=== PATIENT | female | born 1990 | race Caucasian/White ===

== ENCOUNTER 2025-09-03 19:24 | Inpatient (IN) | payer OTHER, SELFPAY ==
--- OUTSIDE RECORDS SUMMARY | 2025-09-03 19:16 | XMS RPT_ITS | CCD ---
Author Organization [facility] Care Team Providers Care Inspector Wire [employer] Name Role Phone Unavailable Primary Care Provider Unavailabl e Yon Carrero Referring Unavailable Magan, Yon Attending Unavailable Magan, Karvinny Admitting Unavailable Care Physician, No Primary Primary Care Unava ilable PHILLIP SAPPA Attending Unavailable PLOTTS, LALITA Referring Unavailable PLOTTS, LALITA Referring Unavailable CHINO, PINA Referring Unavailable GARCIA, WESTLEY Attending Unavailable GARCIA, WESTLEY Referring Unavailable PLOTTS, LALITA Attending Unavailable PLOTTS, LALITA Referring Unavailable PLOTTS, LALITA Attending Unavailable SELF Referring Unavailable PLOTTS, LALITA Referring Unavailable GARCIA, WESTLEY Referring Unavailable CHINO, PINA Attending Unavailable SELF Referring Unavailable CHINO, PINA Referring Unavailable JINA ESCALERA Attending Unavailable SELF Referring Unavailable GARCIA, WESTLEY Attending Unavailable MAGAN, KARMON Referring Unavailable CHINO, PINA Attending Unavailable MAGAN, KARMON Referring Unavailable SELF Referring Unavailable MAGAN, KARMON Attending Unavailable SELF Referring Unavailable PLOTTS, LALITA Referring Unavailable MAGAN, KARMON Attending Unavailable PLOTTS, LALITA Referring Unavailable MAGAN, KARMON Attending Unavailable SELF Referring Unavailable EDOUARD, VIDA L Attending Unavailable SELF Referring Unavailable EDOUARD VIDA L Attending Unavailable SELF Referring Unavailable CHINO, PINA Referring Unavailable WISWELL, PATSY Attending Unavailable WISWELL, PATSY Referring Unavailable Allergies Allergy Classification Reported Allergen(s) Allergy Type Date of Onset Reaction(s) Facility (12 sources) Tetracycline; Translations: [TETRACYCLINE] Drug Allergy 01-17-2025 GI Upset [facility] Medications Current Medications Medication Drug Class(es) Dates Sig (Normalized) Sig (Original) aspirin 81 mg delayed release oral tablet (11 sources) Platelet Aggregation Inhibitor, Nonsteroidal Anti-inflammatory Drug Start: 01-18-2025 take 1 tablet by mouth once daily aspirin, enteric coated (ECOTRIN LOW STRENGTH) 81 mg EC tablet Indications: with uncertain dates in first trimester (HCC) , care, first in first trimester (HCC) Take 1 tablet by mouth once daily. 90 tablet 3 01/18/2025 Active Breast Pump (1 source) Start: 06-19-2025 End: 06-19-2026 Breast Pump Use as directed 1 each 06/19/2025 06/19/2026 Active Docosahexaenoate (5 sources) docosahexaenoic acid (DHA ORAL) Take by mouth. Active hydrocortisone 10 mg/ml topical cream (1 source) Corticosteroid Start: 02-20-2025 End: 03-06-2025 hydrocortisone 1 % cream Apply to affected area once daily as needed for up to 14 days. 30 g 02/20/2025 03/06/2025 Active Magnesium glycinate (3 sources) MAGNESIUM GLYCIN ATE PO Take by mouth. Active miconazole nitrate 20 mg/ml vaginal cream (2 sources) Azole Antifungal Start: 02-17-2025 End: 02-24-2025 miconazole (MONISTAT 7) 2 % vaginal cream Indications: 12 weeks gestation of (HCC) Use 1 applicator vaginally daily at bedtime for 7 days. 54 g 02/17/2025 02/24/2025 Active NO.032-[id number]-DHA ORAL (11 sources) take 1 tablet by mouth once daily NO.[id number]-D HICKS ORAL Take 1 tablet by mouth once daily. Active Completed/Discontinued Medications Medication Drug Class(es) Dates Sig (Normalized) Sig (Original) calcium/magnesium (CALCIUM AND MAGNESIUM ORAL) (9 sources) End: 05-16-2025 take 1 tablet by mouth once daily calcium/magnesium (CALCIUM AND MAGNESIUM ORAL) Take 1 tablet by mouth once daily. 05/16/2025 Discontinued take 1 tablet by mouth once roldan y calcium/magnesium (CALCIUM AND MAGNESIUM ORAL) Take 1 tablet by mouth once daily. Active Problems Active Problems Problem Classification Problem Date Documented Da te Episodic/Chronic Heart valve disorders (1 source) Rheumatic tricuspid insufficiency; Translations: [Tricuspid valve insufficiency, unspecified etiology] Onset: 07-05-2025 Chronic Immunizations and screening for infectious disease (13 sources) Patient encounter status; Translations: [Encounter for screening for infections with a predominantly sexual mode of transmission] Onset: 01-18-2025 01-18-2025 Episodic Mycoses (1 source) Candidiasis of vagina; Translations: [Vaginal yeast infection] 02-17-2025 Episodic Other complications of (1 source) Uterine size-date discrepancy, third trimester; Translations: [Uterine size-date discrepancy, third trimester (HCC)] Onset: 08-16-2025 Episodic Other gastrointestinal disorders (1 source) Constipation; Translations: [Constipation, unspecified] 04-04-2025 Episodic Other infections; including parasitic (1 source) Personal history of other infectious and parasitic diseases; Translations: [History of cold sores] Onset: 08-03-2025 Episodic Other inflammatory condition of skin (1 source) Other psoriatic arthropathy; 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[facility])] Onset: 08-10-2025 Chronic Other inflammatory condition of skin (1 source) Arthropathic psoriasis, unspecified; Translations: [Psoriatic arthritis ([facility])] Onset: 08-09-2025 Chronic Other inflammatory condition of skin (1 source) Seborrheic dermatitis, unspecified; Translations: [Seborrheic dermatitis] Onset: 07-05-2025 Episodic Other nervous system disorders (1 source) Carpal tunnel syndrome, left upper limb; Translations: [Carpal tunnel syndrome on left] Onset: 07-05-2025 Chronic Other non-traumatic joint disorders (2 sources) Bilateral pain of joint of hands; Translations: [Pain in joints of right hand] 05-16-2025 Episodic Other non-traumatic joint disorders (1 source) Pain in joints of right hand; Translations: [Arthralgia of both hands] Onset: 08-10-2025 Episodic Other non-traumatic joint disorders (1 source) Pain in joints of left hand; Translations: [Arthralgia of both hands] Onset: 08-10-2025 Episodic Other and delivery including normal (20 sources) with uncertain dates; Translations: [First trimester ] Onset: 01-18-2025 01-18-2025 Episodic Other screening for suspected conditions (not mental disorders or infectious disease) (3 sources) Cancer cervix screening status; Translations: [Encounter for screening for malignant neoplasm of cervix] Onset: 01-18-2025 01-18-2025 Episodic Other skin disorders (2 sources) Eruption; Translations: [Rash and other nonspecific skin eruption] 05-16-2025 Episodic Other skin disorders (1 source) Rash and other nonspecific skin eruption; Translations: [Rash] Onset: 07-05-2025 Episodic Other skin disorders (1 source) Other nail disorders; Translations: [Nail pitting] Onset: 07-05-2025 Episodic Jennifer-; endo-; and myocarditis; cardiomyopathy (except that caused by tuberculosis or sexually transmitted disease) (12 sources) Heart valve disorder; Translations: [Endocarditis, valve unspecified] 01-18-2025 Chronic Residual codes; unclassified (2 sources) Gestation period, 12 weeks; Translations: [12 weeks gestation of ] 02-17-2025 Episodic Residual codes; unclassified (1 source) Gestation period, 16 weeks; Translations: [16 weeks gestation of ] 03-17-2025 Episodic Residual codes; unclassified (2 sources) Gestation period, 18 weeks; Translations: [18 weeks gestation of ] 04-04-2025 Episodic Residual codes; unclassified (1 source) Gestation period, 24 weeks; Translations: [24 weeks gestation of ] 05-16-2025 Episodic Residual codes; unclassified (1 source) Gestation period, 26 weeks; Translations: [26 weeks gestation of ] 05-30-2025 Episodic Residual codes; unclassified (1 source) Gestation period, 29 weeks; Translations: [29 weeks gestation of ] 06-19-2025 Episodic Residual codes; unclassified (1 source) 38 weeks gestation of ; Translations: [38 weeks gestation of (HCC)] Onset: 08-16-2025 Episodic Residual codes; unclassified (1 source) Family history of diseases of the skin and subcutaneous tissue; Translations: [Family history of psoriasis] Onset: 08-10-2025 Episodic Residual codes; unclassified (1 source) 37 weeks gestation of ; Translations: [37 weeks gestation of (HCC)] Onset: 08-09-2025 Episodic Residual codes; unclassified (1 source) 36 weeks gestation of ; Translations: [36 weeks gestation of (HCC)] Onset: 08-03-2025 Episodic Residual codes; unclassified (1 source) 34 weeks gestation of ; Translations: [34 weeks gestation of (HCC)] Onset: 07-19-2025 Episodic Residual codes; unclassified (1 source) 32 weeks gestation of ; Translations: [32 weeks gestation of (HCC)] Onset: 07-05-2025 Episodic Residual codes; unclassified (1 source) 29 weeks gestation of ; Translations: [29 weeks gestation of (HCC)] Onset: 06-19-2025 Episodic Residual codes; unclassified (1 source) 26 weeks gestation of ; Translations: [26 weeks gestation of (HCC)] Onset: 05-30-2025 Episodic Residual codes; unclassified (1 source) 24 weeks gestation of ; Translations: [24 weeks gestation of (HCC)] Onset: 05-30-2025 Episodic Unclassified (11 sources) [facility] Education - COMMON Onset: 01-18-2025 01-18-2025 Unclassified (11 sources) Education - [place] Onset: 01-18-2025 01-18-2025 Unclassified (1 source) Vaginal yeast infection; Translations: [Vaginal yeast infection] Onset: 02-17-2025 Past or Other Problems Problem Classification Problem Date Documented Date Episodic/Chronic Nausea and vomiting (13 sources) Nausea; Translations: [Nausea] Onset: 01-18-2025 01-18-2025 Episodic Residual codes; unclassified (1 source) 18 weeks gestation of ; Translations: [18 weeks gestation of ([facility])] Onset: 04-04-2025 Episodic Residual codes; unclassified (1 source) 16 weeks gestation of ; Translations: [16 weeks gestation of ([facility])] Onset: 03-17-2025 Episodic Residual codes; unclassified (1 source) 12 weeks gestation of ; Translations: [12 weeks gestation of ([facility])] Onset: 02-17-2025 Episodic Viral infection (12 sources) Oral herpes simplex infection; Translations: [Herpesviral gingivostomatitis and pharyngotonsillitis] Onset: 02-17-2025 02-17-2025 Episodic Results Test Name Value Interpretation Reference Range Facil ity CBC panel Auto (Bld)on 08-10 Erythrocyte distribution width (RBC) [Ratio] 13.5 % Normal 11.5-15.0 [facility] Comment on above: Order Comment: Speci men Type: BLOOD SPECIMEN Ordering Facility: [facility] Address: [address] [place] [address] Performed By: #### 5 8410-2 #### [id number] [address] [place] [address] [place] Hematocrit (Bld) [Volume fraction] 40.3 % Normal 36.0-46.0 [facility] Comment on above: Order Comment: Speci men Type: BLOOD SPECIMEN Ordering Facility: [facility] Address: [address] [place] [address] Performed By: #### 5 8410-2 #### [facility] [id number] [address] [place] [address] [place] Hemoglobin (Bld) [Mass/Vol] 14.0 g/dL Normal 11.5-15.5 [facility] Comment on above: Order Comment: Speci men Type: BLOOD SPECIMEN Ordering Facility: [facility] Address: [address] [place] [address] Performed By: #### 5 8410-2 #### [facility] [id number] [address] [place] [address] [place] MCH (RBC) [Entitic mass] 30.6 pg Normal 26.0-34.0 [facility] Comment on above: Order Comment: Speci men Type: BLOOD SPECIMEN Ordering Facility: [facility] Address: [address] [place] [address] Performed By: #### 5 8410-2 #### [facility] [id number] [address] [place] [address] [place] MCHC (RBC) [Mass/Vol] 34.7 g/dL Normal 30.5-36.0 [facility] Comment on above: Order Comment: Speci men Type: BLOOD SPECIMEN Ordering Facility: [facility] Address: [address] [place] [address] Performed By: #### 5 8410-2 #### [facility] [id number] [address] [place] [address] [place] MCV (RBC) [Entitic vol] 88.0 fL Normal 80.0-100.0 [facility] Comment on above: Order Comment: Speci men Type: BLOOD SPECIMEN Ordering Facility: [facility] Address: [address] [place] [address] Performed By: #### 5 8410-2 #### [facility] CLIA [id number] [address] [place] [address] [place] Nucleated RBC (Bld) [#/Vol] 10*3/uL Normal <0.01 [facility] Comment on above: Order Comment: Speci men Type: BLOOD SPECIMEN Ordering Facility: [facility] Address: [address] [place] [address] Performed By: #### 5 8410-2 #### [facility] CLIA [id number] [address] [place] [address] [place] Platelet mean volume (Bld) [Entitic vol] 11.3 fL Normal 9.0-12.7 [facility] Comment on above: Order Comment: Speci men Type: BLOOD SPECIMEN Ordering Facility: [facility] Address: [address] [place] [address] Performed By: #### 5 8410-2 #### [facility] CLIA [id number] [address] [place] [address] [place] Platelets (Bld) [#/Vol] 154 10*3/uL Normal 150-400 [facility] Comment on above: Order Comment: Speci men Type: BLOOD SPECIMEN Ordering Facility: [facility] Address: [address] [place] [address] Performed By: #### 5 8410-2 #### [facility] CLIA [id number] [address] [place] [address] [place] RBC (Bld) [#/Vol] 4.58 10*6/uL Normal 3.90-5.20 [facility] Comment on above: Order Comment: Speci men Type: BLOOD SPECIMEN Ordering Facility: [facility] Address: [address] [place] [address] Performed By: #### 5 8410-2 #### [facility] [id number] [address] [place] [address] [place] WBC (Bld) [#/Vol] 7.85 10*3/uL Normal 3.70-11.00 [facility] Comment on above: Order Comment: Speci men Type: BLOOD SPECIMEN Ordering Facility: [facility] Address: [address] [place] [address] Performed By: #### 5 8410-2 #### [facility] [id number] [address] [place] [address] OF [place] CNOVon 08-10-2025 CNOV Office Visit (RHWSTR ) CHEMA BARBOSA ([id number]) 1990 F INT Date Time Provider Department 08/10/25 10:30 AM PINA MAGANA RHWSTR During your visit today, we recorded the following information about you: Pulse Respiration Blood pressure 117/minute 17/minute 131/89 Pina Magana PA-C 08/10/2025 5:14 PM Signed Rheumatology FOLLOW UP VISIT Date of Service: 08/10/2025 Patient: Chema Barbosa Medical Record: [id number] Primary Care Physician: No primary care provider on file. Last Rheumatology visit: 07/05/2025 (with Pina Magana) History of Present Illness Chema Barbosa is a 35-year-old female, , with a history of arthralgias and stiffness, presenting for follow-up. Chema is currently and due in approximately one week. She reports persistent arthralgias and stiffness, primarily in the hands, wrists, and knees. She notes that the pain and stiffness are most pronounced in the morning. She denies significant edema, stating that any swelling is likely due to her current weight gain of approximately 16 kg. She recently completed a 6-day course of methylprednisolone, starting on July 28 and ending on August 03, prescribed by her ENT at [facility]. She reports significant improvement in joint pain and stiffness while on the medication, with pain levels decreasing to 7/10. However, she notes that the pain began to return two days ago and is now back to a 7/10 severity. She expresses reluctance to continue long-term corticosteroid use due to potential risks to both herself and her baby. She is currently taking sulfasalazine, 1 tablet twice daily, but reports no noticeable benefits from the medication. She denies any side effects from sulfasalazine. She also reports worsening ear symptoms today, which she believes may be related to blood pressure fluctuations. Her blood pressure readings have been 120/86 mmHg yesterday and 131/89 mmHg today. She denies significant proteinuria, noting only trace amounts, and is actively managing her diet to reduce edema. This is her first , and she is hoping for a natural delivery without induction. She expresses a preference for her baby to be born after August 27. She is currently seeing her OB weekly and reports that her OB was supportive of her recent methylprednisolone taper. Pain Evaluation 07/05/2025 08/10/2025 Pain Evaluation Pain Score 6 7 Location Hand-Left Location Comment b/l Frequency Continuous Continuous Patient-Entered Data PROMIS Assessments No data to display No data to display No data to display No data to display RAPID 3 Nicole Activities of Daily Living No Data Dress self? - Get in and out of bed? - Walk outdoors? - Wash and dry body? - Get in and out of car? - RAPID 3 Disease Activity Weighed Score Levels: 0 - 1: Near Remission 1.3 - 2.0: Low Severity 2.3 - 4.0: Moderate Severity 4.3 - 10.0: High Severity No data to display Review of Systems ROS RHEUMATOLOGYAll other reviewed and negative other than HPI. Past Medical History PAST MEDICAL HISTORY Diagnosis Date Broken arm right age 13 Heart valve disorder tricuspid valve Past Surgical History History reviewed. No pertinent surgical history. Family History FAMILY HISTORY Problem Relation Age of Onset Hypertension Mother Alcohol abuse Father Social History SOCIAL HISTORY[1] Current Medications Current Outpatient Medications Medication Sig folic acid 1 mg tablet Take 2 tablets by mouth once daily. OTC NUTRITIONAL SUPPLEMENT Take 1 capsule by mouth once daily. CDP cholin MAGNESIUM GLYCINATE PO Take by mouth. aspirin, enteric coated (ECOTRIN LOW STRENGTH) 81 mg EC tablet Take 1 tablet by mouth once daily. NO.579-[id number]-[id number]-DHA ORAL Take 1 tablet by mouth once daily. methylPREDNISolone (MEDROL) 4 mg Take 4 tablets by mouth once daily for 3 days, THEN 3 tablets once daily for 3 days, THEN 2 tablets once daily for 3 days, THEN 1 tablet once daily. sulfaSALAzine (AZULFIDINE) 500 mg tablet Take 1000 mg in the morning and 500 mg in the evening. acyclovir (ZOVIRAX) 400 mg tablet Take 1 tablet by mouth three times a day. docosahexaenoic acid (DHA ORAL) Take by mouth. Labs Latest Ref Rng AND Units 02/17/2025 05/30/2025 07/20/2025 08/10/2025 CBC WBC 3.70 - 11.00 k/uL 6.07 7.53 8.44 7.85 Hemoglobin 11.5 - 15.5 g/dL 13.7 12.6 13.8 14.0 Hematocrit 36.0 - 46.0 % 39.6 37.1 38.6 40.3 Platelet Count 150 - 400 k/uL 196 174 161 154 Abs Neut (ANC) 1.45 - 7.50 k/uL 4.43 5.51 6.73 Abs Lymph 1.00 - 4.00 k/uL 1.17 1.31 0.92 Latest Ref Rng AND Units 07/20/2025 08/10/2025 CMP Sodium 136 - 144 mmol/L 135 135 Potassium 3.7 - 5.1 mmol/L 4.1 4.2 Chloride 98 - 107 mmol/L 105 105 CO2 22 - 30 mmol/L 17 18 Glucose 74 - 99 mg/dL 138 105 BUN 7 - 21 mg/dL 5 9 Creati (more content not included)... Normal [facility] Comprehensive metabolic 2000 panelon 08-10-2025 Albumin [Mass/Vol] 3.7 g/dL Low 3.9-4.9 [facility] Comment on above: Order Comment: Speci men Type: BLOOD SPECIMEN Ordering Facility: [facility] Address: [address] [place] [place] [id number] Performed By: #### 5 8410-2 #### [facility] CL[facility] [id number] [address] [place] [address] [place] ALP [Catalytic activity/Vol] 125 U/L High 34-123 [facility] Comment on above: Order Comment: Speci men Type: BLOOD SPECIMEN Ordering Facility: [facility] Address: [address] [place] [address] Performed By: #### 5 8410-2 #### [facility] CLIA [id number] [address] [place] [address] [place] ALT [Catalytic activity/Vol] 18 U/L Normal 7-38 [facility] Comment on above: Order Comment: Speci men Type: BLOOD SPECIMEN Ordering Facility: [facility] Address: [address] [place] [address] Performed By: #### 5 8410-2 #### [facility] CLIA [id number] [address] [place] [address] [place] Anion gap [Moles/Vol] 12 mmol/L Normal 8-15 [facility] Comment on above: Order Comment: Speci men Type: BLOOD SPECIMEN Ordering Facility: [facility] Address: [address] [place] [address] Performed By: #### 5 8410-2 #### [facility] CLIA [id number] [address] [place] [address] [place] AST [Catalytic activity/Vol] 15 U/L Normal 13-35 [facility] Comment on above: Order Comment: Speci men Type: BLOOD SPECIMEN Ordering Facility: [facility] Address: [facility] [place] [address] Performed By: #### 5 8410-2 #### [facility] CLIA [id number] [address] [place] [address] [place] Bilirubin [Mass/Vol] 0.4 mg/dL Normal 0.2-1.3 [facility] Comment on above: Order Comment: Speci men Type: BLOOD SPECIMEN Ordering Facility: [facility] Address: [address] [place] [address] Performed By: #### 5 8410-2 #### [facility] CLIA [id number] [address] [place] [address] [place] Calcium [Mass/Vol] 9.8 mg/dL Normal 8.5-10.2 [facility] Comment on above: Order Comment: Speci men Type: BLOOD SPECIMEN Ordering Facility: [facility] Address: [address] [place], [place] [id number] Performed By: #### 5 8410-2 #### [facility] CLIA [id number] [address] [place] [address] [place] Chloride [Moles/Vol] 105 mmol/L Normal 98-107 [facility] Comment on above: Order Comment: Speci men Type: BLOOD SPECIMEN Ordering Facility: [facility] Address: [address] [place] [address] Performed By: #### 5 8410-2 #### [facility] CLIA [id number] [address] [place] [address] [place] CO2 [Moles/Vol] 18 mmol/L Low 22-30 [facility] Comment on above: Order Comment: Speci men Type: BLOOD SPECIMEN Ordering Facility: [facility] Address: [address] [place] [address] Performed By: #### 5 8410-2 #### [facility] CLIA [id number] [address] [place] [address] [place] Creatinine [Mass/Vol] 0.65 mg/dL Normal 0.58-0.96 [facility] Comment on above: Order Comment: Speci men Type: BLOOD SPECIMEN Ordering Facility: [facility] Address: [address] [place] [address] Performed By: #### 5 8410-2 #### [facility] [id number] [address] [place] [address] [place] eGFRcr SerPlBld CKD-EPI 2020 119 mL/min/1.73m??? Normal >=60 [facility] Comment on above: Order Comment: Eric fierro Type: BLOOD SPECIMEN Ordering Facility: [facility] Address: [address] [place] [address] Result Comment: Rosa mated Glomerular Filtration Rate (eGFR) is calculated using the 2020 CKD-EPI creatinine equation. This equation utilizes serum creatinine, sex, and age as parameters. The creatinine assay has traceable calibration to isotope dilution-mass spectrometry. Refer to KDIGO guidelines for clinical interpretation. In patients with unstable renal function, e.g. those with acute kidney injury, the eGFR may not accurately reflect actual GFR. Performed By: #### 5 8410-2 #### [facility] CLIA [id number] [address] [place] [address] [place] Glucose [Mass/Vol] 105 mg/dL High 74-99 [facility] Comment on above: Order Comment: Eric fierro Type: BLOOD SPECIMEN Ordering Facility: [facility] Address: [address] [place] [address] Result Comment: The [place] [employer] (ADA) provides guidance for cutoff values for fasting glucose and random glucose. The ADA defines fasting as no caloric intake for at least 8 hours. Fasting plasma glucose results between 100 to 125 mg/dL indicate increased risk for diabetes (prediabetes). Fasting plasma glucose results greater than or equal to 126 mg/dL meet the criteria for diagnosis of diabetes. In the absence of unequivocal hyperglycemia, results should be confirmed by repeat testing. In a patient with classic symptoms of hyperglycemia or hyperglycemic crisis, random plasma glucose results greater than or equal to 200 mg/dL meet the criteria for diagnosis of diabetes. Reference: Standards of Medical Care in Diabetes 2016, [place] [employer]. Diabetes Care. 2016.39(Suppl 1). Performed By: #### 5 8410-2 #### [facility] CLIA [id number] [address] [place] [address] [place] Potassium [Moles/Vol] 4.2 mmol/L Normal 3.7-5.1 [facility] Comment on above: Order Comment: Speci men Type: BLOOD SPECIMEN Ordering Facility: [facility] Address: [address] [place] [address] Performed By: #### 5 8410-2 #### [facility] CLIA [id number] [address] [place] [address] [place] Protein [Mass/Vol] 6.6 g/dL Normal 6.3-8.0 [facility] Comment on above: Order Comment: Speci men Type: BLOOD SPECIMEN Ordering Facility: [facility] Address: [address] [place] [address] Performed By: #### 5 8410-2 #### [facility] [id number] [address] [place] [address] [place] Sodium [Moles/Vol] 135 mmol/L Low 136-144 [facility] Comment on above: Order Comment: Speci men Type: BLOOD SPECIMEN Ordering Facility: [facility] Address: [address] [place] [address] Performed By: #### 5 8410-2 #### [facility] [id number] [address] [place] [address] [place] Urea nitrogen [Mass/Vol] 9 mg/dL Normal 7-21 [facility] Comment on above: Order Comment: Speci men Type: BLOOD SPECIMEN Ordering Facility: [facility] Address: [address] [place] [address] Performed By: #### 5 8410-2 #### [facility] CLIA [id number] [address] [place] [address] [place] ROUTINE, GROUP B ST REPTOCOCCUS BY PCRon 08-03-2025 ROUTINE, GROUP B STREPTOCOCCUS BY PCR Not detected Normal [facility] Comment on above: Performed By: #### G LTGST #### [facility] CLIA [id number] [address] [place] [address] [place] CBC W Auto Differential pane l (Bld)on 07-20-2025 Basophils (Bld) [#/Vol] 10*3/uL Normal <0.11 [facility] Comment on above: Order Comment: Speci men Type: BLOOD SPECIMEN Ordering Facility: [facility] Address: [address] [place] [address] Performed By: #### 5 7021-8 #### [facility] CLIA [id number] [address] [place] [address] [place] Basophils/100 WBC (Bld) 0.2 % Normal [facility] Comment on above: Order Comment: Speci men Type: BLOOD SPECIMEN Ordering Facility: [facility] Address: [address] [place] [address] Performed By: #### 5 7021-8 #### [facility] CLIA [id number] [address] [place] [address] [place] Differential cell count method Nom (Bld) Auto Normal [facility] Comment on above: Order Comment: Speci men Type: BLOOD SPECIMEN Ordering Facility: [facility] Address: [address] [place] [address] Performed By: #### 5 7021-8 #### [facility] CLIA [id number] [address] [place] [address] [place] Eosinophils (Bld) [#/Vol] 0.04 10*3/uL Normal <0.46 [facility] Comment on above: Order Comment: Speci men Type: BLOOD SPECIMEN Ordering Facility: [facility] Address: [address] [place] [address] Performed By: #### 5 7021-8 #### [facility] CLIA [id number] [address] [place] [address] [place] Eosinophils/100 WBC (Bld) 0.5 % Normal [facility] Comment on above: Order Comment: Speci men Type: BLOOD SPECIMEN Ordering Facility: [facility] Address: [address] [place] [address] Performed By: #### 5 7021-8 #### [facility] CLIA [id number] [address] [place] [address] [place] Erythrocyte distribution width (RBC) [Ratio] 13.2 % Normal 11.5-15.0 [facility] Comment on above: Order Comment: Speci men Type: BLOOD SPECIMEN Ordering Facility: [facility] Address: [address] [place] [address] Performed By: #### 5 7021-8 #### [facility] [id number] [address] [place] [address] [place] Hematocrit (Bld) [Volume fraction] 38.6 % Normal 36.0-46.0 [facility] Comment on above: Order Comment: Speci men Type: BLOOD SPECIMEN Ordering Facility: [facility] Address: [address] [place] [address] Performed By: #### 5 7021-8 #### [facility] [id number] [address] [place] [address] [place] Hemoglobin (Bld) [Mass/Vol] 13.8 g/dL Normal 11.5-15.5 [facility] Comment on above: Order Comment: Speci men Type: BLOOD SPECIMEN Ordering Facility: [facility] Address: [address] [place] [address] Performed By: #### 5 7021-8 #### [facility] CLIA [id number] [address] [place] [address] [place] Immature granulocytes (Bld) [#/Vol] 0.11 10*3/uL High <0.10 [facility] Comment on above: Order Comment: Speci men Type: BLOOD SPECIMEN Ordering Facility: [facility] Address: [address] [place] [address] Performed By: #### 5 7021-8 #### [facility] CLIA [id number] [address] [place] [address] [place] Immature granulocytes/100 WBC (Bld) 1.3 % Normal [facility] Comment on above: Order Comment: Speci men Type: BLOOD SPECIMEN Ordering Facility: [facility] Address: [address] [place] [address] Performed By: #### 5 7021-8 #### [facility] [id number] [address] [place] [address] [place] Lymphocytes (Bld) [#/Vol] 0.92 10*3/uL Low 1.00-4.00 [facility] Comment on above: Order Comment: Speci men Type: BLOOD SPECIMEN Ordering Facility: [facility] Address: [address] [place] [address] Performed By: #### 5 7021-8 #### [facility] [id number] [address] [place] [address] [place] Lymphocytes/100 WBC (Bld) 10.9 % Normal [facility] Comment on above: Order Comment: Speci men Type: BLOOD SPECIMEN Ordering Facility: [facility] Address: [address] [place] [address] Performed By: #### 5 7021-8 #### [facility] [id number] [address] [place] [address] [place] MCH (RBC) [Entitic mass] 30.9 pg Normal 26.0-34.0 [facility] Comment on above: Order Comment: Speci men Type: BLOOD SPECIMEN Ordering Facility: [facility] Address: [address] [place] [address] Performed By: #### 5 7021-8 #### [facility] CLIA [id number] [address] [place] [address] [place] MCHC (RBC) [Mass/Vol] 35.8 g/dL Normal 30.5-36.0 [facility] Comment on above: Order Comment: Speci men Type: BLOOD SPECIMEN Ordering Facility: [facility] Address: [address] [place] [address] Performed By: #### 5 7021-8 #### [facility] CLIA [id number] [address] [place] [address] [place] MCV (RBC) [Entitic vol] 86.4 fL Normal 80.0-100.0 [facility] Comment on above: Order Comment: Speci men Type: BLOOD SPECIMEN Ordering Facility: [facility] Address: [address] [place] [address] Performed By: #### 5 7021-8 #### [facility] CLIA [id number] [address] [place] [address] [place] Monocytes (Bld) [#/Vol] 0.62 10*3/uL Normal <0.87 [facility] Comment on above: Order Comment: Speci men Type: BLOOD SPECIMEN Ordering Facility: [facility] Address: [address] [place] [address] Performed By: #### 5 7021-8 #### [facility] CLIA [id number] [address] [place] [address] [place] Monocytes/100 WBC (Bld) 7.3 % Normal [facility] Comment on above: Order Comment: Speci men Type: BLOOD SPECIMEN Ordering Facility: [facility] Address: [address] [place] [address] Performed By: #### 5 7021-8 #### [facility] CLIA [id number] [address] [place] [address] [place] Neutrophils (Bld) [#/Vol] 6.73 10*3/uL Normal 1.45-7.50 [facility] Comment on above: Order Comment: Speci men Type: BLOOD SPECIMEN Ordering Facility: [facility] Address: [address] [place] [address] Performed By: #### 5 7021-8 #### [facility] CLIA [id number] [address] [place] [address] [place] Neutrophils/100 WBC (Bld) 79.8 % Normal [facility] Comment on above: Order Comment: Speci men Type: BLOOD SPECIMEN Ordering Facility: [facility] Address: [address] [place] [address] Performed By: #### 5 7021-8 #### [facility] [id number] [address] [place] [address] [place] Nucleated RBC (Bld) [#/Vol] 10*3/uL Normal <0.01 [facility] Comment on above: Order Comment: Speci men Type: BLOOD SPECIMEN Ordering Facility: [facility] Address: [address] [place] [address] Performed By: #### 5 7021-8 #### [facility] [id number] [address] [place] [address] [place] Nucleated RBC/100 WBC (Bld) [Ratio] 0.0 /100 WBC Normal [facility] Comment on above: Order Comment: Speci men Type: BLOOD SPECIMEN Ordering Facility: [facility] Address: [address] [place] [address] Performed By: #### 5 7021-8 #### [facility] [id number] [address] [place] [address] [place] Platelet mean volume (Bld) [Entitic vol] 11.7 fL Normal 9.0-12.7 [facility] Comment on above: Order Comment: Speci men Type: BLOOD SPECIMEN Ordering Facility: [facility] Address: [address] [place] [address] [place] [address] Performed By: #### 5 7021-8 #### [facility] CLIA [id number] [address] [place] [address] [place] Platelets (Bld) [#/Vol] 161 10*3/uL Normal 150-400 [facility] Comment on above: Order Comment: Speci men Type: BLOOD SPECIMEN Ordering Facility: [facility] Address: [address] [place], [place] [address] Performed By: #### 5 7021-8 #### [facility] CLIA [id number] [address] [place] [address] [place] RBC (Bld) [#/Vol] 4.47 10*6/uL Normal 3.90-5.20 [facility] Comment on above: Order Comment: Speci men Type: BLOOD SPECIMEN Ordering Facility: [facility] Address: [address] [place], [place] [address] Performed By: #### 5 7021-8 #### [facility] CLIA [id number] [address] [place] [address] [place] WBC (Bld) [#/Vol] 8.44 10*3/uL Normal 3.70-11.00 [facility] Comment on above: Order Comment: Speci men Type: BLOOD SPECIMEN Ordering Facility: [facility] Address: [address] [place], [place] [address] Performed By: #### 5 7021-8 #### [facility] CLIA [id number] [address] [place] [address] [place] Comprehensive metabolic 2000 panelon 07-20-2025 Albumin [Mass/Vol] 3.7 g/dL Low 3.9-4.9 [facility] Comment on above: Order Comment: Speci men Type: FLUID SPECIMEN Ordering Facility: [facility] Address: [address] [place], [place] [address] Performed By: #### L [id number] #### [facility] CLIA [id number] [address] [place], [place] [address] [place] ALP [Catalytic activity/Vol] 107 U/L Normal 34-123 [facility] Comment on above: Order Comment: Speci men Type: FLUID SPECIMEN Ordering Facility: [facility] Address: [address] [place] [address] Performed By: #### L [id number] #### [facility] CLIA [id number] [address] [place] [address] [place] ALT [Catalytic activity/Vol] 36 U/L Normal 7-38 [facility] Comment on above: Order Comment: Speci men Type: FLUID SPECIMEN Ordering Facility: [facility] Address: [address] [place] [address] Performed By: #### L [id number] #### [facility] CLIA [id number] [address] [place] [address] [place] Anion gap [Moles/Vol] 13 mmol/L Normal 8-15 [facility] Comment on above: Order Comment: Speci men Type: FLUID SPECIMEN Ordering Facility: [facility] Address: [address] [place] [address] Performed By: #### L [id number] #### [facility] CLIA [id number] [address] [place] [address] [place] AST [Catalytic activity/Vol] 27 U/L Normal 13-35 [facility] Comment on above: Order Comment: Speci men Type: FLUID SPECIMEN Ordering Facility: [facility] Address: [address] [place], [place] [address] Performed By: #### L [id number] #### [facility] CLIA [id number] [address] [place] [address] [place] Bilirubin [Mass/Vol] 0.4 mg/dL Normal 0.2-1.3 [facility] Comment on above: Order Comment: Speci men Type: FLUID SPECIMEN Ordering Facility: [facility] Address: [address] [place] [address] Performed By: #### L [id number] #### [facility] CLIA [id number] [address] [place] [address] [place] Calcium [Mass/Vol] 9.4 mg/dL Normal 8.5-10.2 [facility] Comment on above: Order Comment: Speci men Type: FLUID SPECIMEN Ordering Facility: [facility] Address: [address] [place] [address] Performed By: #### L [id number] #### [facility] CLIA [id number] [address] [place] [address] [place] Chloride [Moles/Vol] 105 mmol/L Normal 98-107 [facility] Comment on above: Order Comment: Speci men Type: FLUID SPECIMEN Ordering Facility: [facility] Address: [address] [place] [address] Performed By: #### L [id number] #### [facility] CLIA [id number] [address] [place] [address] [place] CO2 [Moles/Vol] 17 mmol/L Low 22-30 [facility] Comment on above: Order Comment: Speci men Type: FLUID SPECIMEN Ordering Facility: [facility] Address: [address] [place] [address] Performed By: #### L [id number] #### [facility] CLIA [id number] [address] [place] [address] [place] Creatinine [Mass/Vol] 0.60 mg/dL Normal 0.58-0.96 [facility] Comment on above: Order Comment: Speci men Type: FLUID SPECIMEN Ordering Facility: [facility] Address: [address] [place] [address] Performed By: #### L [id number] #### [facility] CLIA [id number] [address] [place], [place] [address] [place] eGFRcr SerPlBld CKD-EPI 2020 122 mL/min/1.73m??? Normal >=60 [facility] Comment on above: Order Comment: Eric fierro Type: FLUID SPECIMEN Ordering Facility: [facility] Address: [address] [place] [address] Result Comment: Rosa mated Glomerular Filtration Rate (eGFR) is calculated using the 2020 CKD-EPI creatinine equation. This equation utilizes serum creatinine, sex, and age as parameters. The creatinine assay has traceable calibration to isotope dilution-mass spectrometry. Refer to KDIGO guidelines for clinical interpretation. In patients with unstable renal function, e.g. those with acute kidney injury, the eGFR may not accurately reflect actual GFR. Performed By: #### L [id number] #### [facility] CLIA [id number] [address] [place] [address] [place] Glucose [Mass/Vol] 138 mg/dL High 74-99 [facility] Comment on above: Order Comment: Eric fierro Type: FLUID SPECIMEN Ordering Facility: [facility] Address: [address] [place] [address] Result Comment: The [place] Diabetes [employer] (ADA) provides guidance for cutoff values for fasting glucose and random glucose. The ADA defines fasting as no caloric intake for at least 8 hours. Fasting plasma glucose results between 100 to 125 mg/dL indicate increased risk for diabetes (prediabetes). Fasting plasma glucose results greater than or equal to 126 mg/dL meet the criteria for diagnosis of diabetes. In the absence of unequivocal hyperglycemia, results should be confirmed by repeat testing. In a patient with classic symptoms of hyperglycemia or hyperglycemic crisis, random plasma glucose results greater than or equal to 200 mg/dL meet the criteria for diagnosis of diabetes. Reference: Standards of Medical Care in Diabetes 2016, [place] [employer]. Diabetes Care. 2016.39(Suppl 1). Performed By: #### L [id number] #### [facility] CLIA [id number] [address] [place] [address] [place] Potassium [Moles/Vol] 4.1 mmol/L Normal 3.7-5.1 [facility] Comment on above: Order Comment: Speci men Type: FLUID SPECIMEN Ordering Facility: [facility] Address: [address] [place] [address] Performed By: #### L [id number] #### [facility] CLIA [id number] [address] [place] [address] [place] Protein [Mass/Vol] 6.6 g/dL Normal 6.3-8.0 [facility] Comment on above: Order Comment: Speci men Type: FLUID SPECIMEN Ordering Facility: [facility] Address: [address] [place] [address] Performed By: #### L [id number] #### [facility] CLIA [id number] [address] [place] [address] [place] Sodium [Moles/Vol] 135 mmol/L Low 136-144 [facility] Comment on above: Order Comment: Speci men Type: FLUID SPECIMEN Ordering Facility: [facility] Address: [address] [place] [address] Performed By: #### L [id number] #### [facility] CLIA [id number] [address] [place] [address] [place] Urea nitrogen [Mass/Vol] 5 mg/dL Low 7-21 [facility] Comment on above: Order Comment: Speci men Type: FLUID SPECIMEN Ordering Facility: [facility] Address: [address] [place] [address] Performed By: #### L [id number] #### [facility] CLIA [id number] [address] [place] [address] [place] CNCOon 07-06-2025 CNCO Letter Text Normal [facility] VALENTIN BY IFA SCREENon 07-05-20 25 Nuclear Ab Ql (S) Negative Normal Negative [facility] Comment on above: Order Comment: Speci men Type: BLOOD SPECIMEN Ordering Facility: [facility] Address: [address] [place] [address] Result Comment: Anti -nuclear antibody test is used as an aid in diagnosis of systemic autoimmune diseases. Where positive and clinically warranted, follow-up using disease-specific testing is recommended. Low positive titers are not uncommon with advanced age, certain chronic infections, and malignancies among others. Test methodology: Indirect fluorescence immunoassay (IFA) using HEp-2 cells. Performed By: #### 5 8410-2 #### [facility] CLIA [id number] [address] [place] [address] CNOVon 07-05-2025 CNOV Office Visit (RHWSTR ) CHEMA BARBOSA ([id number]) 1990 F INT Date Time Provider Department 07/05/25 11:00 AM PINA MAGANA WSTR During your visit today, we recorded the following information about you: Pulse Respiration Blood pressure Weight 96/minute 17/minute 108/74 82.1 kg Pian Magana PA-C 07/05/2025 12:44 PM Signed Rheumatology CONSULTATION Date of Service: 07/05/2025 Patient: Chema Barbosa Medical Record: [id number] Primary Care Physician: No primary care provider on file. Last Rheumatology visit: None at [facility] Referring Provider: Yon Jackson [place] [phone] Chema Barbosa is here today at request of Dr. Carrero specifically for consultation of my opinion in regards to the chief complaint listed below. Correspondence will be shared today via the [facility] electronic health record or through regular mail, where applicable. 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 Patient/authorized appliance service representative agreed to proceed History of Present Illness The patient is a 35-year-old female with seborrheic dermatitis, presenting at 32 weeks? gestation for evaluation of new-onset inflammatory polyarthritis affecting the hands, wrists, and Achilles tendons. Chema Barbosa reports a 6-8-week history of joint pain in both hands, involving all joints up to the wrists. She notes swelling and warmth in the right wrist and thumb, for which she has been using an yciu-ftd-ulqriyk brace continuously for 6 weeks without improvement. She experiences significant pain at night, particularly when pulling bed sheets, and is unable to make a fist in the morning due to stiffness and swelling. She also reports paresthesia in the left hand, affecting the middle three fingers. Additionally, she has bilateral Achilles tendon pain, worse in the morning and at night, with stiffness lasting approximately 10 minutes. The pain decreases with activity. She notes mild knee pain that began 2 weeks ago, which she attributes to weight gain. She denies pain in the elbows, shoulders, ankles, or feet. Chema Barbosa has a history of chronic mid-thoracic back pain for several years, previously evaluated with an MRI in [place], which showed no significant findings. She denies low back pain or sacroiliac joint pain. 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 She has since switched to T-Angel shampoo and uses topical corticosteroids for flare-ups in the temporal and parietal areas. She reports persistent flaking but denies any plaques. She denies oral or nasal ulcers, photosensitivity, Raynaud's phenomenon, unexplained fevers, ocular inflammation, dry eyes, dry mouth, dyspnea, cough, diarrhea, or hematochezia. She experiences occasional constipation, which she attributes to . She denies weight loss, smoking, alcohol, or drug use. Chema Barbosa has a family history of psoriasis in her grandmother and a great uncle. She denies any family history of rheumatoid arthritis, lupus, Crohn's disease, or ulcerative colitis. She is currently taking baby aspirin for blood pressure management during . She denies any previous miscarriages and this is her first , expecting a boy. She was diagnosed with tricuspid valve regurgitation approximately one year ago via ultrasound. She has no history of surgeries except for a broken arm at age 13, which required surgical intervention. Pain Evaluation 07/05/2025 Pain Evaluation Pain Score 6 Location Hand-Left Location Comment b/l Frequency Continuous Patient-Entered Data N/A Review of Systems ROS RHEUMATOLOGY RHEUMATOLOGIC REVIEW OF SYSTEMS: No ulcers in mouth or nose No photosensenitivity No history of blood clots No miscarriages - first , boy coming. + fatigue No history of Raynaud's No fevers NO bright red painful eyes No sicca No sob No cough No diarrhea, + Occasional constipation + chronic back pain - Prior eval by ortho in [place] - mostly mid-thoracic region, base of ribs, for about 3 years. That was present all day. NO low back or SI joint pain ? 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 Past Medical History PAST MEDICAL HISTORY Diagnosis Date Broken arm right age 13 Heart valve disorder tricuspid valve Past Surgical History No past surgical history on file. ORIF repair age 13 Family History FAMILY HISTORY Problem Relation Age of Onset Hype (more content not included)... Normal [facility] CRP SerPl-ncon 07-05-2025 CRP [Mass/Vol] mg/L Normal <0.9 [facility] Comment on above: Order Comment: Eric fierro Type: FLUID SPECIMEN Ordering Facility: [facility] Address: [address] [place] [address] Performed By: #### L [id number] #### [facility] CLIA [id number] [address] [place] [address] [place] Cyclic citrullinated peptide IgG Qnon 07-05-2025 [facility] ANTIBODY IGG QUALITATIVE Negative Normal Negative [facility] Comment on above: Order Comment: Eric fierro Type: FLUID SPECIMEN Ordering Facility: [facility] Address: [address] [place] [address] Performed By: #### L [id number] #### [facility] CLIA [id number] [address] [place] [address] [place] ESR Westergren method (Bld) [Velocity]on 07-05-2025 ESR (Bld) [Velocity] 15 mm/h Normal 0-20 [facility] Comment on above: Order Comment: Eric fierro Type: FLUID SPECIMEN Ordering Facility: [facility] Address: [address] [place] [address] Performed By: #### L [id number] #### [facility] CLIA [id number] [address] [place] [address] [place] Rheumatoid fact SerPl-aCncon 07-05-2025 Rheumatoid factor Qn [IU]/mL Normal <16 [facility] Comment on above: Order Comment: Speci men Type: FLUID SPECIMEN Ordering Facility: [facility] Address: [address] [place] [address] Performed By: #### L [id number] #### [facility] CLIA [id number] [address] [place] [address] [place] cCP IgG SerPl-aCncon 025 Cyclic citrullinated peptide IgG Qn <15 Normal <20 [facility] Comment on above: Order Comment: Speci men Type: FLUID SPECIMEN Ordering Facility: [facility] Address: [address] [place] [address] Performed By: #### L [id number] #### [facility] CLIA [id number] [address] [place] [address] [place] CBC W Auto Differential pane l (Bld)on 05-30-2025 Basophils (Bld) [#/Vol] 0.03 10*3/uL Normal <0.11 [facility] Comment on above: Order Comment: Speci men Type: BLOOD SPECIMEN Ordering Facility: [facility] Address: [address] [place] [address] Performed By: #### 5 8410-2 #### [facility] CLIA [id number] [address] [place] [address] [place] Basophils/100 WBC (Bld) 0.4 % Normal [facility] Comment on above: Order Comment: Speci men Type: BLOOD SPECIMEN Ordering Facility: [facility] Address: [address] [place] [address] Performed By: #### 5 8410-2 #### [facility] CLIA [id number] [address] [place] [address] [place] Differential cell count method Nom (Bld) Auto Normal [facility] Comment on above: Order Comment: Speci men Type: BLOOD SPECIMEN Ordering Facility: [facility] Address: [address] [place] [address] Performed By: #### 5 8410-2 #### [facility] CLIA [id number] [address] [place] [address] [place] Eosinophils (Bld) [#/Vol] 0.07 10*3/uL Normal <0.46 [facility] Comment on above: Order Comment: Speci men Type: BLOOD SPECIMEN Ordering Facility: [facility] Address: [address] [place] [address] Performed By: #### 5 8410-2 #### [facility] CLIA [id number] [address] [place] [address] [place] Eosinophils/100 WBC (Bld) 0.9 % Normal [facility] Comment on above: Order Comment: Speci men Type: BLOOD SPECIMEN Ordering Facility: [facility] Address: [address] [place] [address] Performed By: #### 5 8410-2 #### [facility] CLIA [id number] [address] [place] [address] [place] Erythrocyte distribution width (RBC) [Ratio] 12.6 % Normal 11.5-15.0 [facility] Comment on above: Order Comment: Speci men Type: BLOOD SPECIMEN Ordering Facility: [facility] Address: [address] [place] [address] Performed By: #### 5 8410-2 #### [facility] CLIA [id number] [address] [place] [address] [place] Hematocrit (Bld) [Volume fraction] 37.1 % Normal 36.0-46.0 [facility] Comment on above: Order Comment: Speci men Type: BLOOD SPECIMEN Ordering Facility: [facility] Address: [address] [place] [address] Performed By: #### 5 8410-2 #### [facility] CLIA [id number] [address] [place] [address] [place] Hemoglobin (Bld) [Mass/Vol] 12.6 g/dL Normal 11.5-15.5 [facility] Comment on above: Order Comment: Speci men Type: BLOOD SPECIMEN Ordering Facility: [facility] Address: [address] [place] [address] Performed By: #### 5 8410-2 #### [facility] CLIA [id number] [address] [place] [address] [place] Immature granulocytes (Bld) [#/Vol] 0.08 10*3/uL Normal <0.10 [facility] Comment on above: Order Comment: Speci men Type: BLOOD SPECIMEN Ordering Facility: [facility] Address: [address] [place] [address] Performed By: #### 5 8410-2 #### [facility] CLIA [id number] [address] [place] [address] [place] Immature granulocytes/100 WBC (Bld) 1.1 % Normal [facility] Comment on above: Order Comment: Speci men Type: BLOOD SPECIMEN Ordering Facility: [facility] Address: [address] [place] [address] Performed By: #### 5 8410-2 #### [facility] CLIA [id number] [address] [place] [address] [place] Lymphocytes (Bld) [#/Vol] 1.31 10*3/uL Normal 1.00-4.00 [facility] Comment on above: Order Comment: Speci men Type: BLOOD SPECIMEN Ordering Facility: [facility] Address: [address] [place] [address] Performed By: #### 5 8410-2 #### [facility] CLIA [id number] [address] [place] [address] [place] Lymphocytes/100 WBC (Bld) 17.4 % Normal [facility] Comment on above: Order Comment: Speci men Type: BLOOD SPECIMEN Ordering Facility: [facility] Address: [address] [place] [address] Performed By: #### 5 8410-2 #### [facility] CLIA [id number] [address] [place] [address] [place] MCH (RBC) [Entitic mass] 30.7 pg Normal 26.0-34.0 [facility] Comment on above: Order Comment: Speci men Type: BLOOD SPECIMEN Ordering Facility: [facility] Address: [address] [place] [address] Performed By: #### 5 8410-2 #### [facility] CLIA [id number] [address] [place] [address] [place] MCHC (RBC) [Mass/Vol] 34.0 g/dL Normal 30.5-36.0 [facility] Comment on above: Order Comment: Speci men Type: BLOOD SPECIMEN Ordering Facility: [facility] Address: [address] [place] [address] Performed By: #### 5 8410-2 #### [facility] CLIA [id number] [address] [place] [address] [place] MCV (RBC) [Entitic vol] 90.5 fL Normal 80.0-100.0 [facility] Comment on above: Order Comment: Speci men Type: BLOOD SPECIMEN Ordering Facility: [facility] Address: [address] [place] [address] Performed By: #### 5 8410-2 #### [facility] [id number] [address] [place] [address] [place] Monocytes (Bld) [#/Vol] 0.53 10*3/uL Normal <0.87 [facility] Comment on above: Order Comment: Speci men Type: BLOOD SPECIMEN Ordering Facility: [facility] Address: [address] [place] [address] Performed By: #### 5 8410-2 #### [facility] CLIA [id number] [address] [place] [address] [place] Monocytes/100 WBC (Bld) 7.0 % Normal [facility] Comment on above: Order Comment: Speci men Type: BLOOD SPECIMEN Ordering Facility: [facility] Address: [address] [place] [address] Performed By: #### 5 8410-2 #### [facility] CLIA [id number] [address] [place] [address] [place] Neutrophils (Bld) [#/Vol] 5.51 10*3/uL Normal 1.45-7.50 [facility] Comment on above: Order Comment: Speci men Type: BLOOD SPECIMEN Ordering Facility: [facility] Address: [address] [place] [address] Performed By: #### 5 8410-2 #### [facility] CLIA [id number] [address] [place] [address] [place] Neutrophils/100 WBC (Bld) 73.2 % Normal [facility] Comment on above: Order Comment: Speci men Type: BLOOD SPECIMEN Ordering Facility: [facility] Address: [address] [place] [address] Performed By: #### 5 8410-2 #### [facility] CLIA [id number] [address] [place] [address] [place] Nucleated RBC (Bld) [#/Vol] 10*3/uL Normal <0.01 [facility] Comment on above: Order Comment: Speci men Type: BLOOD SPECIMEN Ordering Facility: [facility] Address: [address] [place] [address] Performed By: #### 5 8410-2 #### [facility] CLIA [id number] [address] [place] [address] [place] Nucleated RBC/100 WBC (Bld) [Ratio] 0.0 /100 WBC Normal [facility] Comment on above: Order Comment: Speci men Type: BLOOD SPECIMEN Ordering Facility: [facility] Address: [address] [place] [address] Performed By: #### 5 8410-2 #### [facility] CLIA [id number] [address] [place] [address] [place] Platelet mean volume (Bld) [Entitic vol] 10.7 fL Normal 9.0-12.7 [facility] Comment on above: Order Comment: Speci men Type: BLOOD SPECIMEN Ordering Facility: [facility] Address: [address] [place] [address] Performed By: #### 5 8410-2 #### [facility] CLIA [id number] [address] [place] [address] [place] Platelets (Bld) [#/Vol] 174 10*3/uL Normal 150-400 [facility] Comment on above: Order Comment: Speci men Type: BLOOD SPECIMEN Ordering Facility: [facility] Address: [address] [place] [address] Performed By: #### 5 8410-2 #### [facility] CLIA [id number] [address] [place] [address] [place] RBC (Bld) [#/Vol] 4.10 10*6/uL Normal 3.90-5.20 [facility] Comment on above: Order Comment: Speci men Type: BLOOD SPECIMEN Ordering Facility: [facility] Address: [address] [place] [address] Performed By: #### 5 8410-2 #### [facility] CLIA [id number] [address] [place] [address] [place] WBC (Bld) [#/Vol] 7.53 10*3/uL Normal 3.70-11.00 [facility] Comment on above: Order Comment: Speci men Type: BLOOD SPECIMEN Ordering Facility: [facility] Address: [address] [place] [address] Performed By: #### 5 8410-2 #### [facility] CLIA [id number] [address] [place] [address] [place] GESTATIONAL GLUCOSE SCREEN, 1-HOUR, 50 GRAM, NON-FASTINGon 05-30-2025 Glucose [Mass/Vol] 122 mg/dL Normal 74-134 [facility] Comment on above: Order Comment: Eric men Type: BLOOD SPECIMEN Ordering Facility: [facility] Address: [address] [place] [address] Result Comment: [facility] Congress of Obstetricians and Gynecologists (Camacho/Joie) guidelines state a gestational diabetes mellitus positive screen is made, in women not previously diagnosed with overt diabetes, when the 1 hr plasma glucose level is equal to or above 140 mg/dL. The [facility] [employer] [facility] recommends a 135 mg/dL cutoff. Performed By: #### G LTGST #### [facility] [id number] [address] [place] [address] [place] Reagin and Treponema pallidu m IgG and IgM [Interp]on 05-30-2025 T. pallidum IgG+IgM IA Ql (S) Non-Reactive Normal Nonreactive [facility] Comment on above: Order Comment: Speci men Type: BLOOD SPECIMEN Ordering Facility: [facility] Address: [address] [place], [place] [address] Performed By: #### 5 8410-2 #### [facility] CLIA [id number] [address] [place] [address] [place] Reagin+T pallidum IgG+IgM Se rPl-Impon 05-30-2025 Reagin and Treponema pallidum IgG and IgM [Interp] Cannot exclude recent Treponemal infection if specimen collected within 7-10 days after appearance of suspect lesions or 2-3 weeks after an exposure. Clinical correlation is required. Normal [facility] Comment on above: Order Comment: Speci men Type: BLOOD SPECIMEN Ordering Facility: [facility] Address: [facility] [place] [address] Performed By: #### 5 8410-2 #### [facility] CLIA [id number] [address] [place] [address] [place] Examination level ultrasound on 04-04-2025 Indication Standard anatomic survey Impression The patient is referred for a standard anatomic survey. - Single, live, intrauterine . - biometry is consistent with the established gestational age. - No malformations were visualized on a complete standard anatomic survey. - The amniotic fluid volume is normal amount. - The placenta is anterior, fundal. - The Transabdominal cervical length measures 36.5 mm with no evidence of funneling or other dynamic changes. - Not all structural malformations can be detected by ultrasound examination. Recommendations Additional follow-up as clinically indicated. Maternal Assessment Height 168 cm Height (ft) 5 ft Height (in) 6 in Physical Exam Initial weight (lb) 156 lb Initial BMI 25.18 kg/m Maternal assessment other: 1 Para 0 REMOTE READ Method Transabdominal ultrasound examination. View: Adequate visualization Mazariegos . Number of fetuses: 1 Dating LMP on: 11/23/2024 GA by LMP 18 w + 6 d STEPHON by LMP: 08/30/2025 GA by prior assessment 18 w + 6 d STEPHON by prior assessment: 08/30/2025 Ultrasound examination on: 04/04/2025 GA by U/S based upon: AC, BPD, Femur, HC GA by U/S 19 w + 0 d STEPHON by U/S: 08/29/2025 Assigned: based on stated STEPHON, selected on 04/04/2025 Assigned GA 18 w + 6 d Assigned STEPHON: 08/30/2025 General Evaluation Cardiac activity present. FHR 152 bpm. movements: present. Presentation: cephalic Placenta: Placental site: anterior, fundal Umbilical cord: Cord vessels: 3 vessel cord Amniotic fluid: Amount of AF: normal amount. MVP 5.0 cm Growth Overview Exam date GA BPD (mm) HC (mm) AC (mm) FL (mm) HL (mm) EFW (g) 04/04/2025 18w 6d 43.4 63% 157.6 40% 137.3 56% 28.6 63% 27 41% 263 47% Biometry Standard BPD 43.4 mm 19w 1d 63% Hadlock OFD 54.4 mm 18w 1d 34% Nicolaides HC 157.6 mm 18w 4d 40% Jeevan Cerebellum tr 18.7 mm 18w 2d 16% Hill Nuchal fold 3.8 mm AC 137.3 mm 19w 1d 56% Hadlock Femur 28.6 mm 18w 6d 63% Jeevan Humerus 27.0 mm 18w 4d 41% Jeevan EFW 263 g 18w 6d 47% Hadlock EFW (lb) 0 lb EFW (oz) 9 oz EFW by: Hadlock (HC-AC-FL) Extended Events Specialist 5.7 mm CM 4.7 mm 49% Nicolaides Extremities / Bony Struc FL / HC 0.18 51% Hadlock Other Structures FHR 152 bpm Anatomy Cranium: normal Lateral ventricles: normal Choroid plexus: normal Midline falx: normal Cavum septi pellucidi: normal Cerebellum: normal Cisterna magna: normal Head / Neck Vermis: Normal but not required for a standard anatomy exam Neck: Normal but not required for a standard anatomy exam Nuchal fold: Normal but not required for a standard anatomy exam Lips: normal Profile: Normal but not required for a standard anatomy exam Nose: Normal but not required for a standard anatomy exam Face Maxilla: Normal but not required for a standard anatomy exam Mandible: Normal but not required for a standard anatomy exam Orbits: Normal but not required for a standard anatomy exam Lens: Normal but not required for a standard anatomy exam 4-chamber view: normal RVOT view: normal LVOT view: normal 3-vessel view: normal 7-momnfx-nlvwdvi view: normal Heart / Thorax Situs: situs solitus (normal) Aortic arch view: Normal but not required for a standard anatomy exam SVC: Normal but not required for a standard anatomy exam IVC: Normal but not required for a standard anatomy exam Cardiac axis: normal Rt lung: Normal but not required for a standard anatomy exam Lt lung: Normal but not required for a standard anatomy exam Diaphragm: normal Cord insertion: normal Stomach: normal Kidneys: normal Bladder: normal Genitals: normal Abdomen Abdom. wall: normal Cervical spine: normal Thoracic spine: normal Lumbar spine: normal Sacral spine: normal Arms: normal Legs: normal Rt upper arm: normal Rt forearm: normal Rt hand: normal Rt fingers: normal Lt upper arm: normal Lt forearm: normal Lt hand: normal Lt fingers: normal Rt upper leg: normal Rt lower leg: normal Rt foot: normal Lt upper leg: normal Lt lower leg: normal Lt foot: normal sex: male Wants to know sex: yes Maternal Structures Uterus / Cervix Uterus: Visualized Cervix: Visualized Approach: Transabdominal Cervical length 36.5 mm Other: Patient declined transvaginal ultrasound for cervical length. Ovaries / Tubes / Adnexa Rt ovary: Visualized Lt ovary: Visualized Performed By: Josefina Mesa RDMS, RVT Read By: Tonya Marquez M.D. MATERNAL MEDICINE [facility] Radiology Study observation (narrative) [facility] BACTERIAL VAGINOSIS NAATon 0 02-17-2025 Lactobacillus crispatus+gasseri+je nsenii + Gardnerella vaginalis + Atopobium vaginae rRNA TOMAS+probe Ql (Vag fld) Not detected Normal Not detected [facility] Comment on above: Order Comment: Speci men Type: BLOOD SPECIMEN Ordering Facility: [facility] Address: [address] [place] [address] Performed By: #### G LTGST #### [facility] CLIA [id number] [address] [place] [address] [place] PAKO/TRICHOMONAS NAATon 0 02-17-2025 C. glabrata RNA TOMAS+probe Ql (Vag fld) Not detected Normal Not detected [facility] Comment on above: Order Comment: Speci men Type: BLOOD SPECIMEN Ordering Facility: [facility] Address: [address] [place] [address] Performed By: #### G LTGST #### [facility] CLIA [id number] [address] [place] [address] STATES [facility] Pako sp DNA TOMAS+probe Ql (Vag fld) Not detected Normal Not detected [facility] Comment on above: Order Comment: Speci men Type: BLOOD SPECIMEN Ordering Facility: [facility] Address: [address] [place] [address] Result Comment: The Pako species group target includes C. albicans, C. tropicalis, C. parapsilosis, and C. dubliniensis. Performed By: #### G LTGST #### [facility] CLIA [id number] [address] [place] [address] [place] T. vaginalis DNA TOMAS+probe Ql (Unsp spec) Not detected Normal Not detected [facility] Comment on above: Order Comment: Speci men Type: BLOOD SPECIMEN Ordering Facility: [facility] Address: [address] [place] [address] Performed By: #### G LTGST #### [facility] CLIA [id number] [address] [place] [address] [place] CBC W Auto Differential pane l (Bld)on 02-17-2025 Basophils (Bld) [#/Vol] 10*3/uL Normal <0.11 [facility] Comment on above: Order Comment: Speci men Type: BLOOD SPECIMEN Ordering Facility: [facility] Address: [address] [place] [address] Performed By: #### 5 8410-2 #### [facility] CLIA [id number] [address] [place] [address] [place] Basophils/100 WBC (Bld) 0.3 % Normal [facility] Comment on above: Order Comment: Speci men Type: BLOOD SPECIMEN Ordering Facility: [facility] Address: [address] [place] [address] Performed By: #### 5 8410-2 #### [facility] CLIA [id number] [address] [place] [address] [place] Differential cell count method Nom (Bld) Auto Normal [facility] Comment on above: Order Comment: Speci men Type: BLOOD SPECIMEN Ordering Facility: [facility] Address: [facility] [place] [address] Performed By: #### 5 8410-2 #### [facility] CLIA [id number] [address] [place] [address] [place] Eosinophils (Bld) [#/Vol] 0.05 10*3/uL Normal <0.46 [facility] Comment on above: Order Comment: Speci men Type: BLOOD SPECIMEN Ordering Facility: [facility] Address: [address] [place] [address] Performed By: #### 5 8410-2 #### [facility] CLIA [id number] [address] [place] [address] [place] Eosinophils/100 WBC (Bld) 0.8 % Normal [facility] Comment on above: Order Comment: Speci men Type: BLOOD SPECIMEN Ordering Facility: [facility] Address: [address] [place] [address] Performed By: #### 5 8410-2 #### [facility] CLIA [id number] [address] [place] [address] [place] Erythrocyte distribution width (RBC) [Ratio] 12.2 % Normal 11.5-15.0 [facility] Comment on above: Order Comment: Speci men Type: BLOOD SPECIMEN Ordering Facility: [facility] Address: [address] [place] [address] Performed By: #### 5 8410-2 #### [facility] [id number] [address] [place] [address] [place] Hematocrit (Bld) [Volume fraction] 39.6 % Normal 36.0-46.0 [facility] Comment on above: Order Comment: Speci men Type: BLOOD SPECIMEN Ordering Facility: [facility] Address: [address] [place] [address] Performed By: #### 5 8410-2 #### [facility] CLIA [id number] [address] [place] [address] [place] Hemoglobin (Bld) [Mass/Vol] 13.7 g/dL Normal 11.5-15.5 [facility] Comment on above: Order Comment: Speci men Type: BLOOD SPECIMEN Ordering Facility: [facility] Address: [address] [place] [address] Performed By: #### 5 8410-2 #### [facility] CLIA [id number] [address] [place] [address] [place] Immature granulocytes (Bld) [#/Vol] 10*3/uL Normal <0.10 [facility] Comment on above: Order Comment: Speci men Type: BLOOD SPECIMEN Ordering Facility: [facility] Address: [address] [place] [address] Performed By: #### 5 8410-2 #### [facility] CLIA [id number] [address] [place] [address] [place] Immature granulocytes/100 WBC (Bld) 0.3 % Normal [facility] Comment on above: Order Comment: Speci men Type: BLOOD SPECIMEN Ordering Facility: [facility] Address: [address] [place], [place] [address] Performed By: #### 5 8410-2 #### [facility] CLIA [id number] [address] [place] [address] [place] Lymphocytes (Bld) [#/Vol] 1.17 10*3/uL Normal 1.00-4.00 [facility] Comment on above: Order Comment: Speci men Type: BLOOD SPECIMEN Ordering Facility: [facility] Address: [address] [place], [place] [address] Performed By: #### 5 8410-2 #### [facility] CLIA [id number] [address] [place] [address] [place] Lymphocytes/100 WBC (Bld) 19.3 % Normal [facility] Comment on above: Order Comment: Speci men Type: BLOOD SPECIMEN Ordering Facility: [facility] Address: [address] [place] [address] Performed By: #### 5 8410-2 #### [facility] CLIA [id number] [address] [place] [address] [place] MCH (RBC) [Entitic mass] 30.0 pg Normal 26.0-34.0 [facility] Comment on above: Order Comment: Speci men Type: BLOOD SPECIMEN Ordering Facility: [facility] Address: [address] [place] [address] Performed By: #### 5 8410-2 #### [facility] CLIA [id number] [address] [place] [address] [place] MCHC (RBC) [Mass/Vol] 34.6 g/dL Normal 30.5-36.0 [facility] Comment on above: Order Comment: Speci men Type: BLOOD SPECIMEN Ordering Facility: [facility] Address: [address] [place] [address] Performed By: #### 5 8410-2 #### [facility] CLIA [id number] [address] [place] [address] [place] MCV (RBC) [Entitic vol] 86.8 fL Normal 80.0-100.0 [facility] Comment on above: Order Comment: Speci men Type: BLOOD SPECIMEN Ordering Facility: [facility] Address: [address] [place] [address] Performed By: #### 5 8410-2 #### [facility] CLIA [id number] [address] [place] [address] [place] Monocytes (Bld) [#/Vol] 0.38 10*3/uL Normal <0.87 [facility] Comment on above: Order Comment: Speci men Type: BLOOD SPECIMEN Ordering Facility: [facility] Address: [address] [place] [address] Performed By: #### 5 8410-2 #### [facility] CLIA [id number] [address] [place] [address] [place] Monocytes/100 WBC (Bld) 6.3 % Normal [facility] Comment on above: Order Comment: Speci men Type: BLOOD SPECIMEN Ordering Facility: [facility] Address: [address] [place] [address] Performed By: #### 5 8410-2 #### [facility] CLIA [id number] [address] [place] [address] [place] Neutrophils (Bld) [#/Vol] 4.43 10*3/uL Normal 1.45-7.50 [facility] Comment on above: Order Comment: Speci men Type: BLOOD SPECIMEN Ordering Facility: [facility] Address: [address] [place] [address] Performed By: #### 5 8410-2 #### [facility] CLIA [id number] [address] [place] [address] [place] Neutrophils/100 WBC (Bld) 73.0 % Normal [facility] Comment on above: Order Comment: Speci men Type: BLOOD SPECIMEN Ordering Facility: [facility] Address: [address] [place] [address] Performed By: #### 5 8410-2 #### [facility] CLIA [id number] [address] [place] [address] [place] Nucleated RBC (Bld) [#/Vol] 10*3/uL Normal <0.01 [facility] Comment on above: Order Comment: Speci men Type: BLOOD SPECIMEN Ordering Facility: [facility] Address: [address] [place] [address] Performed By: #### 5 8410-2 #### [facility] CLIA [id number] [address] [place] [address] [place] Nucleated RBC/100 WBC (Bld) [Ratio] 0.0 /100 WBC Normal [facility] Comment on above: Order Comment: Speci men Type: BLOOD SPECIMEN Ordering Facility: [facility] Address: [address] [place] [address] Performed By: #### 5 8410-2 #### [facility] CLIA [id number] [address] [place] [address] [place] Platelet mean volume (Bld) [Entitic vol] 10.0 fL Normal 9.0-12.7 [facility] Comment on above: Order Comment: Speci men Type: BLOOD SPECIMEN Ordering Facility: [facility] Address: [address] [place] [address] Performed By: #### 5 8410-2 #### [facility] CLIA [id number] [address] [place] [address] [place] Platelets (Bld) [#/Vol] 196 10*3/uL Normal 150-400 [facility] Comment on above: Order Comment: Speci men Type: BLOOD SPECIMEN Ordering Facility: [facility] Address: [address] [place] [address] Performed By: #### 5 8410-2 #### [facility] [id number] [address] [place] [address] [place] RBC (Bld) [#/Vol] 4.56 10*6/uL Normal 3.90-5.20 [facility] Comment on above: Order Comment: Speci men Type: BLOOD SPECIMEN Ordering Facility: [facility] Address: [address] [place] [address] Performed By: #### 5 8410-2 #### [facility] CLIA [id number] [address] [place] [address] [place] WBC (Bld) [#/Vol] 6.07 10*3/uL Normal 3.70-11.00 [facility] Comment on above: Order Comment: Speci men Type: BLOOD SPECIMEN Ordering Facility: [facility] Address: [address] [place] [address] Performed By: #### 5 8410-2 #### [facility] CLIA [id number] [address] [id number] [place] [facility] Examination level ultrasound on 02-17-2025 Indication First trimester anatomic survey Impression The patient is referred for a first trimester anatomy scan including nuchal translucency measurement as clinically indicated. - Single, live, intrauterine . - [place] rump length measurement is consistent with the established gestational age. - A qualitative screen of the nuchal translucency and other anatomic structures was unremarkable on a complete first trimester anatomic assessment. - Not all structural malformations can be detected by ultrasound examination. Maternal Structures: Right Ovary: Size 31 mm x 19 mm x 14 mm Left Ovary: Size 29 mm x 36 mm x 17 mm Recommendations Return for anatomy ultrasound Maternal Assessment Height 168 cm Height (ft) 5 ft Height (in) 6 in Physical Exam Initial weight (lb) 156 lb Initial BMI 25.18 kg/m Maternal assessment other: 1 Para 0 REMOTE READ Method Transabdominal ultrasound examination Mazariegos . Number of fetuses: 1 Dating LMP on: 11/23/2024 GA by LMP 12 w + 2 d STEPHON by LMP: 08/30/2025 GA by prior assessment 12 w + 2 d STEPHON by prior assessment: 08/30/2025 Ultrasound examination on: 02/17/2025 GA by U/S based upon: CRL GA by U/S 11 w + 6 d STEPHON by U/S: 09/02/2025 Assigned: based on stated STEPHON, selected on 02/17/2025 Assigned GA 12 w + 2 d Assigned STEPHON: 08/30/2025 General Evaluation Cardiac activity present Placenta: posterior Cord vessels: 3 vessel cord Amniotic fluid: normal amount Biometry Standard FHR 160 bpm CRL 51.1 mm 11w 6d 8% [facility] First Trimester Anatomy Calvarium: normal Falx cerebri: normal Choroid plexus: normal Profile: normal Nasal bone: normal Retronasal triangle: normal Maxilla: normal Mandible: normal Nuchal translucency: Unremarkable Situs: normal Cardiac position: normal Cardiac axis: normal 4-chamber view: normal 4-chamber view with color: normal [id number] view: normal Abdominal cord insertion: normal Stomach: normal Kidneys: suboptimal Bladder: normal Color doppler of perivesical umbilical arteries: normal Vertebral alignment: suboptimal Arms: normal Hands: normal Legs: normal Feet: normal Maternal Structures Uterus / Cervix Uterus: Visualized Uterus length 112 mm Uterus width 84 mm Uterus height 76 mm Uterus Vol 375.5 cm Ovaries / Tubes / Adnexa Rt ovary: Visualized Rt ovary D1 31 mm Rt ovary D2 19 mm Rt ovary D3 14 mm Rt ovary Vol 4.3 cm Lt ovary: Visualized Lt ovary D1 29 mm Lt ovary D2 36 mm Lt ovary D3 17 mm Lt ovary Vol 9.0 cm Performed By: Josefina Mesa RDMS, RVT Read By: Tonya Marquez M.D. MATERNAL MEDICINE [facility] Radiology Study observation (narrative) [facility] HBV surface Ag Ser [facility] 02-02 HBV surface Ag Ql (S) Negative Normal Negative [facility] Comment on above: Order Comment: Speci men Type: BLOOD SPECIMEN Ordering Facility: [facility] Address: [address] [place] [address] Performed By: #### G LTGST #### [facility] CLIA [id number] [address] [place] [address] [place] HCV Ab Ser Qlon 02-17-2025 HCV Ab Ql (S) Negative Normal Negative [facility] Comment on above: Order Comment: Speci men Type: FLUID SPECIMEN Ordering Facility: [facility] Address: [address] [place] [address] Result Comment: The result suggests no evidence of infection with Hepatitis C virus. Should recent infection be suspected, repeat testing may be considered 4-6 weeks after this draw. Performed By: #### L [id number] #### [facility] CLIA [id number] [address] [place] [address] [place] HIV 1+2 Ab IA Qlon HIV 1 and 2 Ab IA.rapid Nom (S/P/Bld) Normal [facility] Comment on above: Order Comment: Speci men Type: BLOOD SPECIMEN Ordering Facility: [facility] Address: [address] [place] [address] Result Comment: Test not indicated. Performed By: #### G LTGST #### [facility] CLIA [id number] [address] [place] [address] [place] HIV 1+2 Ab+HIV1 p24 Ag IA Ql Non-Reactive Normal Nonreactive [facility] Comment on above: Order Comment: Speci men Type: BLOOD SPECIMEN Ordering Facility: [facility] Address: [address] [place] [address] Performed By: #### G LTGST #### [facility] [id number] [address] [place] [address] [place] HIV immunoassay testing algorithm interpretation (S/P/Bld) [Interp] Normal [facility] Comment on above: Order Comment: Speci men Type: BLOOD SPECIMEN Ordering Facility: [facility] Address: [address] [place] [address] Result Comment: No e vidence of HIV-1 or HIV-2 infection. Should recent infection be suspected, repeat testing may be considered 2-3 weeks after this draw. [place] Rev. Code 3701.243(E): This information has been disclosed to you from confidential records protected from disclosure by state law. You shall make no further disclosure of this information without the specific, written, and informed release of the individual to whom it pertains or as otherwise permitted by state law. A general authorization for the release of medical or other information is not sufficient for the purpose of the release of HIV test results or diagnoses. Performed By: #### G LTGST #### [facility] [id number] [address] [place] [address] [place] HbA1c (Bld)on 02-17-2025 Average glucose Estimated from glycated hemoglobin (Bld) [Mass/Vol] 85 mg/dL Normal [facility] Comment on above: Order Comment: Speci men Type: BLOOD SPECIMEN Ordering Facility: [facility] Address: [address] [place] [address] Result Comment: eAG: (Estimated average glucose) is a calculated value from HgbA1c and is appliance service representative of the average blood glucose level in the last 2-3 month period. Performed By: #### 5 8410-2 #### [facility] [id number] [address] [place] [address] [place] HbA1c (Bld) [Mass fraction] 4.6 % Normal 4.3-5.6 [facility] Comment on above: Order Comment: Speci men Type: BLOOD SPECIMEN Ordering Facility: [facility] Address: [address] [place] [address] Result Comment: Amer ican Diabetes Association guidelines indicate that patients with HgbA1c in the range 5.7-6.4% are at increased risk for development of diabetes, and intervention by lifestyle modification may be beneficial. HgbA1c greater or equal to 6.5% is considered diagnostic of diabetes. Performed By: #### 5 8410-2 #### [facility] [id number] [address] [place] [address] [place] [id number] PLUSon 02-17-2025 Cell-free DNA./Cell-free DNA.total Dosage of chromosome-specific cfDNA (cfDNA) [Molar fraction] 18% Normal [facility] Comment on above: Order Comment: Speci men Type: BLOOD SPECIMEN Ordering Facility: [facility] Address: [address] [place] [address] Performed By: #### G LTGST #### [facility] [id number] [address] [place] [address] [place] Chr 13+18+21+X+Y aneuploidy Dosage of chromosome-specific cfDNA Ql (cfDNA) Negative Normal [facility] Comment on above: Order Comment: Speci men Type: BLOOD SPECIMEN Ordering Facility: [facility] Address: [address] [place] [address] Performed By: #### G LTGST #### [facility] CLIA [id number] [address] [place] [address] [place] Chr 21 trisomy Dosage of chromosome-specific cfDNA Ql (cfDNA) Negative Normal [facility] Comment on above: Order Comment: Eric fierro Type: BLOOD SPECIMEN Ordering Facility: [facility] Address: [address] [place] [address] Performed By: #### G LTGST #### [facility] CLIA [id number] [address] [place] [address] [place] Chr X and Y aneuploidy risk Sequencing Ql (cfDNA) [Interp] Not detected Normal [facility] Comment on above: Order Comment: Eric fierro Type: BLOOD SPECIMEN Ordering Facility: [facility] Address: [address] [place] [address] Result Comment: Not Detected Not Detected Performed By: #### G LTGST #### [facility] CLIA [id number] [address] [place] [address] [place] Citation Dustin (Reference lab test) Comment Normal [facility] Comment on above: Order Comment: Eric fierro Type: BLOOD SPECIMEN Ordering Facility: [facility] Address: [address] [place] [address] Result Comment: 1. P aislinn BEAULIEU et al. Jennifer Med. 2012;14(3):296-305. 2. Ronnie RAPP, et al. Prenat Diag. 2013;33(6):591-597. 3. Cristhian C, et al. Clin Chem. 2015 Apr;61(4):608-616. 4. Earlene BEAULIEU, et al. Jennifer Med. 2011;13(11):913-920. 5. ACOG/SMFM Practice Bulletin No. 226, Jul 2020. Performed By: #### G LTGST #### [facility] CLIA [id number] [address] [place] [address] [place] Gestational age Estimated from conception date Mazariegos Normal [facility] Comment on above: Order Comment: Eric fierro Type: BLOOD SPECIMEN Ordering Facility: [facility] Address: [address] [place] [address] Performed By: #### G LTGST #### [facility] CLIA [id number] [address] [place] [address] STATES [facility] GESTATIONALAGE AGE > OR = 9W Yes Normal [facility] Comment on above: Order Comment: Eric fierro Type: BLOOD SPECIMEN Ordering Facility: [facility] Address: [address] [place] [address] Performed By: #### G LTGST #### [facility] CLIA [id number] [address] [place] [address] OF [facility] Laboratory comment Dustin (Report) Comment Normal [facility] Comment on above: Order Comment: Eric fierro Type: BLOOD SPECIMEN Ordering Facility: [facility] Address: [address] [place] [address] Result Comment: The MaterniT(R) 21 PLUS laboratory-developed test (LDT) analyzes circulating cell-free DNA from a maternal blood sample. This test is used for screening purposes and not diagnostic. Clinical correlation is recommended. Validation data on twin pregnancies is limited and the ability of this test to detect aneuploidy in higher multiple gestations has not yet been validated. Performed By: #### G LTGST #### [facility] CLIA [id number] [address] [place] [address] director regulatory compliance name Nom (Provider) Comment Normal [facility] Comment on above: Order Comment: Eric fierro Type: BLOOD SPECIMEN Ordering Facility: [facility] Address: [address] [place] [address] Result Comment: This specimen showed an expected representation of chromosome 21, 18 and 13 material. Clinical correlation is suggested. Comment Osmin Colby MD, PhD, Director, [employer] Performed By: #### G LTGST #### [facility] CLIA [id number] [address] [place] [address] LIMITATIONS OF THE TEST Comment Normal [facility] Comment on above: Order Comment: Eric fierro Type: BLOOD SPECIMEN Ordering Facility: [facility] Address: [address] [place] [address] Result Comment: Clifton becerra the results of these tests are highly reliable, discordant results, including inaccurate sex prediction, may occur due to placental, maternal, or mosaicism or neoplasm; vanishing twin; prior maternal organ transplant; or other causes. These tests are screening tests and not diagnostic; they do not replace the accuracy and precision of diagnosis with CVS or amniocentesis. A patient with a positive test result should be referred for genetic counseling and offered invasive diagnosis for confirmation of test results.[5] The results of this testing, including the benefits and limitations, should be discussed with a qualified healthcare provider. management decisions, including termination of the , should not be based on the results of these tests alone. The healthcare provider is responsible for the use of this information in the management of their patient. Sex chromosomal aneuploidies are not reportable for known multiple gestations. A negative result does not ensure an unaffected nor does it exclude the possibility of other chromosomal abnormalities or defects which are not a part of these tests. An uninformative result may be reported, the causes of which may include, but are not limited to, insufficient sequencing coverage, noise or artifacts in the region, amplification or sequencing bias, or insufficient fraction. These tests are not intended to identify pregnancies at risk for neural tube defects or ventral wall defects. Testing for whole chromosome abnormalities (including sex chromosomes) and for subchromosomal abnormalities could lead to the potential discovery of both and maternal genomic abnormalities that could have major, minor, or no, clinical significance. Evaluating the significance of a positive or a non-reportable result may involve both invasive testing and additional studies on the mother. Such investigations may lead to a diagnosis of maternal chromosomal or subchromosomal abnormalities, which on occasion may be associated with benign or malignant maternal neoplasms. These tests may not accurately identify triploidy, balanced rearrangements, or the precise location of subchromosomal duplications or deletions; these may be detected by diagnosis with CVS or amniocentesis. The ability to report results may be impacted by maternal BMI, maternal weight, maternal systemic lupus erythematosus (SLE) and/or by certain pharmaceutical agents such as low molecular weight heparin (for example: Lovenox(R), Xaparin(R), Clexane(R) and Fragmin(R)). Performed By: #### G LTGST #### [facility] CLIA [id number] [address] [place] [address] STATES [facility] Monosomy X risk Dosage of chromosome-specific cfDNA Ql (Plasma cell-free+WBC DNA) [Interp] Not detected Normal [facility] Comment on above: Order Comment: Eric fierro Type: BLOOD SPECIMEN Ordering Facility: [facility] Address: [address] [place] [address] Performed By: #### G LTGST #### [facility] [id number] [address] [place] [address] NEGATIVE PREDICTIVE VALUE Note Normal [facility] Comment on above: Order Comment: Eric fierro Type: BLOOD SPECIMEN Ordering Facility: [facility] Address: [address] [place] [address] Result Comment: The Negative Predictive Value (NPV) for trisomy 21, 18, and 13 is greater than 99%. The NPV for SCA and ESS cannot be calculated as SCA and ESS are only reported when an abnormality is detected. Performed By: #### G LTGST #### [facility] [id number] [address] [place] [address] PERFORMANCE CHARACTERISTICS Note Normal [facility] Comment on above: Order Comment: Eric fierro Type: BLOOD SPECIMEN Ordering Facility: [facility] Address: [address] [place] [address] Result Comment: ! Sex ! Accuracy: 99.4% ! ! ! ! Region (associated syndrome) ! Est. Sens# ! Est. Spec ! ! ! ! Trisomy 21 (Down Syndrome) ! 99.1% ! 99.9% ! ! ! ! Trisomy 18 (Landa Syndrome) ! >99.9% ! 99.6% ! ! ! ! Trisomy 13 ([place] Syndrome) ! 91.7% ! 99.7% ! ! ! ! Sex Chromosome Aneuploidies## ! 96.2% ! 99.7% ! ! ! * As reported in ISCA database nstd37 [https://www.ncbi.nlm.nih.gov/dbvar/studies/nstd37/ ] # Estimated Sensitivity. Sensitivity estimated across the observed size distribution of each syndrome [per ISCA database nstd37] and across the range of fractions observed in routine clinical NIPT. Actual sensitivity can also be influenced by other factors such as the size of the event, total sequence counts, amplification bias, or sequence bias. ## Mazariegos gestation only. Performed By: #### G LTGST #### [facility] CLIA [id number] [address] [place] [address] [place] POSITIVE PREDICTIVE VALUE N/A Normal [facility] Comment on above: Order Comment: Speci men Type: BLOOD SPECIMEN Ordering Facility: [facility] Address: [address] [place] [address] Performed By: #### G LTGST #### [facility] CLIA [id number] [address] [place] [address] [place] Reference Lab Test Method Comment Normal [facility] Comment on above: Order Comment: Speci men Type: BLOOD SPECIMEN Ordering Facility: [facility] Address: [address] [place] [address] Result Comment: See Notes Circulating cell-free DNA was purified from the plasma component of maternal blood. The extracted DNA was then converted into a genomic DNA library for aneuploidy analysis of chromosomes 21, 18, and 13 via next generation sequencing.[1] Optional findings based on the test order include sex chromosome aneuploidy (SCA)[2], and enhanced sequencing series (ESS)[3], which will only be reported on as an additional finding when an abnormality is detected. SCA testing includes information on X and Y representation, while ESS testing includes deletions in selected regions (22q, 15q, 11q, 8q, 5p, 4p, 1p) and trisomy of chromosomes 16 and 22. Performed By: #### G LTGST #### [facility] CLIA [id number] [address] [place] [address] [place] Service comment (Unsp spec) [Interp] Comment Normal [facility] Comment on above: Order Comment: Speci men Type: BLOOD SPECIMEN Ordering Facility: [facility] Address: [address] [place] [address] Result Comment: See Notes [employer] is a subsidiary of [employer], using the brand [employer]. This test was developed and its performance characteristics determined by [employer]. It has not been cleared or approved by the Food and Drug Administration. This laboratory is certified under the Clinical Laboratory Improvement Amendments (CLIA) as qualified to perform high complexity clinical laboratory testing and accredited by the [employer] ([employer]). If there is future clinical need for adding MaterniT GENOME testing, this specimen will be available until term. [facility] samples will not be retained beyond 60 days. [facility] patients will have to send a new sample for re-sequencing ([facility] Test Code: 380916). Performed By: #### G LTGST #### [facility] CLIA [id number] [address] [place] [address] [place] Sex Dosage of chromosome-specific cfDNA Nom (cfDNA) Comment Normal [facility] Comment on above: Order Comment: Speci men Type: BLOOD SPECIMEN Ordering Facility: [facility] Address: [address] [place] [address] Result Comment: Cons istent with Male Performed By: #### G LTGST #### [facility] [id number] [address] [place] [address] [place] Test performance information Dustin (Unsp spec) Comment Normal [facility] Comment on above: Order Comment: Speci men Type: BLOOD SPECIMEN Ordering Facility: [facility] Address: [address] [place] [address] Result Comment: The performance characteristics of the MaterniT(R) 21 PLUS laboratory-developed test (LDT) have been determined in a clinical validation study with women at increased risk for chromosomal aneuploidy.[1-4] Performed By: #### G LTGST #### [facility] [id number] [address] [place] [address] [place] Trisomy 13 risk Dosage of chromosome-specific cfDNA Ql (cfDNA) [Interp] Negative Normal [facility] Comment on above: Order Comment: Speci men Type: BLOOD SPECIMEN Ordering Facility: [facility] Address: [address] [place] [address] Performed By: #### G LTGST #### [facility] CLIA [id number] [address] [place] [address] [place] Trisomy 18 risk Dosage of chromosome-specific cfDNA Ql (Plasma cell-free+WBC DNA) [Interp] Negative Normal [facility] Comment on above: Order Comment: Eric fierro Type: BLOOD SPECIMEN Ordering Facility: [facility] Address: [address] [place] [address] Performed By: #### G LTGST #### [facility] CLIA [id number] [address] [place] [address] [place] RUBELLA IGG ANTIBODYon 02-17 RUBELLA IGG AB, QUAL Positive Normal Positive [facility] Comment on above: Order Comment: Eric fierro Type: BLOOD SPECIMEN Ordering Facility: [facility] Address: [address] [place] [address] Result Comment: The result suggests recent or past exposure to Rubella virus or history of Rubella vaccination. Positive result may also be seen due to presence of passively-transferred antibodies. Please correlate with patient's history. Performed By: #### 5 8410-2 #### [facility] CLIA [id number] [address] [place] [address] [place] Reagin and Treponema pallidu m IgG and IgM [Interp]on 02-17-2025 T. pallidum IgG+IgM IA Ql (S) Non-Reactive Normal Nonreactive [facility] Comment on above: Order Comment: Shielai sri Type: BLOOD SPECIMEN Ordering Facility: [facility] Address: [address] [place] [address] Performed By: #### G LTGST #### [facility] CLIA [id number] [address] [place] [address] [place] Reagin+T pallidum IgG+IgM Se rPl-Impon 02-17-2025 Reagin and Treponema pallidum IgG and IgM [Interp] Cannot exclude recent Treponemal infection if specimen collected within 7-10 days after appearance of suspect lesions or 2-3 weeks after an exposure. Clinical correlation is required. Normal [facility] Comment on above: Order Comment: Speci men Type: BLOOD SPECIMEN Ordering Facility: [facility] Address: [address] [place] [address] Performed By: #### G LTGST #### [facility] CLIA [id number] 1 [place] [address] [place] TYPE + SCREEN PRENATALon ABO A Normal [facility] Comment on above: Order Comment: Speci men Type: BLOOD SPECIMEN Ordering Facility: [facility] Address: [address] [place] [address] Performed By: #### T SPN #### [facility] CLIA [id number] [address] [place] [address] [place] Rh Nom (Bld) Positive Normal [facility] Comment on above: Order Comment: Speci men Type: BLOOD SPECIMEN Ordering Facility: [facility] Address: [address] [place] [address] Performed By: #### T SPN #### [facility] CLIA [id number] [address] [place] [address] [place] TYPE AND SCREEN EXPIRATION 02/20/2025 23:59 Normal [facility] Comment on above: Order Comment: Speci men Type: BLOOD SPECIMEN Ordering Facility: [facility] Address: [address] [place] [address] Performed By: #### T SPN #### [facility] CLIA [id number] [address] [place] [address] [place] Bacteria Ur Culton 5 Bacteria identified Cx Nom (U) ORGANISM ID: 1 10,000 -<50,000 CFU/ml Normal urogenital em Normal [facility] Comment on above: Performed By: #### G LTGST #### [facility] CLIA [id number] [address] [place] [address] [place] C. trachomatis+N. gonorrhoea e DNA TOMAS+probe Ql (Unsp spec)on 01-18-2025 C. trachomatis rRNA TOMAS+probe Ql (Unsp spec) Not detected Normal Not detected [facility] Comment on above: Order Comment: Speci men Type: BLOOD SPECIMEN Ordering Facility: [facility] Address: [address] [place] [address] Performed By: #### 5 8410-2 #### [facility] CLIA [id number] [address] [place] [address] [place] N. gonorrhoeae rRNA TOMAS+probe Ql (Unsp spec) Not detected Normal Not detected [facility] Comment on above: Order Comment: Speci men Type: BLOOD SPECIMEN Ordering Facility: [facility] Address: [address] [place] [address] Performed By: #### 5 8410-2 #### [facility] CLIA [id number] [address] [place] [address] [place] HIGH RISK HUMAN PAPILLOMA RONALD (HPV), PCR FOR DETECTION AND GENOTYPINGon 01-18-2025 HPV 16 Ag Ql (Unsp spec) Not detected Normal Not detected [facility] Comment on above: Order Comment: Speci men Type: BLOOD SPECIMEN Ordering Facility: [facility] Address: [address] [place] [address] Performed By: #### 5 8410-2 #### [facility] CLIA [id number] [address] [place] [address] [place] HPV 18 Ag Ql (Unsp spec) Not detected Normal Not detected [facility] Comment on above: Order Comment: Speci men Type: BLOOD SPECIMEN Ordering Facility: [facility] Address: [address] [place] [address] Performed By: #### 5 8410-2 #### [facility] CLIA [id number] [address] [place] [address] [place] HPV 31+33+35+39+45+51+52 +56+58+59+66+68 DNA TOMAS+probe Ql (Cvx) Not detected Normal Not detected [facility] Comment on above: Order Comment: Speci men Type: BLOOD SPECIMEN Ordering Facility: [facility] Address: [address] [place] [address] Result Comment: High Risk HPV Other Type includes HPV types 31, 33, 35, 39, 45, 51, 52, 56, 58, 59, 66 and 68. Performed By: #### 5 8410-2 #### [facility] CLIA [id number] [address] [place] [address] [place] PAP TESTon 01-18-2025 ADEQUACY Normal [facility] Comment on above: Order Comment: Speci men Type: FLUID SPECIMEN Ordering Facility: [facility] Address: [address] [place] [address] Result Comment: Sati sfactory for interpretation. No endocervical component Performed By: #### L [id number] #### [facility] CLIA [id number] [address] [place] [address] [place] CASE REPORT Normal [facility] Comment on above: Order Comment: Speci men Type: FLUID SPECIMEN Ordering Facility: [facility] Address: [address] [place] [address] Result Comment: Gyne cologic Cytology Report Case: [id number] Authorizing Provider: Lalita Moncada APRN.CNM Collected: 01/18/2025 01:57 PM Ordering Location: OB/Gynecology Received: 01/19/2025 08:19 AM First Screen: Gmitro, Armaan, CT, ASCP Specimen: Pap Test, ThinPrep, Cervix Performed By: #### L [id number] #### [facility] CLIA [id number] [address] [place] [address] [place] CLINICAL HISTORY, CYTOLOGY, DYNAMITE PACKING MACHINE FEEDER Routine Exam Normal [facility] Comment on above: Order Comment: Speci men Type: FLUID SPECIMEN Ordering Facility: [facility] Address: [address] [place] [address] Performed By: #### L [id number] #### [facility] CLIA [id number] [address] [place], [place] [address] [place] FINAL PERFORMING LAB Normal [facility] Comment on above: Order Comment: Speci men Type: FLUID SPECIMEN Ordering Facility: [facility] Address: [address] [place] [address] Result Comment: Tech nical component, sugarcane research technician screening performed at [facility], [address] [place] [address] [place] [address] CLIA# [id number] Diagnostic interpretation performed at [facility], [address] [place], [place] [id number] CLIA# [id number] Nuclear Unit Operator: Joaquim Ramos M.D. Performed By: #### L [id number] #### [facility] CLIA [id number] [address] [place] [address] [place] INTERPRETATION, CYTOLOGY, DYNAMITE PACKING MACHINE FEEDER Normal [facility] Comment on above: Order Comment: Speci men Type: FLUID SPECIMEN Ordering Facility: [facility] Address: [address] [place] [address] Result Comment: Nega tive for intraepithelial lesion or malignancy. at 1018 EDT Performed By: #### L [id number] #### [facility] CLIA [id number] [address] [place], [place] [address] [place] LMP 11/23/2024 Normal [facility] Comment on above: Order Comment: Speci men Type: FLUID SPECIMEN Ordering Facility: [facility] Address: [address] [place] [address] Performed By: #### L [id number] #### [facility] CLIA [id number] [address] [place], [place] [id number] [place] PAP DISCLAIMER COMMENT The Pap Smear is a screening test for cervical cancer. False negative results occur with all screening tests, emphasizing the need for rescreening at recommended intervals, and clinical correlation. Normal [facility] Comment on above: Order Comment: Speci men Type: FLUID SPECIMEN Ordering Facility: [facility] Address: [address] [place] [address] Performed By: #### L [id number] #### [facility] CLIA [id number] [address] [place] [address] [place] PAP CANOPY INSPECTOR COMMENT This specimen has be en analyzed by the ThinPrep Imaging System, an automated imaging and review system, which assists the laboratory in evaluating cells on ThinPrep Pap tests. Following automated imaging, selected zamorano from every slide are reviewed by a sugarcane research technician. Normal [facility] Comment on above: Order Comment: Speci men Type: FLUID SPECIMEN Ordering Facility: [facility] Address: [address] [place] [address] Performed By: #### L [id number] #### [facility] CLIA [id number] [address] [place] [address] [place] TRICHOMONAS VAGINALIS NAATon 01-18-2025 T. vaginalis DNA TOMAS+probe Ql (Unsp spec) Not detected Normal Not detected [facility] Comment on above: Order Comment: Speci men Type: BLOOD SPECIMEN Ordering Facility: [facility] Address: [address] [place] [address] Performed By: #### 5 8410-2 #### [facility] CLIA [id number] [address] [place] [address] [place] Vital Signs Date Time Vital Sign Value Performing Clinician Faci lity 06-19-2025 10:43-0400 Body mass index (BMI) [Ratio] 28.6 kg/m2 Vida Nunn MD Work Phone: [facility] 06-19-2025 10:43-0400 Body weight 81.19 kg Vida Nunn MD Work Phone: [facility] 06-19-2025 10:43-0400 Diastolic blood pressure 72 mm[Hg] Vida Nunn MD Work Phone: [facility] 06-19-2025 10:43-0400 Systolic blood pressure 124 mm[Hg] Vida Nunn MD Work Phone: [facility] 05-30-2025 10:57-0400 Body mass index (BMI) [Ratio] 28.21 kg/m2 Yon Carrero MD Work Phone: [facility] 05-30-2025 10:57-0400 Body weight 80.11 kg Yon Carrero MD Work Phone: [facility] 05-30-2025 10:57-0400 Diastolic blood pressure 74 mm[Hg] Yon Carrero MD Work Phone: [facility] 05-30-2025 10:57-0400 Systolic blood pressure 120 mm[Hg] Yon Carrero MD Work Phone: [facility] 05-16-2025 11:10-0400 Body mass index (BMI) [Ratio] 27.64 kg/m2 Yon Carrero MD Work Phone: [facility] 05-16-2025 11:10-0400 Body weight 78.47 kg Yon Carrero MD Work Phone: [facility] 05-16-2025 11:10-0400 Diastolic blood pressure 70 mm[Hg] Yon Carrero MD Work Phone: [facility] 05-16-2025 11:10-0400 Systolic blood pressure 106 mm[Hg] Yon Carrero MD Work Phone: [facility] 04-04-2025 13:57-0400 Body mass index (BMI) [Ratio] 26.36 kg/m2 Yon Carrero MD Work Phone: [facility] 04-04-2025 13:57-0400 Body weight 74.84 kg Yon Carrero MD Work Phone: [facility] 04-04-2025 13:57-0400 Diastolic blood pressure 70 mm[Hg] Yon Carrero MD Work Phone: [facility] 04-04-2025 13:57-0400 Systolic blood pressure 114 mm[Hg] Yon Carrero MD Work Phone: [facility] 03-17-2025 12:56-0400 Body mass index (BMI) [Ratio] 25.82 kg/m2 Jina Escalera MD Work Phone: [facility] 03-17-2025 12:56-0400 Body weight 73.3 kg Jina Escalera MD Work Phone: [facility] 03-17-2025 12:56-0400 Diastolic blood pressure 80 mm[Hg] Jina Escalera MD Work Phone: [facility] 03-17-2025 12:56-0400 Systolic blood pressure 120 mm[Hg] Jina Escalera MD Work Phone: [facility] 02-17-2025 11:43-0400 Body mass index (BMI) [Ratio] 25.24 kg/m2 Patsy Sapp MD Work Phone: [facility] 02-17-2025 11:43-0400 Body weight 71.67 kg Patsy Sapp MD Work Phone: [facility] 02-17-2025 11:43-0400 Diastolic blood pressure 68 mm[Hg] Patsy Sapp MD Work Phone: [facility] 02-17-2025 11:43-0400 Systolic blood pressure 100 mm[Hg] Patsy Sapp MD Work Phone: [facility] 01-18-2025 13:03-0400 Body height 168.5 cm Lalita Moncada SPLINE ROLLING MACHINE JOB SETTER.CNM Work Phone: [facility] 01-18-2025 13:03-0400 Body mass index (BMI) [Ratio] 25.02 kg/m2 Lalita Moncada SPLINE ROLLING MACHINE JOB SETTER.CNM Work Phone: [facility] 01-18-2025 13:03-0400 Body weight 71.03 kg Lalita Moncada SPLINE ROLLING MACHINE JOB SETTER.CNM Work Phone: [facility] 01-18-2025 13:03-0400 Diastolic blood pressure 62 mm[Hg] Lalita Moncada SPLINE ROLLING MACHINE JOB SETTER.CNM Work Phone: [facility] 01-18-2025 13:030400 Systolic blood pressure 118 mm[Hg] Lalita Moncada SPLINE ROLLING MACHINE JOB SETTER.CNM Work Phone: [facility] Encounters Encounter Date Encounter Type Care Provider Facility Start: 08-30-2025 ambulatory Yon Carrero Facility:[facility] Start: 08-16-2025 End: 08-16-2025 ambulatory WESTLEY JOSE Facility:[facility] Start: 08-10-2025 End: 08-10-2025 ambulatory PINA CHINO Facility:[facility] Start: 08-10-2025 End: 08-10-2025 ambulatory PINA CHINO Facility:[facility] Start: 08-09-2025 End: 08-09-2025 ambulatory LALITA MONCADA Facility:[facility] Start: 08-03-2025 End: 08-03-2025 ambulatory PATSY SAPP Facility:[facility] Start: 07-20-2025 End: 07-20-2025 ambulatory PINA CHINO Facility:[facility] Start: 07-19-2025 End: 07-19-2025 ambulatory VIDA NUNN Facility:[facility] Start: 07-05-2025 End: 07-05-2025 ambulatory PINA CHINO Facility:[facility] Start: 07-05-2025 End: 07-05-2025 ambulatory PINA CHINO Facility:[facility] Start: 06-19-2025 End: 06-19-2025 Patient encounter procedure Vida Nunn MD Work Phone: OB/Gynecology Comment on above: Encounter for superv ision of low-risk first in second trimester (HCC) (Primary Dx); 29 weeks gestation of (HCC); Encounter for supervision of normal first in third trimester (HCC); Need for ehzabqokmc-rqrdddq-mvneslvhh (Tdap) vaccine; Encounter for supervision of low-risk first in first trimester (HCC); Need for vaccination Start: 06-19-2025 End: 06-19-2025 ambulatory VIDA NUNN Facility:[facility] Start: 05-30-2025 End: 05-30-2025 Patient encounter procedure Yon Carerro MD Work Phone: OB/Gynecology Comment on above: 26 weeks gestation o f (HCC) (Primary Dx); Encounter for supervision of low-risk first in second trimester (HCC) Start: 05-30-2025 End: 05-30-2025 ambulatory SELF Facility:[facility] Start: 05-16-2025 End: 05-16-2025 Patient encounter procedure Yon Carrero MD Work Phone: OB/Gynecology Comment on above: Screening for diabet es mellitus (Primary Dx); 24 weeks gestation of (HCC); Encounter for supervision of low-risk first in second trimester (HCC); Arthralgia of both hands; Rash Start: 05-16-2025 End: 05-16-2025 ambulatory YON CARRERO Facility:[facility] Start: 04-04-2025 End: 04-04-2025 Patient encounter procedure 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[employer] [facility] Comment on above: Encounter for anatomic survey (HCC) (Primary Dx); 18 weeks gestation of (HCC) Encounter for superv ision of low-risk first in second trimester (HCC) (Primary Dx); 18 weeks gestation of (HCC); Constipation, unspecified constipation type Start: 04-04-2025 End: 04-04-2025 ambulatory YON CARRERO Facility:[facility] Start: 03-17-2025 End: 03-17-2025 Patient encounter procedure Jina Escalera MD Work Phone: OB/Gynecology Comment on above: 16 weeks gestation o f (HCC) (Primary Dx); Encounter for supervision of low-risk first in second trimester (HCC) Start: 03-17-2025 End: 03-17-2025 ambulatory JINA ESCALERA Facility:[facility] Start: 02-18-2025 End: 02-21-2025 Follow-up encounter Patsy Sapp MD Work Phone: OB/Gynecology Start: 02-17-2025 End: 02-17-2025 ambulatory LALITA MONCADA Facility:[facility] Start: 02-17-2025 End: 02-17-2025 Patient encounter procedure Patsy Sapp MD Work Phone: OB/Gynecology Comment on above: care, first in first trimester ([facility]) (Primary Dx); 12 weeks gestation of ([facility]); Oral herpes; Vaginal yeast infection Encounter for adela perry screening for malformation using ultrasound ([facility]) (Primary Dx); 12 weeks gestation of ([facility]) Start: 02-17-2025 End: 02-17-2025 ambulatory PATSY SAPP Facility:[facility] Start: 01-26-2025 End: 03-28-2025 Follow-up encounter Lalita Moncada APRN.CNM Work Phone: OB/Gynecology Start: 01-18-2025 End: 01-18-2025 Patient encounter procedure Lalita Moncada APRN.CNM Work Phone: OB/Gynecology Comment on above: with uncer tain dates in first trimester ([facility]) (Primary Dx); care, first in first trimester ([facility]); Screen for STD (sexually transmitted disease); Screening for cervical cancer; Special screening examination for human papillomavirus (HPV); Nausea; Encounter for supervision of low-risk first in first trimester ([facility]); Heart valve disorder Start: 01-18-2025 End: 01-18-2025 ambulatory LALITA MONCADA Facility:[facility] Procedures Date Procedure Procedure Detail Performing Clinician Start: 04-04-2025 Us preg uterus after 1st trimest 10/05 gestation Lalita Moncada APRN.CNM Work Phone: Start: 02-17-2025 Antibody screen PATSY BAUTISTA Comment on above: Order Comment: Speci men Type: BLOOD SPECIMEN Ordering Facility: [facility] Address: [address] [place] [address] Performed By: #### T SPN #### [facility] CLIA [id number] [address] [place] [address] [place] [address] [place] Start: 02-17-2025 Us preg uterus after 1st trimest 10/05 gestation Lalita Moncada APRN.AMELIE Work Phone: Plan of Treatment Date Care Activity Detail Author Start: 01-02-2067 RSV Vaccine (1 - 1-dose 75+ series) RSV Vaccine (1 - 1-dose 75+ series) [facility] Start: 06-19-2035 Urine microalbumin profile DTaP,Tdap,Td Vaccine (2 - Td or Tdap) [facility] Start: 01-18-2030 Screening for malignant neoplasm of cervix Cervical Cancer Screening [facility] Start: 07-19-2025 End: 07-19-2025 Patient encounter procedure 07/19/2025 11:20 AM EDT Routine Office Visit OB/Gynecology [address] [place] [address] Vida Nunn MD [address] [place], [place] [id number] OB OB/Gynecology Comment on above: OB Start: 07-05-2025 RSV Vaccine (1 - Ris k 1-dose series) RSV Vaccine (1 - Risk 1-dose series) [facility] Start: 07-05-2025 End: 07-05-2025 Patient encounter procedure Rheumatology Comment on above: Arthralgia of both h ands [M25.541, M25.542]; Rash [R21] OB Start: 06-19-2025 End: 06-19-2025 Patient encounter procedure 06/19/2025 10:40 AM EDT Routine Office Visit OB/Gynecology [address] [place] [address] Vida Nunn MD [address] [place] [address] OB OB/Gynecology Comment on above: OB Start: 06-05-2025 Influenza vaccination [facility] Start: 05-30-2025 End: 05-30-2025 Patient encounter procedure 05/30/2025 11:10 AM EDT Routine Office Visit OB/Gynecology [address] [place] [address] Yon Carrero MD [address] [place] [address] Glucose Test /OB OB/Gynecology Comment on above: Glucose Test /OB Start: 05-30-2025 End: 05-30-2025 ambulatory 05/30/2025 10:45 AM EDT Results Only [place] [facility] [address] [place] [address] Glucose Test [facility] Comment on above: Glucose Test Start: 05-16-2025 End: 08-14-2025 ANEMIA REFLEX PANEL ANEMIA REFLEX PANEL Lab Routine 24 weeks gestation of ([facility]) Encounter for supervision of low-risk first in second trimester ([facility]) Expected: 05/16/2025, Expires: 08/14/2025 [facility] Comment on above: Expected: 05/16/2025 , Expires: 08/14/2025 Start: 05-16-2025 End: 05-16-2026 GESTATIONAL GLUCOSE SCREEN, 1-HOUR, 50 GRAM, NON-FASTING GESTATIONAL GLUCOSE SCREEN, 1-HOUR, 50 GRAM, NON-FASTING Lab Routine Screening for diabetes mellitus 24 weeks gestation of ([facility]) Encounter for supervision of low-risk first in second trimester ([facility]) Expected: 05/16/2025, Expires: 05/16/2026 [facility] Work Phone: Comment on above: Expected: 05/16/2025 , Expires: 05/16/2026 Start: 05-16-2025 End: 05-16-2026 SYPHILIS TREPONEMAL W/REFLEX SYPHILIS TREPONEMAL W/REFLEX Lab Routine 24 weeks gestation of ([facility]) Encounter for supervision of low-risk first in second trimester ([facility]) Expected: 05/16/2025, Expires: 05/16/2026 [facility] Comment on above: Expected: 05/16/2025 , Expires: 05/16/2026 Start: 05-02-2025 End: 05-02-2025 Patient encounter procedure 05/02/2025 11:10 AM EDT Routine Office Visit OB/Gynecology [address] [place] [address] Jina Escalera MD [address] [place] [address] OB OB/Gynecology Comment on above: OB Start: 04-04-2025 End: 04-04-2025 Patient encounter procedure Maternal Medicine Comment on above: Anatomy/OB Start: 03-17-2025 End: 03-17-2025 Patient encounter procedure 03/17/2025 1:10 PM EDT Routine Office Visit OB/Gynecology [address] [place] [address] Jina Escalera MD [address] [place] [address] OB OB/Gynecology Comment on above: OB Start: 02-17-2025 End: 05-19-2025 Chromosome 21 trisomy [Presence] in Blood or Tissue by Cytogenetics [facility] Work Phone: Comment on above: Expected: 02/17/2025 , Expires: 05/19/2025 Start: 02-17-2025 End: 02-17-2025 Patient encounter procedure Maternal Medicine Comment on above: Nuchal Nuchal/OB Start: 01-18-2025 End: 04-19-2025 ANEMIA REFLEX PANEL ANEMIA REFLEX PANEL Lab Routine with uncertain dates in first trimester (HCC) care, first in first trimester (HCC) Expected: 01/18/2025, Expires: 04/19/2025 [facility] Comment on above: Expected: 01/18/2025 , Expires: 04/19/2025 Start: 01-18-2025 End: 04-19-2025 Hemoglobin A1c in Blood HEMOGLOBIN A1C Lab Routine with uncertain dates in first trimester (HCC) care, first in first trimester (HCC) Expected: 01/18/2025, Expires: 04/19/2025 [facility] Comment on above: Expected: 01/18/2025 , Expires: 04/19/2025 Start: 01-18-2025 End: 04-19-2025 Hepatitis B virus surface Ag [Presence] in Serum HEPATITIS B SURFACE ANTIGEN Lab Routine with uncertain dates in first trimester (HCC) care, first in first trimester (HCC) Expected: 01/18/2025, Expires: 04/19/2025 [facility] Comment on above: Expected: 01/18/2025 , Expires: 04/19/2025 Start: 01-18-2025 End: 04-19-2025 Hepatitis C virus Ab [Presence] in Serum HEPATITIS C ANTIBODY IA WITH CONFIRMATION Lab Routine with uncertain dates in first trimester ([facility]) care, first in first trimester ([facility]) Expected: 01/18/2025, Expires: 04/19/2025 [facility] Comment on above: Expected: 01/18/2025 , Expires: 04/19/2025 Start: 01-18-2025 End: 04-19-2025 HIV 1+2 Ab [Presence] in Serum or Plasma by Immunoassay HIV 1/2 COMBO WITH REFLEX TO DIFFERENTIATION Lab Routine with uncertain dates in first trimester ([facility]) care, first in first trimester ([facility]) Expected: 01/18/2025, Expires: 04/19/2025 [facility] Comment on above: Expected: 01/18/2025 , Expires: 04/19/2025 Start: 01-18-2025 End: 01-18-2026 OBSTETRIC ULTRASOUND WHI OBSTETRIC ULTRASOUND WHI Anc Imaging Routine with uncertain dates in first trimester ([facility]) care, first in first trimester ([facility]) Expected: 01/18/2025, Expires: 01/18/2026 [facility] Comment on above: Expected: 01/18/2025 , Expires: 01/18/2026 Start: 01-18-2025 End: 04-19-2025 RUBELLA IGG ANTIBODY RUBELLA IGG ANTIBODY Lab Routine with uncertain dates in first trimester ([facility]) care, first in first trimester ([facility]) Expected: 01/18/2025, Expires: 04/19/2025 [facility] Comment on above: Expected: 01/18/2025 , Expires: 04/19/2025 Start: 01-18-2025 End: 04-19-2025 SYPHILIS TREPONEMAL W/REFLEX SYPHILIS TREPONEMAL W/REFLEX Lab Routine with uncertain dates in first trimester ([facility]) care, first in first trimester ([facility]) Expected: 01/18/2025, Expires: 04/19/2025 [facility] Comment on above: Expected: 01/18/2025 , Expires: 04/19/2025 Start: 01-18-2025 End: 04-19-2025 TYPE + SCREEN TYPE + SCREEN Blood Bank Routine with uncertain dates in first trimester ([facility]) care, first in first trimester ([facility]) Expected: 01/18/2025, Expires: 04/19/2025 [facility] Comment on above: Expected: 01/18/2025 , Expires: 04/19/2025 Start: 06-05-2024 Covid-19 Vaccine ( season) Covid-19 Vaccine ( season) [facility] Start: 06-05-2024 Influenza vaccination Influenza Vacc ine (#1) [facility] Start: 01-02-2019 HPV Vaccine (1 - 3-dose SCDM series) HPV Vaccine (1 - 3-dose SCDM series) [facility] Start: 01-02-2013 Screening for malignant neoplasm of cervix Cervical Cancer Screening [facility] Start: 01-02-2011 Hepatitis B Vaccine (1 of 3 - 19+ 3-dose series) Hepatitis B Vaccine (1 of 3 - 19+ 3-dose series) [facility] Start: 01-02-2011 Urine microalbumin profile DTaP,Tdap,Td Vaccine (1 - Tdap) [facility] Start: 01-02-2010 Anxiety Screening Anxiety Screening [facility] Start: 01-02-2010 Depression Screening Depression Scre ening [facility] Start: 01-02-2010 Hepatitis C screening Hepatitis C Sc reening [facility] Start: 01-02-2010 HIV screening HIV Screening [facility] Bacteria identified in Urine by Culture BACTERIAL CULTURE, URINE Microbiology Routine with uncertain dates in first trimester (HCC) care, first in first trimester ([facility]) 01/18/2025 1:57 PM EDT [facility] BACTERIAL VAGINOSIS NAAT BACTERIAL VAGINOSIS NAAT Lab Routine Vaginal yeast infection 02/17/2025 12:41 PM EDT [facility] PAKO/TRICHOMONAS NAAT PAKO/TRICHOMONAS NAAT Lab Routine Vaginal yeast infection 02/17/2025 12:41 PM EDT [facility] Chlamydia trachomatis+Neisseria gonorrhoeae DNA [Presence] in Unspecified specimen by TOMAS with probe detection GONORRHEA/CHLAMYDIA NAAT Lab Routine with uncertain dates in first trimester (HCC) care, first in first trimester (HCC) 01/18/2025 1:57 PM EDT [facility] PAP TEST PAP TEST Lab Fito taylor Screening for cervical cancer Special screening examination for human papillomavirus (HPV) Ordered: 01/18/2025 [facility] Comment on above: Ordered: 01/18/2025 POC DESIGN PROJECT MANAGER ULTRASOUND POC DESIGN PROJECT MANAGER ULTRASO UND Anc Imaging Routine with uncertain dates in first trimester (HCC) Ordered: 01/18/2025 [facility] Work Phone: Comment on above: Ordered: 01/18/2025 TRICHOMONAS VAGINALI S NAAT TRICHOMONAS VAGINALIS NAAT Lab Routine Screen for STD (sexually transmitted disease) 01/18/2025 1:57 PM EDT [facility] Immunizations Immunization Date Immunization Notes Care Provider Tray thrasher 06-19-2025 tetanus toxoid, redu mindy diphtheria toxoid, and acellular pertussis vaccine, adsorbed Vida Nunn MD Work Phone: [facility] Payers Date Payer Category Payer Self-pay 2025 Unknown [id number] 2024 Private Health Insurance [facility] [id number] 2024 Unknown [id number] Unknown [id number] Social History Date Type Detail Facility Start: 01-17-2025 Tobacco smoking stat us [facility]IS Never smoked tobacco [facility] Start: 01-17-2025 Tobacco use and exposure Smoke less tobacco non-user [facility] Start: 01-18-2025 End: 06-19-2025 Alcoholic beverage intake Ex-drinker (finding) [facility] Start: 01-18-2025 End: 05-30-2025 History of Social function [facility] Start: 01-18-2025 End: 05-30-2025 Tobacco use panel [facility] Start: 01-17-2025 Education 18 [facility] Start: 12-07-2024 [facility] Start: 1990 Sex assigned at Female [facility] Start: 01-17-2025 Gender identity Identifies as female gender (finding) [facility] Start: 01-17-2025 Sexual orientation Heterosexual (fin ding) [facility] Start: 01-09-2025 Sex Female [facility] Goals Date Patient Goal Desired Activity /State Personal health goal Clinical Notes 01-17-2025 to 08-10-2025 Samantha Hernadez LPN - 06/19/2025 10:57 AM EDTPrenatal Quick Notes - Vida Nunn MD - 06/19/2025 10:50 AM EDTPrenatal Tere Notes - Vida Nunn MD - 06/19/2025 10:50 AM EDT Note Date & Type Note Facility 08-10-2025 Note HNO ID: [id number] Author: PINA MAGANA PA-C Service: ? Author Type: Physician Licensed Practical Vocational Nurse Type: Progress Notes Filed: 08/10/2025 17:14 Note Text: Rheumatology FOLLOW UP VISIT Date of Service: 08/10/2025 Patient: Chema Barbosa Medical Record: [id number] Primary Care Physician: No primary care provider on file. Last Rheumatology visit: 07/05/2025 (with Pina Magana) History of Present Illness Chema Barbosa is a 35-year-old female, , with a history of arthralgias and stiffness, presenting for follow-up. Chema is currently and due in approximately one week. She reports persistent arthralgias and stiffness, primarily in the hands, wrists, and knees. She notes that the pain and stiffness are most pronounced in the morning. She denies significant edema, stating that any swelling is likely due to her current weight gain of approximately 16 kg. She recently completed a 6-day course of methylprednisolone, starting on July 28 and ending on August 03, prescribed by her ENT at [facility]. She reports significant improvement in joint pain and stiffness while on the medication, with pain levels decreasing to 7/10. However, she notes that the pain began to return two days ago and is now back to a 7/10 severity. She expresses reluctance to continue long-term corticosteroid use due to potential risks to both herself and her baby. She is currently taking sulfasalazine, 1 tablet twice daily, but reports no noticeable benefits from the medication. She denies any side effects from sulfasalazine. She also reports worsening ear symptoms today, which she believes may be related to blood pressure fluctuations. Her blood pressure readings have been 120/86 mmHg yesterday and 131/89 mmHg today. She denies significant proteinuria, noting only trace amounts, and is actively managing her diet to reduce edema. This is her first , and she is hoping for a natural delivery without induction. She expresses a preference for her baby to be born after August 27. She is currently seeing her OB weekly and reports that her OB was supportive of her recent methylprednisolone taper. Pain Evaluation 07/05/2025 08/10/2025 Pain Evaluation Pain Score 6 7 Location Hand-Left Location Comment b/l Frequency Continuous Continuous Patient-Entered Data PROMIS Assessments No data to display No data to display No data to display No data to display RAPID 3 Nicole Activities of Daily Living No Data Dress self? - Get in and out of bed? - Walk outdoors? - Wash and dry body? - Get in and out of car? - RAPID 3 Disease Activity Weighed Score Levels: 0 - 1: Near Remission 1.3 - 2.0: Low Severity 2.3 - 4.0: Moderate Severity 4.3 - 10.0: High Severity No data to display Review of Systems ROS RHEUMATOLOGYAll other reviewed and negative other than HPI. Past Medical History PAST MEDICAL HISTORY Diagnosis Date Broken arm right age 13 Heart valve disorder tricuspid valve Past Surgical History History reviewed. No pertinent surgical history. Family History FAMILY HISTORY Problem Relation Age of Onset Hypertension Mother Alcohol abuse Father Social History SOCIAL HISTORY[1] Current Medications Current Outpatient Medications Medication Sig folic acid 1 mg tablet Take 2 tablets by mouth once daily. OTC NUTRITIONAL SUPPLEMENT Take 1 capsule by mouth once daily. CDP cholin MAGNESIUM GLYCINATE PO Take by mouth. aspirin, enteric coated (ECOTRIN LOW STRENGTH) 81 mg EC tablet Take 1 tablet by mouth once daily. [id number] ORAL Take 1 tablet by mouth once daily. methylPREDNISolone (MEDROL) 4 mg Take 4 tablets by mouth once daily for 3 days, THEN 3 tablets once daily for 3 days, THEN 2 tablets once daily for 3 days, THEN 1 tablet once daily. sulfaSALAzine (AZULFIDINE) 500 mg tablet Take 1000 mg in the morning and 500 mg in the evening. acyclovir (ZOVIRAX) 400 mg tablet Take 1 tablet by mouth three times a day. docosahexaenoic acid (DHA ORAL) Take by mouth. Labs Latest Ref Rng AND Units 02/17/2025 05/30/2025 07/20/2025 08/10/2025 CBC WBC 3.70 - 11.00 k/uL 6.07 7.53 8.44 7.85 Hemoglobin 11.5 - 15.5 g/dL 13.7 12.6 13.8 14.0 Hematocrit 36.0 - 46.0 % 39.6 37.1 38.6 40.3 Platelet Count 150 - 400 k/uL 196 174 161 154 Abs Neut (ANC) 1.45 - 7.50 k/uL 4.43 5.51 6.73 Abs Lymph 1.00 - 4.00 k/uL 1.17 1.31 0.92 Latest Ref Rng AND Units 07/20/2025 08/10/2025 CMP Sodium 136 - 144 mmol/L 135 135 Potassium 3.7 - 5.1 mmol/L 4.1 4.2 Chloride 98 - 107 mmol/L 105 105 CO2 22 - 30 mmol/L 17 18 Glucose 74 - 99 mg/dL 138 105 BUN 7 - 21 mg/dL 5 9 Creatinine 0.58 - 0.96 mg/dL 0.60 0.65 Calcium 8.5 - 10.2 mg/dL 9.4 9.8 AST 13 - 35 U/L 27 15 ALT 7 - 38 U/L 36 18 Alkaline Phosphatase 34 - 123 U/L 107 125 Latest Ref Rng AND Units 07/05/2025 ESR, WSR WSR 0 - 20 mm/hr 15 Latest Ref Rng AND Units (more content not included)... [facility] 07-05-2025 Note HNO ID: [id number] Author: PINA MAGANA PA-C Service: ? Author Type: Physician Licensed Practical Vocational Nurse Type: Progress Notes Filed: 07/05/2025 12:44 Note Text: Rheumatology CONSULTATION Date of Service: 07/05/2025 Patient: Chema Barbosa Medical Record: [id number] Primary Care Physician: No primary care provider on file. Last Rheumatology visit: None at [facility] Referring Provider: Y[address] [facility] [id number] Chema Barbosa is here today at request of Dr. Carrero specifically for consultation of my opinion in regards to the chief complaint listed below. Correspondence will be shared today via the [facility] electronic health record or through regular mail, where applicable. 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 Patient/authorized appliance service representative agreed to proceed History of Present Illness The patient is a 35-year-old female with seborrheic dermatitis, presenting at 32 weeks? gestation for evaluation of new-onset inflammatory polyarthritis affecting the hands, wrists, and Achilles tendons. Chema Barbosa reports a 6-8-week history of joint pain in both hands, involving all joints up to the wrists. She notes swelling and warmth in the right wrist and thumb, for which she has been using an yemu-aqn-razykqa brace continuously for 6 weeks without improvement. She experiences significant pain at night, particularly when pulling bed sheets, and is unable to make a fist in the morning due to stiffness and swelling. She also reports paresthesia in the left hand, affecting the middle three fingers. Additionally, she has bilateral Achilles tendon pain, worse in the morning and at night, with stiffness lasting approximately 10 minutes. The pain decreases with activity. She notes mild knee pain that began 2 weeks ago, which she attributes to weight gain. She denies pain in the elbows, shoulders, ankles, or feet. Chema Barbosa has a history of chronic mid-thoracic back pain for several years, previously evaluated with an MRI in [place], which showed no significant findings. She denies low back pain or sacroiliac joint pain. 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 She has since switched to T-Angel shampoo and uses topical corticosteroids for flare-ups in the temporal and parietal areas. She reports persistent flaking but denies any plaques. She denies oral or nasal ulcers, photosensitivity, Raynaud's phenomenon, unexplained fevers, ocular inflammation, dry eyes, dry mouth, dyspnea, cough, diarrhea, or hematochezia. She experiences occasional constipation, which she attributes to . She denies weight loss, smoking, alcohol, or drug use. Chema Barbosa has a family history of psoriasis in her grandmother and a great uncle. She denies any family history of rheumatoid arthritis, lupus, Crohn's disease, or ulcerative colitis. She is currently taking baby aspirin for blood pressure management during . She denies any previous miscarriages and this is her first , expecting a boy. She was diagnosed with tricuspid valve regurgitation approximately one year ago via ultrasound. She has no history of surgeries except for a broken arm at age 13, which required surgical intervention. Pain Evaluation 07/05/2025 Pain Evaluation Pain Score 6 Location Hand-Left Location Comment b/l Frequency Continuous Patient-Entered Data N/A Review of Systems ROS RHEUMATOLOGY RHEUMATOLOGIC REVIEW OF SYSTEMS: No ulcers in mouth or nose No photosensenitivity No history of blood clots No miscarriages - first , boy coming. + fatigue No history of Raynaud's No fevers NO bright red painful eyes No sicca No sob No cough No diarrhea, + Occasional constipation + chronic back pain - Prior eval by ortho in [place] - mostly mid-thoracic region, base of ribs, for about 3 years. That was present all day. NO low back or SI joint pain ? 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 Past Medical History PAST MEDICAL HISTORY Diagnosis Date Broken arm right age 13 Heart valve disorder tricuspid valve Past Surgical History No past surgical history on file. 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 [facility] 06-19-2025 Note HNO ID: [id number] Author: SAMANTHA HERNADEZ LPN Service: ? Author Type: Licensed Nurse Type: Progress Notes Filed: 06/19/2025 13:40 Note Text: Patient identified by name and date of . Chema Barbosa presents today for a vaccination of Tdap. Patient denies an allergy to latex: yes Patient denies a severe (life-threatening) allergy to a previous dose of Tdap, DTP, DTaP, DT or Td vaccine. Yes Patient denies history of epilepsy or neurological problems: Yes Patient is afebrile and denies being moderately or severely ill: Yes Patient denies history of Guillain-Gotha Syndrome (a severe paralytic illness): No Tdap Adacel injection was given without incident. See immunizations for details of immunizations administered today. VIS sheet provided: Yes Provider Dr. Vida Nunn was present in office at time of injection. Samantha Hernadez LPN [facility] 06-19-2025 History of Present illness Narrative Patient identified by name and date of . Chema Barbosa presents today for a vaccination of Tdap. Patient denies an allergy to latex: yes Patient denies a severe (life-threatening) allergy to a previous dose of Tdap, DTP, DTaP, DT or Td vaccine. Yes Patient denies history of epilepsy or neurological problems: Yes Patient is afebrile and denies being moderately or severely ill: Yes Patient denies history of Guillain-Gotha Syndrome (a severe paralytic illness): No Tdap Adacel injection was given without incident. See immunizations for details of immunizations administered today. VIS sheet provided: Yes Provider Dr. Vida Nunn was present in office at time of injection. Samantha Hernadez LPN documented in this encounter [facility] 06-19-2025 Progress note Formatting of t his note might be different from the original. RR- VB No. LOF No. CTXS No. Movement: present. Other c/o: No. Medication list reviewed. SENSITIVE EXAM: Sensitive exam not performed. Physical Exam See Flow Sheet Abd: soft, nontender, gravid Ext: edema: no A/P 29w5d Estimated Date of Delivery: 08/30/25 ASSESSMENT/PLAN: 1. Encounter for supervision of low-risk first in second trimester ([facility]) - ICD9: V22.0, ICD10: Z34.02 (primary diagnosis) 2. 29 weeks gestation of ([facility]) - ICD9: V22.2, ICD10: Z3A.29 3. Encounter for supervision of normal first in third trimester ([facility]) - ICD9: V22.0, ICD10: Z34.03 4. Need for xcbkqtonjv-gvhccqg-lofxwguvp (Tdap) vaccine - ICD9: V06.1, ICD10: Z23 breast pump given taking birthing classes Vida Nunn MD [facility] 06-19-2025 Miscellaneous Notes RR- VB No. LOF No. CTXS No. Movement: present. Other c/o: No. Medication list reviewed. SENSITIVE EXAM: Sensitive exam not performed. Physical Exam See Flow Sheet Abd: soft, nontender, gravid Ext: edema: no A/P 29w5d Estimated Date of Delivery: 08/30/25 ASSESSMENT/PLAN: 1. Encounter for supervision of low-risk first in second trimester ([facility]) - ICD9: V22.0, ICD10: Z34.02 (primary diagnosis) 2. 29 weeks gestation of ([facility]) - ICD9: V22.2, ICD10: Z3A.29 3. Encounter for supervision of normal first in third trimester ([facility]) - ICD9: V22.0, ICD10: Z34.03 4. Need for xoeftwaahj-ipixcjf-lfkxiwcdc (Tdap) vaccine - ICD9: V06.1, ICD10: Z23 breast pump given taking birthing classes Vida Nunn MD documented in this encounter [facility] 06-19-2025 Instructions Rubia Israel MA - 06/19/2025 10:44 AM EDT SEQUENTIAL SCREENINGS The [facility] offers sequential screenings for women who are interested in screenings for chromosomal abnormalities and certain defects during a . The sequential screen combines ultrasound and blood tests to determine the risk of chromosomal abnormalities, including Down's Syndrome (Trisomy 21) and Trisomy 18, as well as open neural tube defects including spina bifida. Ultrasound examination is performed between 11 weeks and 13 weeks gestational age. Blood tests are drawn after the ultrasound and again later in the between 15 and 21 weeks gestational age. Please let your physician know if you are interested in this testing. It will require an appointment with our electronic technician. This is not an ultrasound performed by a physician in our office during a routine visit. SIGNS AND SYMPTOMS OF LABOR 1. Contractions every 10 minutes or more often 2. Clear, pink, or brownish fluid (water) leaking from vagina 3. Feeling that baby is pushing down, pressure 4. Low, dull backache 5. Cramps that feel like a period 6. Cramps with or without diarrhea If you notice any of the above symptoms, contact our office at [phone] and ask to speak with a nurse. After hours, you can call doctors registry at [phone] OR call [facility] at [phone] and ask to have the doctor director of special education paged. If you consider this an emergency, dial 3-3-4 or go to your nearest emergency department. NEED HELP? Are you dealing with a violent or abusive relationship? Are you a victim of rape or sexual assult? Call [facility] ([facility] 24 hour Crisis Hotline: 165.178.7030 or 434-970-5747. MANUAL Your Guide to a Healthy manual is now on-line. Visit [email or web address] to download your free copy documented in this encounter [facility] 05-30-2025 Progress note Formatting of t his note might be different from the original. KJ - S: Chema denies LOF, contractions or vaginal bleeding. Her joint pain is stable. O: 26w6d, see flow sheet SENSITIVE EXAM: Sensitive exam not performed. A/P: Assessment & Plan 26 weeks gestation of ([facility]) Encounter for supervision of low-risk first in second trimester ([facility]) 28wk labs today Tdap next visit Declines LARC Reviewed PTL & FM precautions Yon Carrero MD [facility] 05-30-2025 Miscellaneous Notes KJ - S: Chema denies LOF, contractions or vaginal bleeding. Her joint pain is stable. O: 26w6d, see flow sheet SENSITIVE EXAM: Sensitive exam not performed. A/P: Assessment & Plan 26 weeks gestation of ([facility]) Encounter for supervision of low-risk first in second trimester ([facility]) 28wk labs today Tdap next visit Declines LARC Reviewed PTL & FM precautions Yon Carrero MD documented in this encounter [facility] 05-30-2025 Instructions Roxana Haney MA - 05/30/2025 10:55 AM EDT SEQUENTIAL SCREENINGS The [facility] offers sequential screenings for women who are interested in screenings for chromosomal abnormalities and certain defects during a . The sequential screen combines ultrasound and blood tests to determine the risk of chromosomal abnormalities, including Down's Syndrome (Trisomy 21) and Trisomy 18, as well as open neural tube defects including spina bifida. Ultrasound examination is performed between 11 weeks and 13 weeks gestational age. Blood tests are drawn after the ultrasound and again later in the between 15 and 21 weeks gestational age. Please let your physician know if you are interested in this testing. It will require an appointment with our electronic technician. This is not an ultrasound performed by a physician in our office during a routine visit. SIGNS AND SYMPTOMS OF LABOR 1. Contractions every 10 minutes or more often 2. Clear, pink, or brownish fluid (water) leaking from vagina 3. Feeling that baby is pushing down, pressure 4. Low, dull backache 5. Cramps that feel like a period 6. Cramps with or without diarrhea If you notice any of the above symptoms, contact our office at [phone] and ask to speak with a nurse. After hours, you can call doctors registry at [phone] OR call [facility] at [phone] and ask to have the doctor director of special education paged. If you consider this an emergency, dial [phone]- or go to your nearest emergency department. NEED HELP? Are you dealing with a violent or abusive relationship? Are you a victim of rape or sexual assult? Call [facility] ([place]) 24 hour Crisis Hotline: 797.821.9500 or 652-862-3033. MANUAL Your Guide to a Healthy manual is now on-line. Visit [email or web address] to download your free copy documented in this encounter [facility] 05-16-2025 Progress note Formatting of t his note might be different from the original. KJ - S: Chema denies LOF, contractions or vaginal bleeding. She reports a flaky scalp rash and has seen dermatology but the treatment is not helping. Also she reports joint pain in her hands. Patient is concerned about her FH of rheumatologic issues. O: 24w6d, see flow sheet SENSITIVE EXAM: Sensitive exam not performed. A/P: Assessment & Plan Screening for diabetes mellitus Orders: GESTATIONAL GLUCOSE SCREEN, 1-HOUR, 50 GRAM, NON-FASTING; Future 24 weeks gestation of (HCC) Orders: GESTATIONAL GLUCOSE SCREEN, 1-HOUR, 50 GRAM, NON-FASTING; Future SYPHILIS TREPONEMAL W/REFLEX; Future ANEMIA REFLEX PANEL; Future Encounter for supervision of low-risk first in second trimester (HCC) Orders: GESTATIONAL GLUCOSE SCREEN, 1-HOUR, 50 GRAM, NON-FASTING; Future SYPHILIS TREPONEMAL W/REFLEX; Future ANEMIA REFLEX PANEL; Future Arthralgia of both hands Orders: CONSULT TO RHEUM/IMMUN DISEASE; Future Rash Orders: CONSULT TO RHEUM/IMMUN DISEASE; Future Yon Carrero MD [facility] 05-16-2025 Miscellaneous Notes KJ - S: Chema denies LOF, contractions or vaginal bleeding. She reports a flaky scalp rash and has seen dermatology but the treatment is not helping. Also she reports joint pain in her hands. Patient is concerned about her FH of rheumatologic issues. O: 24w6d, see flow sheet SENSITIVE EXAM: Sensitive exam not performed. A/P: Assessment & Plan Screening for diabetes mellitus Orders: GESTATIONAL GLUCOSE SCREEN, 1-HOUR, 50 GRAM, NON-FASTING; Future 24 weeks gestation of (HCC) Orders: GESTATIONAL GLUCOSE SCREEN, 1-HOUR, 50 GRAM, NON-FASTING; Future SYPHILIS TREPONEMAL W/REFLEX; Future ANEMIA REFLEX PANEL; Future Encounter for supervision of low-risk first in second trimester (HCC) Orders: GESTATIONAL GLUCOSE SCREEN, 1-HOUR, 50 GRAM, NON-FASTING; Future SYPHILIS TREPONEMAL W/REFLEX; Future ANEMIA REFLEX PANEL; Future Arthralgia of both hands Orders: CONSULT TO RHEUM/IMMUN DISEASE; Future Rash Orders: CONSULT TO RHEUM/IMMUN DISEASE; Future Yon Carrero MD documented in this encounter [facility] 05-16-2025 Instructions Roxana Haney MA - 05/16/2025 11:08 AM EDT SEQUENTIAL SCREENINGS The [facility] offers sequential screenings for women who are interested in screenings for chromosomal abnormalities and certain defects during a . The sequential screen combines ultrasound and blood tests to determine the risk of chromosomal abnormalities, including Down's Syndrome (Trisomy 21) and Trisomy 18, as well as open neural tube defects including spina bifida. Ultrasound examination is performed between 11 weeks and 13 weeks gestational age. Blood tests are drawn after the ultrasound and again later in the between 15 and 21 weeks gestational age. Please let your physician know if you are interested in this testing. It will require an appointment with our electronic technician. This is not an ultrasound performed by a physician in our office during a routine visit. SIGNS AND SYMPTOMS OF LABOR 1. Contractions every 10 minutes or more often 2. Clear, pink, or brownish fluid (water) leaking from vagina 3. Feeling that baby is pushing down, pressure 4. Low, dull backache 5. Cramps that feel like a period 6. Cramps with or without diarrhea If you notice any of the above symptoms, contact our office at [phone] and ask to speak with a nurse. After hours, you can call doctors registry at [phone] OR call [facility] at [phone] and ask to have the doctor director of special education paged. If you consider this an emergency, dial 4-8-0 or go to your nearest emergency department. NEED HELP? Are you dealing with a violent or abusive relationship? Are you a victim of rape or sexual assult? Call [facility] ([place]) 24 hour Crisis Hotline: 596.541.5152 or 573-917-8233. MANUAL Your Guide to a Healthy manual is now on-line. Visit [email or web address] to download your free copy documented in this encounter [facility] 04-04-2025 Progress note Formatting of t his note might be different from the original. KJ - S: Chema denies LOF, contractions or vaginal bleeding. She reports some acid reflux, bloating & constipation. O: 18w6d, see flow sheet SENSITIVE EXAM: Sensitive exam not performed. A/P: Assessment & Plan Encounter for supervision of low-risk first in second trimester (HCC) 18 weeks gestation of ([facility]) Anatomy US today. Constipation, unspecified constipation type Advised on nutrition and hydration. All questions answered. Yon Carrero MD [facility] 04-04-2025 Miscellaneous Notes KJ - S: Chema denies LOF, contractions or vaginal bleeding. She reports some acid reflux, bloating & constipation. O: 18w6d, see flow sheet SENSITIVE EXAM: Sensitive exam not performed. A/P: Assessment & Plan Encounter for supervision of low-risk first in second trimester (HCC) 18 weeks gestation of ([facility]) Anatomy US today. Constipation, unspecified constipation type Advised on nutrition and hydration. All questions answered. Yon Carrero MD documented in this encounter [facility] 04-04-2025 Instructions Roro Rodriguez MA - 04/04/2025 1:24 PM EDT SEQUENTIAL SCREENINGS The [facility] offers sequential screenings for women who are interested in screenings for chromosomal abnormalities and certain defects during a . The sequential screen combines ultrasound and blood tests to determine the risk of chromosomal abnormalities, including Down's Syndrome (Trisomy 21) and Trisomy 18, as well as open neural tube defects including spina bifida. Ultrasound examination is performed between 11 weeks and 13 weeks gestational age. Blood tests are drawn after the ultrasound and again later in the between 15 and 21 weeks gestational age. Please let your physician know if you are interested in this testing. It will require an appointment with our electronic technician. This is not an ultrasound performed by a physician in our office during a routine visit. SIGNS AND SYMPTOMS OF LABOR 1. Contractions every 10 minutes or more often 2. Clear, pink, or brownish fluid (water) leaking from vagina 3. Feeling that baby is pushing down, pressure 4. Low, dull backache 5. Cramps that feel like a period 6. Cramps with or without diarrhea If you notice any of the above symptoms, contact our office at [phone] and ask to speak with a nurse. After hours, you can call doctors registry at [phone] OR call [facility] at [phone] and ask to have the doctor director of special education paged. If you consider this an emergency, dial 9-1-1 or go to your nearest emergency department. NEED HELP? Are you dealing with a violent or abusive relationship? Are you a victim of rape or sexual assult? Call [facility] ([facility] 24 hour Crisis Hotline: 188.777.2577 or 450-052-6081. MANUAL Your Guide to a Healthy manual is now on-line. Visit [email or web address] to download your free copy documented in this encounter [facility] 03-17-2025 Progress note Formatting of t his note might be different from the original. S: Chemadiego Barbosa is a 35 year old female who presents at 08/30/2025, by Last Menstrual Period for a routine visit. Denies headache, visual changes, chest pain, shortness of breath, vaginal bleeding, leakage of fluid, or dysuria. Feeling well, no complaints. O: See flow sheet Gen: No apparent distress Abd: Gravid, nontender Slight movement Anatomy US next visit ASSESSMENT/PLAN: 1. 16 weeks gestation of ([facility]) - ICD9: V22.2, ICD10: Z3A.16 (primary diagnosis) 2. Encounter for supervision of low-risk first in second trimester ([facility]) - ICD9: V22.0, ICD10: Z34.02 Jina Escalera MD [facility] 03-17-2025 Miscellaneous Notes S: Chema Barbosa is a 35 year old female who presents at 08/30/2025, by Last Menstrual Period for a routine visit. Denies headache, visual changes, chest pain, shortness of breath, vaginal bleeding, leakage of fluid, or dysuria. Feeling well, no complaints. O: See flow sheet Gen: No apparent distress Abd: Gravid, nontender Slight movement Anatomy US next visit ASSESSMENT/PLAN: 1. 16 weeks gestation of ([facility]) - ICD9: V22.2, ICD10: Z3A.16 (primary diagnosis) 2. Encounter for supervision of low-risk first in second trimester ([facility]) - ICD9: V22.0, ICD10: Z34.02 Jina Escalera MD documented in this encounter [facility] 03-17-2025 Instructions Roxana Haney MA - 03/17/2025 12:55 PM EDT SEQUENTIAL SCREENINGS The [facility] offers sequential screenings for women who are interested in screenings for chromosomal abnormalities and certain defects during a . The sequential screen combines ultrasound and blood tests to determine the risk of chromosomal abnormalities, including Down's Syndrome (Trisomy 21) and Trisomy 18, as well as open neural tube defects including spina bifida. Ultrasound examination is performed between 11 weeks and 13 weeks gestational age. Blood tests are drawn after the ultrasound and again later in the between 15 and 21 weeks gestational age. Please let your physician know if you are interested in this testing. It will require an appointment with our electronic technician. This is not an ultrasound performed by a physician in our office during a routine visit. SIGNS AND SYMPTOMS OF LABOR 1. Contractions every 10 minutes or more often 2. Clear, pink, or brownish fluid (water) leaking from vagina 3. Feeling that baby is pushing down, pressure 4. Low, dull backache 5. Cramps that feel like a period 6. Cramps with or without diarrhea If you notice any of the above symptoms, contact our office at [phone] and ask to speak with a nurse. After hours, you can call doctors registry at [phone] OR call [facility] at [phone] and ask to have the doctor director of special education paged. If you consider this an emergency, dial 9-9-5 or go to your nearest emergency department. NEED HELP? Are you dealing with a violent or abusive relationship? Are you a victim of rape or sexual assult? Call [facility] ([place]) 24 hour Crisis Hotline: 830.493.2465 or 967-529-7798. MANUAL Your Guide to a Healthy manual is now on-line. Visit [email or web address] to download your free copy documented in this encounter [facility] 02-20-2025 Progress note Formatting of t his note might be different from the original. Anatomy ultrasound reviewed. No abnormalities identified. Follow up as clinically indicated. Please place copy in ob chart. Vida Nunn MD [facility] Work Phone: 02-20-2025 Miscellaneous Notes Anatomy ultrasound reviewed. No abnormalities identified. Follow up as clinically indicated. Please place copy in ob chart. Vida Nunn MD documented in this encounter [facility] 02-20-2025 Telephone encounter Note Pharmacy is up to date. Josefina Hurley RN [facility] 02-20-2025 Miscellaneous Notes Pharmacy is up to date. Josefina Hurley RN documented in this encounter [facility] 02-17-2025 Progress note Formatting of t his note might be different from the original. SW- No pain, vb, lof. Having vulvar itching that is bothersome for her PE: Gen- NAD, well appearing See flowsheet A/p 12 wk gestation - NT today and final report pending - Discussed coverage and cost of NIPT and patient desires. Information given for her to review and order placed - NOB labs today - Check BV, yeast. Suspect yeast infection. Information given on vulvar care and hygiene measures. Monistat 7 rx sent if +pako on test - RTO 4 wks Patsy Sapp DO [facility] 02-17-2025 Miscellaneous Notes SW- No pain, vb, lof. Having vulvar itching that is bothersome for her PE: Gen- NAD, well appearing See flowsheet A/p 12 wk gestation - NT today and final report pending - Discussed coverage and cost of NIPT and patient desires. Information given for her to review and order placed - NOB labs today - Check BV, yeast. Suspect yeast infection. Information given on vulvar care and hygiene measures. Monistat 7 rx sent if +pako on test - RTO 4 wks Patsy Sapp DO documented in this encounter [facility] 02-17-2025 Instructions Patsy Sapp MD - 02/17/2025 11:42 AM EDT SEQUENTIAL SCREENINGS The [facility] offers sequential screenings for women who are interested in screenings for chromosomal abnormalities and certain defects during a . The sequential screen combines ultrasound and blood tests to determine the risk of chromosomal abnormalities, including Down's Syndrome (Trisomy 21) and Trisomy 18, as well as open neural tube defects including spina bifida. Ultrasound examination is performed between 11 weeks and 13 weeks gestational age. Blood tests are drawn after the ultrasound and again later in the between 15 and 21 weeks gestational age. Please let your physician know if you are interested in this testing. It will require an appointment with our electronic technician. This is not an ultrasound performed by a physician in our office during a routine visit. SIGNS AND SYMPTOMS OF LABOR 1. Contractions every 10 minutes or more often 2. Clear, pink, or brownish fluid (water) leaking from vagina 3. Feeling that baby is pushing down, pressure 4. Low, dull backache 5. Cramps that feel like a period 6. Cramps with or without diarrhea If you notice any of the above symptoms, contact our office at [phone] and ask to speak with a nurse. After hours, you can call doctors registry at [phone] OR call [facility] at [phone] and ask to have the doctor director of special education paged. If you consider this an emergency, dial 9-1-1 or go to your nearest emergency department. NEED HELP? Are you dealing with a violent or abusive relationship? Are you a victim of rape or sexual assult? Call [facility] ([facility] 24 hour Crisis Hotline: 612.963.3867 or 720-960-5095. MANUAL Your Guide to a Healthy manual is now on-line. Visit [email or web address] to download your free copy Minimizing irritation of the vulva (area around the vagina) Wear white cotton underwear. Avoid synthetic fabrics and tight clothing. Sleep wearing shorts or pajama bottoms without underwear. Shower as soon as possible after exercise. Avoid clothing detergents and soaps with perfumes or dyes. Use warm (not hot) water to wash the vulva and if you use soap use a product designed for sensitive skin (like Dove or Cetaphil). Do not douche or use creams/powders in the vulvar area unless instructed by your physician. If you must douche, use only plain warm water. Make sure the vulva is dry before dressing by patting dry with a towel. Avoid vigorous rubbing with the towel. You may want to use the blow dryer (on the cool setting only!) on the vulva. The most important way to let your body heal is by avoiding scratching. Many patients find it difficult to avoid scratching at night when they are most aware of the itchiness. You can try taking Benadryl just before bedtime. Some women find it helpful to wear cotton gloves to bed to avoid scratching at night. documented in this encounter [facility] 01-18-2025 Progress note Formatting of t his note might be different from the original. Patient is here for NOB. See progress note. Lalita Moncada APRN.CNM [facility] 01-18-2025 Miscellaneous Notes Patient is here for NOB. See progress note. Lalita Moncada APRN.CNM documented in this encounter [facility] 01-17-2025 Note HNO ID: [id number] Author: LALITA MONCADA APRN.CNM Service: ? Author Type: [employer] Type: Progress Notes Filed: 01/18/2025 14:18 Note Text: INITIAL OB ASSESSMENT Patient declined director of academic support. HPI: Chema is a 35 year old No obstetric history on file. White here to establish Obstetrical Care. Patient's last menstrual period was 11/23/2024. from OB Dating Form. was planned Complaints: (!) Heart racing or skipping beats, intermittent. OB History No obstetric history on file. Previous history: Prior : never History of 4th degree laceration: No History of shoulder dystocia: No History of Hypertensive disorders including pre-eclampsia or gestational hypertension: No History of gestational diabetes: No Patient's Risk Screening for delivery: Have you had a prior mazariegos between 20w and 36w6d? No How many pregnancies have you had before? 0 Did you have a previous baby with a GBS Infection? No Please select all that apply for any prior : N/A MEDICAL/PSYCHOSOCIAL HISTORY: History of hemorrhage or bleeding concerns: No Thyroid Disease: No History of chronic hypertension: No History of pre-existing diabetes: No No results found for: ABORHD BMI 25.02 kg/(m2) Last Pap: History of abnormal pap: No Prior treatment for cervical dysplasia: none. Last HPV: History of STDs: Chlamydia Partner History of STDs: None Did you have a partner with Herpes? No Tobacco use: No E-Cigarette/Vaping Use: No Caffeine use: No Drug use: No Alcohol use: No Multivitamin with Folic acid: Yes Would refuse blood transfusion if medically necessary: No Social Needs: How often does this describe you? I don't have enough money to pay my bills: Never Within the past 12 months, have you worried that your food would run out before you had money to buy more? Never In the past 12 months, has lack of reliable transportation kept you from going to medical appointments or work, or from getting things needed for daily living? Never In the past 12 months, have you had any concerns about having a place to live, or about the condition or quality of your housing? Never Would you like more information on any of the following (please check all that apply)? Centering (group care classes); [employer] care Social History: Do you have any history of depression, anxiety, PTSD, or other mood problems? Denies Do you have a history of abuse or trauma that may impact your experience? No Are you currently employed? No Depression/Anxiety Screening: denies, admits to symptoms of depression. OB Depression and Anxiety Screening- This Encounter (since 01/16/2025) None Genetic Screening: Partner present: No Patient verbalized knowledge of partner family health history: Yes Do you or your partner have any personal or family history of defects not previously discussed: No Do you have history of a complicated by anomaly, genetic condition, or demise: No Preeclampsia Risk Screening: Screening for prevention of preeclampsia: High risk factors: None Moderate risk ractors: Nulliparity OB Risk Screening: Completed, no positive findings documented. 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 No past surgical history on file. No current outpatient medications on file. No current facility-administered medications for this visit. Allergies As of Date: 01/18/2025 (Not on File) Does patient have penicillin allergy: No REVIEW OF SYSTEMS: GENERAL: Negative for: Fever or Chills and Positive for: Fatigue HEENT: Negative for: Headache, Impaired Vision, Ringing in Ears, Nosebleeds NECK: Negative for: Swelling, Pain, Stiffness RESPIRATORY: Negative for: Cough, Shortness of breath, Wheezing GASTROINTESTINAL: Negative for: Heartburn, Constipation, Diarrhea, Blood in stool, Vomiting and Positive for: Nausea and Vomiting MUSCULOSKELETAL: Negative for: Muscle or joint pain, stiffness, Joint swelling NEUROLOGIC/PSYCHIATRIC: Negative for: Weakness, Paralysis, Numbness, Tingling, Tremor, Anxiety, Depression, Memory loss SKIN: Negative for: Rash, Itching GENITOURINARY: Negative for: vaginal itching, vaginal discharge, hematuria or dysuria SENSITIVE EXAM: The sensitive examination was discussed with the Patient or Patient's Authorized Director Of Special Education. As applicable, any other physician, advance practice provider, medical student, or other health professional student that will be observing or involved in the sensitive examination for educational or training purposes was discussed with the Patient or Authorized Director Of Special Education. The Patient or Authorized Director Of Special Education has agreed to proceed with the sensitive examination. (Sensitive examination includes inspection and/or palpatio (more content not included)... [facility] 01-17-2025 History of Present illness Narrative INITIAL OB ASSESSMENT Patient declined director of academic support. HPI: Chema is a 35 year old No obstetric history on file. White here to establish Obstetrical Care. Patient's last menstrual period was 11/23/2024. from OB Dating Form. was planned Complaints: (!) Heart racing or skipping beats, intermittent. OB History No obstetric history on file. Previous history: Prior : never History of 4th degree laceration: No History of shoulder dystocia: No History of Hypertensive disorders including pre-eclampsia or gestational hypertension: No History of gestational diabetes: No Patient's Risk Screening for delivery: Have you had a prior mazariegos between 20w and 36w6d? No How many pregnancies have you had before? 0 Did you have a previous baby with a GBS Infection? No Please select all that apply for any prior : N/A MEDICAL/PSYCHOSOCIAL HISTORY: History of hemorrhage or bleeding concerns: No Thyroid Disease: No History of chronic hypertension: No History of pre-existing diabetes: No No results found for: ABORHD BMI 25.02 kg/(m^2) Last Pap: History of abnormal pap: No Prior treatment for cervical dysplasia: none. Last HPV: History of STDs: Chlamydia Partner History of STDs: None Did you have a partner with Herpes? No Tobacco use: No E-Cigarette/Vaping Use: No Caffeine use: No Drug use: No Alcohol use: No Multivitamin with Folic acid: Yes Would refuse blood transfusion if medically necessary: No Social Needs: How often does this describe you? I don't have enough money to pay my bills: Never Within the past 12 months, have you worried that your food would run out before you had money to buy more? Never In the past 12 months, has lack of reliable transportation kept you from going to medical appointments or work, or from getting things needed for daily living? Never In the past 12 months, have you had any concerns about having a place to live, or about the condition or quality of your housing? Never Would you like more information on any of the following (please check all that apply)? Centering (group care classes); [employer] care Social History: Do you have any history of depression, anxiety, PTSD, or other mood problems? Denies Do you have a history of abuse or trauma that may impact your experience? No Are you currently employed? No Depression/Anxiety Screening: denies, admits to symptoms of depression. OB Depression and Anxiety Screening- This Encounter (since 01/16/2025) None Genetic Screening: Partner present: No Patient verbalized knowledge of partner family health history: Yes Do you or your partner have any personal or family history of defects not previously discussed: No Do you have history of a complicated by anomaly, genetic condition, or demise: No Preeclampsia Risk Screening: Screening for prevention of preeclampsia: High risk factors: None Moderate risk ractors: Nulliparity OB Risk Screening: Completed, no positive findings documented. 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 No past surgical history on file. No current outpatient medications on file. No current facility-administered medications for this visit. Allergies As of Date: 01/18/2025 (Not on File) Does patient have penicillin allergy: No REVIEW OF SYSTEMS: GENERAL: Negative for: Fever or Chills and Positive for: Fatigue HEENT: Negative for: Headache, Impaired Vision, Ringing in Ears, Nosebleeds NECK: Negative for: Swelling, Pain, Stiffness RESPIRATORY: Negative for: Cough, Shortness of breath, Wheezing GASTROINTESTINAL: Negative for: Heartburn, Constipation, Diarrhea, Blood in stool, Vomiting and Positive for: Nausea and Vomiting MUSCULOSKELETAL: Negative for: Muscle or joint pain, stiffness, Joint swelling NEUROLOGIC/PSYCHIATRIC: Negative for: Weakness, Paralysis, Numbness, Tingling, Tremor, Anxiety, Depression, Memory loss SKIN: Negative for: Rash, Itching GENITOURINARY: Negative for: vaginal itching, vaginal discharge, hematuria or dysuria SENSITIVE EXAM: The sensitive examination was discussed with the Patient or Patient's Authorized Director Of Special Education. As applicable, any other physician, advance practice provider, medical student, or other health professional student that will be observing or involved in the sensitive examination for educational or training purposes was discussed with the Patient or Authorized Director Of Special Education. The Patient or Authorized Director Of Special Education has agreed to proceed with the sensitive examination. (Sensitive examination includes inspection and/or palpation of the breasts, pelvis, prostate and anorectal regions). PHYSICAL EXAM: BP 118/62 Ht 5' 6.339 (1.69m) Wt 156 lb 9.6 oz (71.0kg) LMP 11/23/2024 BMI 25.02 kg/(m^2). GENERAL: pleasant in no apparent distress DERMATOLOGY: Normal, without lesions, non-icteric, and non-hirsute NECK: Supple, full range of motion, no adenopathy, and thyroid normal CHEST: Normal inspiratory effort BREAST: soft, non-tender, symmetric, no dominant mass, normal nipple-areolar complex, no lymphadenopathy, and no nipple discharge ABDOMEN: soft, non-tender, and no masses NEURO: alert and oriented x3,exam grossly non-focal PELVIS: External genitalia normal without lesions. Perineal body intact. No vaginal or cervical lesions. Cervix closed. Uterus retrograde position week size. Clinical Pelvimetry: Pelvimetry clinically assessed as adequate Limited OB ultrasound exam: single intrauterine , positive cardiac activity, and crown-rump length 7.3 weeks ASSESSMENT: 35 year old No obstetric history on file. at Unknown wks gestational age PLAN: 1) Patient oriented to practice. Patient given new OB orientation folder. Discussed nutrition, folic acid supplementation, dietary guidelines, exercise, smoking, alcohol, caffeine, and drug use. Discussed gestational weight gain guidelines. Discussed routine OB labs including STD/HIV. Discussed how to access Your guide to a health and the Admissions Specialist. Reviewed midwifery and psychologist engineering services that are available. 2) Screening: Hemoglobin A1C: ordered Baby Aspirin: The patient has been counseled about the potential benefits of low dose aspirin in and our recommendation that this be offered to all patients, regardless of whether they meet the high risk criteria specified above. She Accepts Aneuploidy Screening: Discussed aneuploidy screening, nuchal translucency/first trimester early anatomy ultrasound and NIPT. The risks/benefits and limitations of NIPT/aneuploidy screening were reviewed including the potential for false negative and false positive results. The availability of genetic counseling was reviewed. Information on aneuploidy screening was provided. The patient chooses to proceed with First trimester early anatomy ultrasound (12-13w6d) and NIPT (10 weeks) Myriad Carrier Screening: Discussed myriad carrier screening. We discussed the availability of professional-society guided carrier screening and reviewed the conditions screened and limitations of screening. The availability of genetic counseling was reviewed. Information on carrier screening was provided. The patient Declines 3) Patient offered option of Virtual Visits. Patient prefers in person visits. Follow up in 4 weeks or sooner prn. Lalita Moncada APRN.CNM documented in this encounter [facility] 01-17-2025 Instructions Lalita Moncada APRN.CNM - 01/17/2025 12:19 PM EDT MORNING SICKNESS IN by Neena Charles M.D. for [employer] As you may already know, morning sickness can often be more appropriately called evening sickness or ovmyo-pycnig-eo-the-day sickness. While there are the scottie few, most women (50-90%) experience some degree of nausea, some have vomiting, and a few develop a severe form of vomiting during called hyperemesis gravidarum. What causes the nausea and vomiting of ? We can't explain why some people feel fine and others are green for months. Even the same woman may feel vastly different in each . There is some relationship between nausea and the level of the hormone hCG. In twin pregnancies, and in other situations where the hCG is greater than expected, nausea and vomiting tend to be worse. In a destined for miscarriage, hCG levels tend to be low, and nausea is often less severe. This being said, a lack of nausea doesn't guarantee that the is destined for miscarriage. The fact that nausea and vomiting are often signs of a healthy can offer a silver lining in the dark cloud of miserable nausea. How long will the nausea last? Fortunately, for most women, nausea and vomiting are a first trimester event, peaking at week 9-10 and waning by week 14-16. When you are feeling bad the weeks can go by slowly but most moms do feel tremendously better by the middle of the . Whether morning sickness is a brief experience or lasts through most of the , there are treatments that can make the weeks or months more tolerable. What can you do about it? Diet: See what works for you. Try eating bland dry foods, and avoid fatty or spicy foods. It is okay to eat a less than perfectly balanced diet in the first trimester. Have your liquids separately from dry foods. Try sports drinks, water, clear juices, Wilfredo-aid, or non-caffeinated tea. Avoid carbonated beverages that fill up your stomach. Try eating lots of little meals. If you tend to feel sick when you first wake up, leave crackers next to the bed for a quick snack before rising. Keeping healthy snacks with you all day to nibble when you feel queasy can sometimes even prevent nausea from starting. vitamins and nausea: Pre-erick vitamins can sometimes worsen nausea in . While folate is necessary, especially early in the , it comes as a smaller pill that many people find more tolerable than the complete vitamin pill. Ask your practitioner if it is okay to temporarily replace vitamins and iron with just a folate pill if you find a significant worsening in the level of your nausea from the vitamins. Alternative therapies: Acupressure may be used to treat nausea in , and is not known to have any risks for the fetus. Wristbands (marketed for seasickness) that put pressure on an acupressure point at the wrist are often available at drugstores or travel stores. Eryn root is used for nausea in many traditional cultures. Some women take fresh grated eryn or eryn tablets. It is possible that the pill form contains other ingredients or contaminants, so you may want to try fresh eryn first. Medications: Emetrol is the only nausea medication approved for use in . It is available over the counter and is soothing to the stomach. A prescription medication called Bendectin was available in the 1970s-1979's and was shown to be safe in , but the company stopped marketing it in the [place] due to the costs of liability coverage. Bendectin contained 10 milligrams of vitamin B6 and 10 milligrams of Doxylamine. Two tablets were given at bedtime and a total of up to 4 tablets could be used in a 24-hour period. Interestingly, Unisom , which contains a higher dose (25 mg.) of the same medication, Doxylamine, is currently marketed as an avcl-fbh-kvyxfpw sleeping pill. Ask your practitioner if creating a vitamin B6/Doxylamine combination with rgkq-wmm-fnohbyy medications would be safe for you. Prescription medications like Compazine and Phenergan can be used if the benefits outweigh possible risks, but these have not been clearly shown to be safe in . Zofran , an expensive anti-nausea medication often used to treat nausea from chemotherapy, can also be used. Can I throw up so much it harms the baby? The act of vomiting cannot hurt your fetus, which is protected inside the uterus. If you get dehydrated or develop a metabolic imbalance, this can be unhealthy. As long as you can keep down liquids, you and your baby will generally do all right. Eat when you feel able. If you are unable to keep anything down, or if you notice potential signs of dehydration such as lightheadedness, or concentrated and/or infrequent urination, call your practitioner. Some women need brief hospital admission for intravenous fluids and anti-nausea medications if their condition becomes severe. This severe form of nausea and vomiting is called Hyperemesis Gravidarum. As with many symptoms of , remind yourself that this, too, shall pass, and you'll have a wonderful baby to show for it! TREATMENT OPTIONS, SHORT VERSION: Frequent small meals Hydrate throughout day [employer] wrist pressure point applicators Eryn root (powdered, in capsules) 250mg four times a day Vitamin B6 25 mg tablet three times a day Also may be taken with half a tablet of Unisom three times a day (Doxylamine 12.5 mg) If severe (weight loss, dehydration), call us and come in for IV hydration and possible medication in the form of injections. Prescription medications such as Phenergan, Compazine, Reglan Please select the following link to access the [facility] Your Guide to a Healthy . [email or web address] Please select the following link to access the [facility] Your Guide to a Healthy . [email or web address] documented in this encounter [facility] Evaluation note Diagnosis with uncertain dates in first trimester (HCC)- Primary care, first in first trimester ([facility]) Screen for STD (sexually transmitted disease) Screening examination for venereal disease Screening for cervical cancer Screening for malignant neoplasm of the cervix Special screening examination for human papillomavirus (HPV) Nausea Nausea alone Encounter for supervision of low-risk first in first trimester (HCC) Heart valve disorder Endocarditis, valve unspecified, unspecified cause [facility] Diagnosis care, first in first trimester (HCC)- Primary 12 weeks gestation of ([facility]) state, incidental Oral herpes Herpetic gingivostomatitis Vaginal yeast infection Candidiasis of vulva and vagina [facility] Diagnosis Encounter for screening for malformation using ultrasound ([facility])- Primary 12 weeks gestation of ([facility]) state, incidental [facility] Diagnosis 16 weeks gestation of ([facility])- Primary state, incidental Encounter for supervision of low-risk first in second trimester ([facility]) [facility] [place] [facility]* Diagnosis Encounter for anatomic survey ([facility])- Primary Encounter for anatomic survey 18 weeks gestation of ([facility]) state, incidental documented [facility] this encounter [facility] [place] [facility]* Diagnosis Encounter for supervision of low-risk first in second trimester ([facility])- Primary 18 weeks gestation of ([facility]) state, incidental Constipation, unspecified constipation type documented [facility] this encounter [facility] [place] [facility]* Diagnosis Screening for diabetes mellitus- Primary 24 weeks gestation of ([facility]) state, incidental Encounter for supervision of low-risk first in second trimester ([facility]) Arthralgia of both hands Rash Rash and other nonspecific skin eruption documented [facility] [place] [facility]* Diagnosis 26 weeks gestation of ([facility])- Primary state, incidental Encounter for supervision of low-risk first in second trimester ([facility]) [facility] Diagnosis Encounter for supervision of low-risk first in second trimester ([facility])- Primary 29 weeks gestation of ([facility]) state, incidental Encounter for supervision of normal first in third trimester ([facility]) Supervision of normal first Need for szkmxywith-aiofpbs-zmktzhoia (Tdap) vaccine Need for prophylactic vaccination with combined toirnsrfuh-ngirgmu-ppvzsmntd (DTP) vaccine Encounter for supervision of low-risk first in first trimester ([facility]) Need for vaccination Need for prophylactic vaccination and inoculation against unspecified single disease documented in this encounter [facility] Summary Purpose Family History No Family History Records FoundNo Family History Records Found Advance Directives No Advanced Directives Records FoundNo Advanced Directives Records Found Additional Source Comments Source Comments (unrecognize d section and content) In the event this informatio n is protected by the Federal Confidentiality of Alcohol and Drug Abuse Patient Records regulations: The Federal rules restrict any use of the information to criminally investigate or prosecute any alcohol or drug abuse patient.[facility] the event this information is protected by the Federal Confidentiality of Alcohol and Drug Abuse Patient Records regulations: The Federal rules restrict any use of the information to criminally investigate or prosecute any alcohol or drug abuse patient.[facility] the event this information is protected by the Federal Confidentiality of Alcohol and Drug Abuse Patient Records regulations: The Federal rules restrict any use of the information to criminally investigate or prosecute any alcohol or drug abuse patient.[facility] the event this information is protected by the Federal Confidentiality of Alcohol and Drug Abuse Patient Records regulations: The Federal rules restrict any use of the information to criminally investigate or prosecute any alcohol or drug abuse patient.[facility] the event this information is protected by the Federal Confidentiality of Alcohol and Drug Abuse Patient Records regulations: The Federal rules restrict any use of the information to criminally investigate or prosecute any alcohol or drug abuse patient.[facility] the event this information is protected by the Federal Confidentiality of Alcohol and Drug Abuse Patient Records regulations: The Federal rules restrict any use of the information to criminally investigate or prosecute any alcohol or drug abuse patient.[facility] the event this information is protected by the Federal Confidentiality of Alcohol and Drug Abuse Patient Records regulations: The Federal rules restrict any use of the information to criminally investigate or prosecute any alcohol or drug abuse patient.[facility] the event this information is protected by the Federal Confidentiality of Alcohol and Drug Abuse Patient Records regulations: The Federal rules restrict any use of the information to criminally investigate or prosecute any alcohol or drug abuse patient.[facility] Center[facility] the event this information is protected by the Federal Confidentiality of Alcohol and Drug Abuse Patient Records regulations: The Federal rules restrict any use of the information to criminally investigate or prosecute any alcohol or drug abuse patient.[facility] Center[facility] the event this information is protected by the Federal Confidentiality of Alcohol and Drug Abuse Patient Records regulations: The Federal rules restrict any use of the information to criminally investigate or prosecute any alcohol or drug abuse patient.[facility] Center[facility] the event this information is protected by the Federal Confidentiality of Alcohol and Drug Abuse Patient Records regulations: The Federal rules restrict any use of the information to criminally investigate or prosecute any alcohol or drug abuse patient.[facility] Reason for Visit (unrecogniz ed section and content) Reason Comments Initial OB Visit Specialty Diagnoses / Procedures Referred By Ramiro t Referred To Contact Swing Saw Operator / BEAN SNAPPER Diagnoses Encounter for gynecological examination (general) (routine) without abnormal findings New OB/ LMP 11/23 Procedures OFFICE/OUTPATIENT NEW HIGH MDM 60 MINUTES NEW I OB 1ST EXAM Self Lalita Moncada APRN.CNLola [address] [place] [address] Phone: tel: fax:[phone] Referral ID Status Reason Start Date Expiration Date V isits Requested Visits Authorized [id number] Authorized 01/18/2025 11/05/2025 99 99 Reason Onset Date Comments Care 02/17/2025 Specialty Diagnoses / Procedures Referred By Contac t Referred To Contact Swing Saw Operator / BEAN SNAPPER Diagnoses care, first in first trimester (HCC) Nuchal/OB Procedures OFFICE/OUTPATIENT ESTABLISHED LOW MDM 20 MIN EST [facility] OB Lalita Moncada APRN.CNM [address] [place] [address] Phone: tel: fax: Patsy Sapp MD [address] [place] [address] Phone: tel: fax: Referral ID Status Reason Start Date Expiration Date V isits Requested Visits Authorized [id number] Authorized 01/18/2025 11/05/2025 99 99 Reason Comments US Specialty Diagnoses / Procedures Referred By Contac t Referred To Contact [facility] Diagnoses with uncertain dates in first trimester (HCC) care, first in first trimester (HCC) Procedures OBSTETRIC ULTRASOUND WHI US PREG UTERUS AFTER 1ST TRIMEST GESTATION Lalita Moncada APRN.CN [address] [place] [address] Phone: tel: fax: [facility] [address] [place] [address] Referral ID Status Reason Start Date Expiration Date Visits Requested Visits Authorized [id number] Authorized Auto-Generated Referral Financial Clearance Required - International Insurance 11/05/2025 99 99 Reason Onset Date Comments Care 03/17/2025 Specialty Diagnoses / Procedures Referred By Contac t Referred To Contact Swing Saw Operator / BEAN SNAPPER Diagnoses Encounter for supervision of normal , unspecified, first trimester (HCC) Encounter for supervision of low-risk first in first trimester (HCC) OB Procedures OFFICE/OUTPATIENT ESTABLISHED SF MDM 10 MIN EST [facility] OB Self Jina Escalera MD [address] [place] [address] Phone: tel: fax: Referral ID Status Reason Start Date Expiration Date V isits Requested Visits Authorized [id number] Authorized 01/31/2025 11/05/2025 99 99 Referral ID Status Reason Start Date Expiration Date Visits Requested Visits Authorized [id number] Authorized Auto-Generated Referral Financial Clearance Required - International Insurance Patient Cleared - [employer] Approved 11/05/2025 99 99 Reason Onset Date Comments Care 04/04/2025 Specialty Diagnoses / Procedures Referred By Contac t Referred To Contact Swing Saw Operator / BEAN SNAPPER Diagnoses Encounter for supervision of normal first , first trimester (HCC) Encounter for supervision of normal , unspecified, first trimester (HCC) Anatomy/OB Procedures OFFICE/OUTPATIENT ESTABLISHED SF MDM 10 MIN EST [facility] OB Lalita [facility]cada [facility]N.[facility] [address] [place] [address] Phone: tel: fax: Yon Carrero MD [address] [place] [address] Phone: tel: fax: Referral ID Status Reason Start Date Expiration Date Visits Requested Visits Authorized [id number] Authorized Financial Clearance Required - International Insurance Patient Cleared - [employer] Approved 11/05/2025 99 99 Reason Onset Date Comments Care 05/16/2025 Specialty Diagnoses / Procedures Referred By Contac t Referred To Contact Swing Saw Operator / BEAN SNAPPER Diagnoses Encounter for supervision of low-risk first in second trimester (HCC) OB Procedures OFFICE/OUTPATIENT ESTABLISHED SF MDM 10 MIN EST [facility] OB Self Jina Escalera MD [address] [place] [address] Phone: tel: fax: Referral ID Status Reason Start Date Expiration Date V isits Requested Visits Authorized [id number] Authorized 01/31/2025 11/05/2025 99 99 Reason Onset Date Comments Care 05/30/2025 Specialty Diagnoses / Procedures Referred By Contac t Referred To Contact Swing Saw Operator / BEAN SNAPPER Diagnoses Encounter for supervision of low-risk first in second trimester (HCC) Glucose Test /OB Procedures OFFICE/OUTPATIENT ESTABLISHED SF MDM 10 MIN EST [facility] OB Self Yon Carrero MD [address] [place] [address] Phone: tel: fax: Referral ID Status Reason Start Date Expiration Date V isits Requested Visits Authorized [id number] Authorized 01/31/2025 11/05/2025 99 99 Reason Onset Date Comments Care 06/19/2025 Specialty Diagnoses / Procedures Referred By Contac t Referred To Contact Swing Saw Operator / BEAN SNAPPER Diagnoses Encounter for supervision of low-risk first in second trimester (HCC) OB Procedures OFFICE/OUTPATIENT ESTABLISHED SF MDM 10 MIN EST I OB Self Vida Nunn MD [address] [place] [address] Phone: tel: fax: Referral ID Status Reason Start Date Expiration Date V isits Requested Visits Authorized [id number] Authorized 01/31/2025 11/05/2025 99 99 INFORMATION SOURCE (unrecogn ized section and content) DATE CREATED AUTHOR 05/30/2025 [facility] DATE CREATED AUTHOR AUTHOR'S REA ATION 08/17/2025 [facility] FOR RECORDS PERTAINING TO PATIENTS WHO ARE OR HAVE BEEN ENROLLED IN A CHEMICAL DEPENDENCY/SUBSTANCEABUSE PROGRAM, SOME INFORMATION MAY BE OMITTED. This clinical summary was aggregated from multiple sources. Caution should be exercised in using it in the provision of clinical care. This summary normalizes information from multiple sources, and as a consequence, information in this document may materially change the coding, format and clinical context of patient data. In addition, data may be omitted in some cases. CLINICAL DECISIONS SHOULD BE BASED ON THE PRIMARY CLINICAL RECORDS. [employer] provides no warranty or guarantee of the accuracy or completeness of information in this document.
[2025-09-03 19:27] VITALS: BMI 31.4
--- OUTSIDE RECORDS SUMMARY | 2025-09-03 19:31 | XMS RPT_ITS | CCD ---
Author Organization [facility] Care Team Providers Care Boom Operator Name Role Phone Unavailable Primary Care Provider [...] Drug Allergy 01-17-2025 GI Upset [facility] Medications Current Medications Medication Drug [...] 7 days. 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 Other inflammatory condition of skin (1 source) Arthropathic psoriasis, unspecified; Translations: [Psoriatic arthritis ([facility])] Onset: 08-09-2025 Chronic Other inflammatory condition of [...] of ; Translations: [18 weeks gestation of ([facility])] Onset: 04-04-2025 Episodic Residual codes; unclassified (1 source) 16 weeks gestation of ; Translations: [16 weeks gestation of ([facility])] Onset: 03-17-2025 Episodic Residual codes; unclassified (1 source) 12 weeks gestation of ; Translations: [12 weeks gestation of ([facility])] Onset: 02-17-2025 Episodic Viral infection (12 sources) Oral herpes simplex infection; Translations: [Herpesviral gingivostomatitis and pharyngotonsillitis] Onset: 02-17-2025 02-17-2025 Episodic Results Test Name Value Interpretation Reference Range Facil ity CBC panel Auto (Bld)on 08-10 Erythrocyte distribution width (RBC) [Ratio] 13.5 % Normal 11.5-15.0 [facility] Comment on above: Order Comment: Speci men Type: BLOOD SPECIMEN Ordering Facility: [facility] Address: [address] [place] [address] Performed By: #### 5 8410-2 #### [id number] [address] [place] [address] [place] Hematocrit (Bld) [Volume fraction] 40.3 % Normal 36.0-46.0 [facility] Comment on above: Order Comment: Speci men Type: BLOOD SPECIMEN Ordering Facility: [facility] Address: [address] [place] [address] Performed By: #### 5 8410-2 #### [facility] [id number] [address] [place] [address] [place] Hemoglobin (Bld) [Mass/Vol] 14.0 g/dL Normal 11.5-15.5 [facility] Comment on above: Order Comment: Speci men Type: BLOOD SPECIMEN Ordering Facility: [facility] Address: [address] [place] [address] Performed By: #### 5 8410-2 #### [facility] [id number] [address] [place] [address] [place] MCH (RBC) [Entitic mass] 30.6 pg Normal 26.0-34.0 [facility] Comment on above: Order Comment: Speci men Type: BLOOD SPECIMEN Ordering Facility: [facility] Address: [address] [place] [address] Performed By: #### 5 8410-2 #### [facility] [id number] [address] [place] [address] [place] MCHC (RBC) [Mass/Vol] 34.7 g/dL Normal 30.5-36.0 [facility] Comment on above: Order Comment: Speci men Type: BLOOD SPECIMEN Ordering Facility: [facility] Address: [address] [place] [address] Performed By: #### 5 8410-2 #### [facility] [id number] [address] [place] [address] [place] MCV (RBC) [Entitic vol] 88.0 fL Normal 80.0-100.0 [facility] Comment on above: Order Comment: Speci men Type: BLOOD SPECIMEN Ordering Facility: [facility] Address: [address] [place] [address] Performed By: #### 5 8410-2 #### [facility] CLIA [id number] [address] [place] [address] [place] Nucleated RBC (Bld) [#/Vol] 10*3/uL Normal <0.01 [facility] Comment on above: Order Comment: Speci men Type: BLOOD SPECIMEN Ordering Facility: [facility] Address: [address] [place] [address] Performed By: #### 5 8410-2 #### [facility] CLIA [id number] [address] [place] [address] [place] Platelet mean volume (Bld) [Entitic vol] 11.3 fL Normal 9.0-12.7 [facility] Comment on above: Order Comment: Speci men Type: BLOOD SPECIMEN Ordering Facility: [facility] Address: [address] [place] [address] Performed By: #### 5 8410-2 #### [facility] CLIA [id number] [address] [place] [address] [place] Platelets (Bld) [#/Vol] 154 10*3/uL Normal 150-400 [facility] Comment on above: Order Comment: Speci men Type: BLOOD SPECIMEN Ordering Facility: [facility] Address: [address] [place] [address] Performed By: #### 5 8410-2 #### [facility] CLIA [id number] [address] [place] [address] [place] RBC (Bld) [#/Vol] 4.58 10*6/uL Normal 3.90-5.20 [facility] Comment on above: Order Comment: Speci men Type: BLOOD SPECIMEN Ordering Facility: [facility] Address: [address] [place] [address] Performed By: #### 5 8410-2 #### [facility] [id number] [address] [place] [address] [place] WBC (Bld) [#/Vol] 7.85 10*3/uL Normal 3.70-11.00 [facility] Comment on above: Order Comment: Speci men Type: BLOOD SPECIMEN Ordering Facility: [facility] Address: [address] [place] [address] Performed By: #### 5 8410-2 #### [facility] [id number] [address] [place] [address] OF [place] CNOVon 08-10-2025 CNOV Office Visit (RHWSTR ) CHEMA BARBOSA ([id number]) 1990 F INT Date Time Provider Department 08/10/25 10:30 AM PINA MAGANA RHWSTR During your visit today, we recorded the following information about you: Pulse Respiration Blood pressure 117/minute 17/minute 131/89 Pina Magana PA-C 08/10/2025 5:14 PM Signed Rheumatology FOLLOW UP VISIT Date of Service: 08/10/2025 Patient: Chema Barbosa Medical Record: [id number] Primary Care Physician: No primary care provider [...] August 03, prescribed by her ENT at [facility]. She reports significant improvement in joint pain [...] Take 1 tablet by mouth once daily. NO.445-QJFH-EEPHS-DHA ORAL Take 1 tablet by mouth once [...] 9 Creati (more content not included)... Normal [facility] Comprehensive metabolic 2000 panelon 08-10-2025 Albumin [Mass/Vol] 3.7 g/dL Low 3.9-4.9 [facility] Comment on above: Order Comment: Speci men Type: BLOOD SPECIMEN Ordering Facility: [facility] Address: [address] [place] [id number] Performed By: #### 5 8410-2 #### [facility] CLIA [id number] [address] [place] [address] [place] ALP [Catalytic activity/Vol] 125 U/L High 34-123 [facility] Comment on above: Order Comment: Speci men Type: BLOOD SPECIMEN Ordering Facility: [facility] Address: [address] [place] [address] Performed By: #### 5 8410-2 #### [facility] CLIA [id number] [address] [place] [address] [place] ALT [Catalytic activity/Vol] 18 U/L Normal 7-38 [facility] Comment on above: Order Comment: Speci men Type: BLOOD SPECIMEN Ordering Facility: [facility] Address: [address] [place] [address] Performed By: #### 5 8410-2 #### [facility] CLIA [id number] [address] [place] [address] [place] Anion gap [Moles/Vol] 12 mmol/L Normal 8-15 [facility] Comment on above: Order Comment: Speci men Type: BLOOD SPECIMEN Ordering Facility: [facility] Address: [address] [place] [address] Performed By: #### 5 8410-2 #### [facility] CLIA [id number] [address] [place] [address] [place] AST [Catalytic activity/Vol] 15 U/L Normal 13-35 [facility] Comment on above: Order Comment: Speci men Type: BLOOD SPECIMEN Ordering Facility: [facility] Address: [facility] [place] [address] Performed By: #### 5 8410-2 #### [facility] CLIA [id number] [address] [place] [address] [place] Bilirubin [Mass/Vol] 0.4 mg/dL Normal 0.2-1.3 [facility] Comment on above: Order Comment: Speci men Type: BLOOD SPECIMEN Ordering Facility: [facility] Address: [address] [place] [address] Performed By: #### 5 8410-2 #### [facility] CLIA [id number] [address] [place] [address] [place] Calcium [Mass/Vol] 9.8 mg/dL Normal 8.5-10.2 [facility] Comment on above: Order Comment: Speci men Type: BLOOD SPECIMEN Ordering Facility: [facility] Address: [address] [place], [place] [address] Performed By: #### 5 8410-2 #### [facility] CLIA [id number] [address] [place] [address] [place] Chloride [Moles/Vol] 105 mmol/L Normal 98-107 [facility] Comment on above: Order Comment: Speci men Type: BLOOD SPECIMEN Ordering Facility: [facility] Address: [address] [place] [address] Performed By: #### 5 8410-2 #### [facility] CLIA [id number] [address] [place] [address] [place] CO2 [Moles/Vol] 18 mmol/L Low 22-30 [facility] Comment on above: Order Comment: Speci men Type: BLOOD SPECIMEN Ordering Facility: [facility] Address: [address] [place] [address] Performed By: #### 5 8410-2 #### [facility] CLIA [id number] [address] [place] [address] [place] Creatinine [Mass/Vol] 0.65 mg/dL Normal 0.58-0.96 [facility] Comment on above: Order Comment: Speci men Type: BLOOD SPECIMEN Ordering Facility: [facility] Address: [address] [place] [address] Performed By: #### 5 8410-2 #### [facility] [id number] [address] [place] [address] [place] eGFRcr SerPlBld CKD-EPI 2020 119 mL/min/1.73m??? Normal >=60 [facility] Comment on above: Order Comment: Eric fierro Type: BLOOD SPECIMEN Ordering Facility: [facility] Address: [address] [place] [address] Result Comment: Rosa mated Glomerular Filtration Rate [...] GFR. Performed By: #### 5 8410-2 #### [facility] CLIA [id number] [address] [place] [address] [place] Glucose [Mass/Vol] 105 mg/dL High 74-99 [facility] Comment on above: Order Comment: Eric fierro Type: BLOOD SPECIMEN Ordering Facility: [facility] Address: [address] [place] [address] Result Comment: The [place] [employer] (ADA) provides guidance for cutoff [...] Standards of Medical Care in Diabetes 2016, [place] [employer]. Diabetes Care. 2016.39(Suppl 1). Performed By: #### 5 8410-2 #### [facility] CLIA [id number] [address] [place] [address] [place] Potassium [Moles/Vol] 4.2 mmol/L Normal 3.7-5.1 [facility] Comment on above: Order Comment: Speci men Type: BLOOD SPECIMEN Ordering Facility: [facility] Address: [address] [place] [address] Performed By: #### 5 8410-2 #### [facility] CLIA [id number] [address] [place] [address] [place] Protein [Mass/Vol] 6.6 g/dL Normal 6.3-8.0 [facility] Comment on above: Order Comment: Speci men Type: BLOOD SPECIMEN Ordering Facility: [facility] Address: [address] [place] [address] Performed By: #### 5 8410-2 #### [facility] [id number] [address] [place] [address] [place] Sodium [Moles/Vol] 135 mmol/L Low 136-144 [facility] Comment on above: Order Comment: Speci men Type: BLOOD SPECIMEN Ordering Facility: [facility] Address: [address] [place] [address] Performed By: #### 5 8410-2 #### [facility] [id number] [address] [place] [address] [place] Urea nitrogen [Mass/Vol] 9 mg/dL Normal 7-21 [facility] Comment on above: Order Comment: Speci men Type: BLOOD SPECIMEN Ordering Facility: [facility] Address: [address] [place] [address] Performed By: #### 5 8410-2 #### [facility] CLIA [id number] [address] [place] [address] [place] ROUTINE, GROUP B ST REPTOCOCCUS BY PCRon 08-03-2025 ROUTINE, GROUP B STREPTOCOCCUS BY PCR Not detected Normal [facility] Comment on above: Performed By: #### G LTGST #### [facility] CLIA [id number] [address] [place] [address] [place] CBC W Auto Differential pane l (Bld)on 07-20-2025 Basophils (Bld) [#/Vol] 10*3/uL Normal <0.11 [facility] Comment on above: Order Comment: Speci men Type: BLOOD SPECIMEN Ordering Facility: [facility] Address: [address] [place] [address] Performed By: #### 5 7021-8 #### [facility] CLIA [id number] [address] [place] [address] [place] Basophils/100 WBC (Bld) 0.2 % Normal [facility] Comment on above: Order Comment: Speci men Type: BLOOD SPECIMEN Ordering Facility: [facility] Address: [address] [place] [address] Performed By: #### 5 7021-8 #### [facility] CLIA [id number] [address] [place] [address] [place] Differential cell count method Nom (Bld) Auto Normal [facility] Comment on above: Order Comment: Speci men Type: BLOOD SPECIMEN Ordering Facility: [facility] Address: [address] [place] [address] Performed By: #### 5 7021-8 #### [facility] CLIA [id number] [address] [place] [address] [place] Eosinophils (Bld) [#/Vol] 0.04 10*3/uL Normal <0.46 [facility] Comment on above: Order Comment: Speci men Type: BLOOD SPECIMEN Ordering Facility: [facility] Address: [address] [place] [address] Performed By: #### 5 7021-8 #### [facility] CLIA [id number] [address] [place] [address] [place] Eosinophils/100 WBC (Bld) 0.5 % Normal [facility] Comment on above: Order Comment: Speci men Type: BLOOD SPECIMEN Ordering Facility: [facility] Address: [address] [place] [address] Performed By: #### 5 7021-8 #### [facility] CLIA [id number] [address] [place] [address] [place] Erythrocyte distribution width (RBC) [Ratio] 13.2 % Normal 11.5-15.0 [facility] Comment on above: Order Comment: Speci men Type: BLOOD SPECIMEN Ordering Facility: [facility] Address: [address] [place] [address] Performed By: #### 5 7021-8 #### [facility] [id number] [address] [place] [address] [place] Hematocrit (Bld) [Volume fraction] 38.6 % Normal 36.0-46.0 [facility] Comment on above: Order Comment: Speci men Type: BLOOD SPECIMEN Ordering Facility: [facility] Address: [address] [place] [address] Performed By: #### 5 7021-8 #### [facility] [id number] [address] [place] [address] [place] Hemoglobin (Bld) [Mass/Vol] 13.8 g/dL Normal 11.5-15.5 [facility] Comment on above: Order Comment: Speci men Type: BLOOD SPECIMEN Ordering Facility: [facility] Address: [address] [place] [address] Performed By: #### 5 7021-8 #### [facility] CLIA [id number] [address] [place] [address] [place] Immature granulocytes (Bld) [#/Vol] 0.11 10*3/uL High <0.10 [facility] Comment on above: Order Comment: Speci men Type: BLOOD SPECIMEN Ordering Facility: [facility] Address: [address] [place] [address] Performed By: #### 5 7021-8 #### [facility] CLIA [id number] [address] [place] [address] [place] Immature granulocytes/100 WBC (Bld) 1.3 % Normal [facility] Comment on above: Order Comment: Speci men Type: BLOOD SPECIMEN Ordering Facility: [facility] Address: [address] [place] [address] Performed By: #### 5 7021-8 #### [facility] [id number] [address] [place] [address] [place] Lymphocytes (Bld) [#/Vol] 0.92 10*3/uL Low 1.00-4.00 [facility] Comment on above: Order Comment: Speci men Type: BLOOD SPECIMEN Ordering Facility: [facility] Address: [address] [place] [address] Performed By: #### 5 7021-8 #### [facility] [id number] [address] [place] [address] [place] Lymphocytes/100 WBC (Bld) 10.9 % Normal [facility] Comment on above: Order Comment: Speci men Type: BLOOD SPECIMEN Ordering Facility: [facility] Address: [address] [place] [address] Performed By: #### 5 7021-8 #### [facility] [id number] [address] [place] [address] [place] MCH (RBC) [Entitic mass] 30.9 pg Normal 26.0-34.0 [facility] Comment on above: Order Comment: Speci men Type: BLOOD SPECIMEN Ordering Facility: [facility] Address: [address] [place] [address] Performed By: #### 5 7021-8 #### [facility] CLIA [id number] [address] [place] [address] [place] MCHC (RBC) [Mass/Vol] 35.8 g/dL Normal 30.5-36.0 [facility] Comment on above: Order Comment: Speci men Type: BLOOD SPECIMEN Ordering Facility: [facility] Address: [address] [place] [address] Performed By: #### 5 7021-8 #### [facility] CLIA [id number] [address] [place] [address] [place] MCV (RBC) [Entitic vol] 86.4 fL Normal 80.0-100.0 [facility] Comment on above: Order Comment: Speci men Type: BLOOD SPECIMEN Ordering Facility: [facility] Address: [address] [place] [address] Performed By: #### 5 7021-8 #### [facility] CLIA [id number] [address] [place] [address] [place] Monocytes (Bld) [#/Vol] 0.62 10*3/uL Normal <0.87 [facility] Comment on above: Order Comment: Speci men Type: BLOOD SPECIMEN Ordering Facility: [facility] Address: [address] [place] [address] Performed By: #### 5 7021-8 #### [facility] CLIA [id number] [address] [place] [address] [place] Monocytes/100 WBC (Bld) 7.3 % Normal [facility] Comment on above: Order Comment: Speci men Type: BLOOD SPECIMEN Ordering Facility: [facility] Address: [address] [place] [address] Performed By: #### 5 7021-8 #### [facility] CLIA [id number] [address] [place] [address] [place] Neutrophils (Bld) [#/Vol] 6.73 10*3/uL Normal 1.45-7.50 [facility] Comment on above: Order Comment: Speci men Type: BLOOD SPECIMEN Ordering Facility: [facility] Address: [address] [place] [address] Performed By: #### 5 7021-8 #### [facility] CLIA [id number] [address] [place] [address] [place] Neutrophils/100 WBC (Bld) 79.8 % Normal [facility] Comment on above: Order Comment: Speci men Type: BLOOD SPECIMEN Ordering Facility: [facility] Address: [address] [place] [address] Performed By: #### 5 7021-8 #### [facility] [id number] [address] [place] [address] [place] Nucleated RBC (Bld) [#/Vol] 10*3/uL Normal <0.01 [facility] Comment on above: Order Comment: Speci men Type: BLOOD SPECIMEN Ordering Facility: [facility] Address: [address] [place] [address] Performed By: #### 5 7021-8 #### [facility] [id number] [address] [place] [address] [place] Nucleated RBC/100 WBC (Bld) [Ratio] 0.0 /100 WBC Normal [facility] Comment on above: Order Comment: Speci men Type: BLOOD SPECIMEN Ordering Facility: [facility] Address: [address] [place] [address] Performed By: #### 5 7021-8 #### [facility] [id number] [address] [place] [address] [place] Platelet mean volume (Bld) [Entitic vol] 11.7 fL Normal 9.0-12.7 [facility] Comment on above: Order Comment: Speci men Type: BLOOD SPECIMEN Ordering Facility: [facility] Address: [address] [place] [address] [place] [address] Performed By: #### 5 7021-8 #### [facility] CLIA [id number] [address] [place] [address] [place] Platelets (Bld) [#/Vol] 161 10*3/uL Normal 150-400 [facility] Comment on above: Order Comment: Speci men Type: BLOOD SPECIMEN Ordering Facility: [facility] Address: [address] [place], [place] [address] Performed By: #### 5 7021-8 #### [facility] CLIA [id number] [address] [place] [address] [place] RBC (Bld) [#/Vol] 4.47 10*6/uL Normal 3.90-5.20 [facility] Comment on above: Order Comment: Speci men Type: BLOOD SPECIMEN Ordering Facility: [facility] Address: [address] [place], [place] [address] Performed By: #### 5 7021-8 #### [facility] CLIA [id number] [address] [place] [address] [place] WBC (Bld) [#/Vol] 8.44 10*3/uL Normal 3.70-11.00 [facility] Comment on above: Order Comment: Speci men Type: BLOOD SPECIMEN Ordering Facility: [facility] Address: [address] [place], [place] [address] Performed By: #### 5 7021-8 #### [facility] CLIA [id number] [address] [place] [address] [place] Comprehensive metabolic 2000 panelon 07-20-2025 Albumin [Mass/Vol] 3.7 g/dL Low 3.9-4.9 [facility] Comment on above: Order Comment: Speci men Type: FLUID SPECIMEN Ordering Facility: [facility] Address: [address] [place], [place] [address] Performed By: #### L [id number] #### [facility] CLIA [id number] [address] [place], [place] [address] [place] ALP [Catalytic activity/Vol] 107 U/L Normal 34-123 [facility] Comment on above: Order Comment: Speci men Type: FLUID SPECIMEN Ordering Facility: [facility] Address: [address] [place] [address] Performed By: #### L [id number] #### [facility] CLIA [id number] [address] [place] [address] [place] ALT [Catalytic activity/Vol] 36 U/L Normal 7-38 [facility] Comment on above: Order Comment: Speci men Type: FLUID SPECIMEN [facility] [facility] Address: [address] [place] [address] Performed By: #### L [id number] #### [facility] CLIA [id number] [address] [place] [address] [place] Anion gap [Moles/Vol] 13 mmol/L Normal 8-15 [facility] Comment on above: Order Comment: Speci men Type: FLUID SPECIMEN Ordering Facility: [facility] Address: [address] [place] [address] Performed By: #### L [id number] #### [facility] CLIA [id number] [address] [place] [address] [place] AST [Catalytic activity/Vol] 27 U/L Normal 13-35 [facility] Comment on above: Order Comment: Speci men Type: FLUID SPECIMEN Ordering Facility: [facility] Address: [address] [place], [place] [address] Performed By: #### L [id number] #### [facility] CLIA [id number] [address] [place] [address] [place] Bilirubin [Mass/Vol] 0.4 mg/dL Normal 0.2-1.3 [facility] Comment on above: Order Comment: Speci men Type: FLUID SPECIMEN Ordering Facility: [facility] Address: [address] [place] [address] Performed By: #### L [id number] #### [facility] CLIA [id number] [address] [place] [address] [place] Calcium [Mass/Vol] 9.4 mg/dL Normal 8.5-10.2 [facility] Comment on above: Order Comment: Speci men Type: FLUID SPECIMEN Ordering Facility: [facility] Address: [address] [place] [address] Performed By: #### L [id number] #### [facility] CLIA [id number] [address] [place] [address] [place] Chloride [Moles/Vol] 105 mmol/L Normal 98-107 [facility] Comment on above: Order Comment: Speci men Type: FLUID SPECIMEN Ordering Facility: [facility] Address: [address] [place] [address] Performed By: #### L [id number] #### [facility] CLIA [id number] [address] [place] [address] [place] CO2 [Moles/Vol] 17 mmol/L Low 22-30 [facility] Comment on above: Order Comment: Speci men Type: FLUID SPECIMEN Ordering Facility: [facility] Address: [address] [place] [address] Performed By: #### L [id number] #### [facility] CLIA [id number] [address] [place] [address] [place] Creatinine [Mass/Vol] 0.60 mg/dL Normal 0.58-0.96 [facility] Comment on above: Order Comment: Speci men Type: FLUID SPECIMEN Ordering Facility: [facility] Address: [address] [place] [address] Performed By: #### L [id number] #### [facility] CLIA [id number] [address] [place], [place] [address] [place] eGFRcr SerPlBld CKD-EPI 2020 122 mL/min/1.73m??? Normal >=60 [facility] Comment on above: Order Comment: Eric fierro Type: FLUID SPECIMEN Ordering Facility: [facility] Address: [address] [place] [address] Result Comment: Rosa mated Glomerular Filtration Rate [...] reflect actual GFR. Performed By: #### L [id number] #### [facility] CLIA [id number] [address] [place] [address] [place] Glucose [Mass/Vol] 138 mg/dL High 74-99 [facility] Comment on above: Order Comment: Eric fierro Type: FLUID SPECIMEN Ordering Facility: [facility] Address: [address] [place] [address] Result Comment: The [place] Diabetes Association (ADA) provides guidance for cutoff [...] Standards of Medical Care in Diabetes 2016, [place] Diabetes Association. Diabetes Care. 2016.39(Suppl 1). Performed By: #### L [id number] #### [facility] CLIA [id number] [address] [place] [address] [place] Potassium [Moles/Vol] 4.1 mmol/L Normal 3.7-5.1 [facility] Comment on above: Order Comment: Speci men Type: FLUID SPECIMEN Ordering Facility: [facility] Address: [address] [place] [address] Performed By: #### L [id number] #### [facility] CLIA [id number] [address] [place] [address] [place] Protein [Mass/Vol] 6.6 g/dL Normal 6.3-8.0 [facility] Comment on above: Order Comment: Speci men Type: FLUID SPECIMEN Ordering Facility: [facility] Address: [address] [place] [address] Performed By: #### L [id number] #### [facility] CLIA [id number] [address] [place] [address] [place] Sodium [Moles/Vol] 135 mmol/L Low 136-144 [facility] Comment on above: Order Comment: Speci men Type: FLUID SPECIMEN Ordering Facility: [facility] Address: [address] [place] [address] Performed By: #### L [id number] #### [facility] CLIA [id number] [address] [place] [address] [place] Urea nitrogen [Mass/Vol] 5 mg/dL Low 7-21 [facility] Comment on above: Order Comment: Speci men Type: FLUID SPECIMEN Ordering Facility: [facility] Address: [address] [place] [address] Performed By: #### L [id number] #### [facility] CLIA [id number] [address] [place] [address] [place] CNCOon 07-06-2025 CNCO Letter Text Normal [facility] VALENTIN BY IFA SCREENon 07-05-20 25 Nuclear Ab Ql (S) Negative Normal Negative [facility] Comment on above: Order Comment: Speci men Type: BLOOD SPECIMEN Ordering Facility: [facility] Address: [address] [place] [address] Result Comment: Anti -nuclear antibody test is used as an aid in diagnosis of systemic autoimmune diseases. Where positive and clinically warranted, follow-up using disease-specific testing is recommended. Low positive titers are not uncommon with advanced age, certain chronic infections, and malignancies among others. Test methodology: Indirect fluorescence immunoassay (IFA) using HEp-2 cells. Performed By: #### 5 8410-2 #### [facility] CLIA [id number] [address] [place] [address] CNOVon 07-05-2025 CNOV Office Visit (RHWSTR ) CHEMA BARBOSA ([id number]) 1990 F INT Date Time Provider Department 07/05/25 11:00 AM PINA MAGANA WSTR During your visit today, we recorded the following information about you: Pulse Respiration Blood pressure Weight 96/minute 17/minute 108/74 82.1 kg Pina Magana PA-C 07/05/2025 12:44 PM Signed Rheumatology CONSULTATION Date of Service: 07/05/2025 Patient: Chema Barbosa Medical Record: [id number] Primary Care Physician: No primary care provider on file. Last Rheumatology visit: None at [facility] Referring Provider: Yon Jackson [place] [phone] Chema Barbosa is here today at request of Dr. Carrero specifically for consultation of my opinion in regards to the chief complaint listed below. Correspondence will be shared today via the [facility] electronic health record or through regular mail, where applicable. Recording using Yatedo software for draft documentation of the visit was discussed with the patient/authorized customer service representative teller; all questions welcomed and answered. Patient/authorized customer service representative teller agreed to proceed History of Present Illness [...] for which she has been using an bqeq-qjo-fiahjmn brace continuously for 6 weeks without improvement. [...] was diagnosed with seborrheic dermatitis by a loan analyst at [employer] and was initially treated with Head and [...] Onset Hype (more content not included)... Normal [facility] CRP SerPl-ncon 07-05-2025 CRP [Mass/Vol] mg/L Normal <0.9 [facility] Comment on above: Order Comment: Eric fierro Type: FLUID SPECIMEN Ordering Facility: [facility] Address: [address] [place] [address] Performed By: #### L [id number] #### [facility] CLIA [id number] [address] [place] [address] [place] Cyclic citrullinated peptide IgG Qnon 07-05-2025 CCP ANTIBODY IGG QUALITATIVE Negative Normal Negative [facility] Comment on above: Order Comment: Eric fierro Type: FLUID SPECIMEN Ordering Facility: [facility] Address: [address] [place] [address] Performed By: #### L [id number] #### [facility] CLIA [id number] [address] [place] [address] [place] ESR Westergren method (Bld) [Velocity]on 07-05-2025 ESR (Bld) [Velocity] 15 mm/h Normal 0-20 [facility] Comment on above: Order Comment: Eric fierro Type: FLUID SPECIMEN Ordering Facility: [facility] Address: [address] [place] [address] Performed By: #### L [id number] #### [facility] CLIA [id number] [address] [place] [address] [place] Rheumatoid fact SerPl-aCncon 07-05-2025 Rheumatoid factor Qn [IU]/mL Normal <16 [facility] Comment on above: Order Comment: Speci men Type: FLUID SPECIMEN Ordering Facility: [facility] Address: [address] [place] [address] Performed By: #### L [id number] #### [facility] CLIA [id number] [address] [place] [address] [place] cCP IgG SerPl-aCncon 025 Cyclic citrullinated peptide IgG Qn <15 Normal <20 [facility] Comment on above: Order Comment: Speci men Type: FLUID SPECIMEN Ordering Facility: [facility] Address: [address] [place] [address] Performed By: #### L [id number] #### [facility] CLIA [id number] [address] [place] [address] [place] CBC W Auto Differential pane l (Bld)on 05-30-2025 Basophils (Bld) [#/Vol] 0.03 10*3/uL Normal <0.11 [facility] Comment on above: Order Comment: Speci men Type: BLOOD SPECIMEN Ordering Facility: [facility] Address: [address] [place] [address] Performed By: #### 5 8410-2 #### [facility] CLIA [id number] [address] [place] [address] [place] Basophils/100 WBC (Bld) 0.4 % Normal [facility] Comment on above: Order Comment: Speci men Type: BLOOD SPECIMEN Ordering Facility: [facility] Address: [address] [place] [address] Performed By: #### 5 8410-2 #### [facility] CLIA [id number] [address] [place] [address] [place] Differential cell count method Nom (Bld) Auto Normal [facility] Comment on above: Order Comment: Speci men Type: BLOOD SPECIMEN Ordering Facility: [facility] Address: [address] [place] [address] Performed By: #### 5 8410-2 #### [facility] CLIA [id number] [address] [place] [address] [place] Eosinophils (Bld) [#/Vol] 0.07 10*3/uL Normal <0.46 [facility] Comment on above: Order Comment: Speci men Type: BLOOD SPECIMEN Ordering Facility: [facility] Address: [address] [place] [address] Performed By: #### 5 8410-2 #### [facility] CLIA [id number] [address] [place] [address] [place] Eosinophils/100 WBC (Bld) 0.9 % Normal [facility] Comment on above: Order Comment: Speci men Type: BLOOD SPECIMEN Ordering Facility: [facility] Address: [address] [place] [address] Performed By: #### 5 8410-2 #### [facility] CLIA [id number] [address] [place] [address] [place] Erythrocyte distribution width (RBC) [Ratio] 12.6 % Normal 11.5-15.0 [facility] Comment on above: Order Comment: Speci men Type: BLOOD SPECIMEN Ordering Facility: [facility] Address: [address] [place] [address] Performed By: #### 5 8410-2 #### [facility] CLIA [id number] [address] [place] [address] [place] Hematocrit (Bld) [Volume fraction] 37.1 % Normal 36.0-46.0 [facility] Comment on above: Order Comment: Speci men Type: BLOOD SPECIMEN Ordering Facility: [facility] Address: [address] [place] [address] Performed By: #### 5 8410-2 #### [facility] CLIA [id number] [address] [place] [address] [place] Hemoglobin (Bld) [Mass/Vol] 12.6 g/dL Normal 11.5-15.5 [facility] Comment on above: Order Comment: Speci men Type: BLOOD SPECIMEN Ordering Facility: [facility] Address: [address] [place] [address] Performed By: #### 5 8410-2 #### [facility] CLIA [id number] [address] [place] [address] [place] Immature granulocytes (Bld) [#/Vol] 0.08 10*3/uL Normal <0.10 [facility] Comment on above: Order Comment: Speci men Type: BLOOD SPECIMEN Ordering Facility: [facility] Address: [address] [place] [address] Performed By: #### 5 8410-2 #### [facility] CLIA [id number] [address] [place] [address] [place] Immature granulocytes/100 WBC (Bld) 1.1 % Normal [facility] Comment on above: Order Comment: Speci men Type: BLOOD SPECIMEN Ordering Facility: [facility] Address: [address] [place] [address] Performed By: #### 5 8410-2 #### [facility] CLIA [id number] [address] [place] [address] [place] Lymphocytes (Bld) [#/Vol] 1.31 10*3/uL Normal 1.00-4.00 [facility] Comment on above: Order Comment: Speci men Type: BLOOD SPECIMEN Ordering Facility: [facility] Address: [address] [place] [address] Performed By: #### 5 8410-2 #### [facility] CLIA [id number] [address] [place] [address] [place] Lymphocytes/100 WBC (Bld) 17.4 % Normal [facility] Comment on above: Order Comment: Speci men Type: BLOOD SPECIMEN Ordering Facility: [facility] Address: [address] [place] [address] Performed By: #### 5 8410-2 #### [facility] CLIA [id number] [address] [place] [address] [place] MCH (RBC) [Entitic mass] 30.7 pg Normal 26.0-34.0 [facility] Comment on above: Order Comment: Speci men Type: BLOOD SPECIMEN Ordering Facility: [facility] Address: [address] [place] [address] Performed By: #### 5 8410-2 #### [facility] CLIA [id number] [address] [place] [address] [place] MCHC (RBC) [Mass/Vol] 34.0 g/dL Normal 30.5-36.0 [facility] Comment on above: Order Comment: Speci men Type: BLOOD SPECIMEN Ordering Facility: [facility] Address: [address] [place] [address] Performed By: #### 5 8410-2 #### [facility] CLIA [id number] [address] [place] [address] [place] MCV (RBC) [Entitic vol] 90.5 fL Normal 80.0-100.0 [facility] Comment on above: Order Comment: Speci men Type: BLOOD SPECIMEN Ordering Facility: [facility] Address: [address] [place] [address] Performed By: #### 5 8410-2 #### [id number] [address] [place] [address] [place] Monocytes (Bld) [#/Vol] 0.53 10*3/uL Normal <0.87 [facility] Comment on above: Order Comment: Speci men Type: BLOOD SPECIMEN Ordering Facility: [facility] Address: [address] [place] [address] Performed By: #### 5 8410-2 #### [facility] CLIA [id number] [address] [place] [address] [place] Monocytes/100 WBC (Bld) 7.0 % Normal [facility] Comment on above: Order Comment: Speci men Type: BLOOD SPECIMEN Ordering Facility: [facility] Address: [address] [place] [address] Performed By: #### 5 8410-2 #### [facility] CLIA [id number] [address] [place] [address] [place] Neutrophils (Bld) [#/Vol] 5.51 10*3/uL Normal 1.45-7.50 [facility] Comment on above: Order Comment: Speci men Type: BLOOD SPECIMEN Ordering Facility: [facility] Address: [address] [place] [address] Performed By: #### 5 8410-2 #### [facility] CLIA [id number] [address] [place] [address] [place] Neutrophils/100 WBC (Bld) 73.2 % Normal [facility] Comment on above: Order Comment: Speci men Type: BLOOD SPECIMEN Ordering Facility: [facility] Address: [address] [place] [address] Performed By: #### 5 8410-2 #### [facility] CLIA [id number] [address] [place] [address] [place] Nucleated RBC (Bld) [#/Vol] 10*3/uL Normal <0.01 [facility] Comment on above: Order Comment: Speci men Type: BLOOD SPECIMEN Ordering Facility: [facility] Address: [address] [place] [address] Performed By: #### 5 8410-2 #### [facility] CLIA [id number] [address] [place] [address] [place] Nucleated RBC/100 WBC (Bld) [Ratio] 0.0 /100 WBC Normal [facility] Comment on above: Order Comment: Speci men Type: BLOOD SPECIMEN Ordering Facility: [facility] Address: [address] [place] [address] Performed By: #### 5 8410-2 #### [facility] CLIA [id number] [address] [place] [address] [place] Platelet mean volume (Bld) [Entitic vol] 10.7 fL Normal 9.0-12.7 [facility] Comment on above: Order Comment: Speci men Type: BLOOD SPECIMEN Ordering Facility: [facility] Address: [address] [place] [address] Performed By: #### 5 8410-2 #### [facility] CLIA [id number] [address] [place] [address] [place] Platelets (Bld) [#/Vol] 174 10*3/uL Normal 150-400 [facility] Comment on above: Order Comment: Speci men Type: BLOOD SPECIMEN Ordering Facility: [facility] Address: [address] [place] [address] Performed By: #### 5 8410-2 #### [facility] CLIA [id number] [address] [place] [address] [place] RBC (Bld) [#/Vol] 4.10 10*6/uL Normal 3.90-5.20 [facility] Comment on above: Order Comment: Speci men Type: BLOOD SPECIMEN Ordering Facility: [facility] Address: [address] [place] [address] Performed By: #### 5 8410-2 #### [facility] CLIA [id number] [address] [place] [address] [place] WBC (Bld) [#/Vol] 7.53 10*3/uL Normal 3.70-11.00 [facility] Comment on above: Order Comment: Speci men Type: BLOOD SPECIMEN Ordering Facility: [facility] Address: [address] [place] [address] Performed By: #### 5 8410-2 #### [facility] CLIA [id number] [address] [place] [address] [place] GESTATIONAL GLUCOSE SCREEN, 1-HOUR, 50 GRAM, NON-FASTINGon 05-30-2025 Glucose [Mass/Vol] 122 mg/dL Normal 74-134 [facility] Comment on above: Order Comment: Eric men Type: BLOOD SPECIMEN Ordering Facility: [facility] Address: [address] [place] [address] Result Comment: [facility] Congress of Obstetricians and Gynecologists (Camacho/Joie) guidelines state a gestational diabetes mellitus positive screen is made, in women not previously diagnosed with overt diabetes, when the 1 hr plasma glucose level is equal to or above 140 mg/dL. The [facility] Travel Registered Nurse [facility] [place] recommends a 135 mg/dL cutoff. Performed By: #### G LTGST #### [facility] [id number] [address] [place] [address] [place] Reagin and Treponema pallidu m IgG and IgM [Interp]on 05-30-2025 T. pallidum IgG+IgM IA Ql (S) Non-Reactive Normal Nonreactive [facility] Comment on above: Order Comment: Speci men Type: BLOOD SPECIMEN Ordering Facility: [facility] Address: [address] [place], [place] [id number] Performed By: #### 5 8410-2 #### [facility] CLIA [id number] [address] [place] [address] [place] Reagin+T pallidum IgG+IgM Se rPl-Impon 05-30-2025 Reagin and Treponema pallidum IgG and IgM [Interp] Cannot exclude recent Treponemal infection if specimen collected within 7-10 days after appearance of suspect lesions or 2-3 weeks after an exposure. Clinical correlation is required. Normal [facility] Comment on above: Order Comment: Speci men Type: BLOOD SPECIMEN Ordering Facility: [facility] Address: [facility] [address] Performed By: #### 5 8410-2 #### [facility] CLIA [id number] [address] [place] [address] [place] Examination level ultrasound [...] 9 oz EFW by: [employer] (HC-AC-FL) Extended Human Relations Teacher 5.7 mm CM 4.7 mm 49% Nicolaides [...] normal LVOT view: normal 3-vessel view: normal 0-fsrexy-kblyitf view: normal Heart / Thorax Situs: situs [...] Tonya Marquez M.D. MATERNAL MEDICINE [facility] Radiology Study observation (narrative) [facility] BACTERIAL VAGINOSIS NAATon 0 02-17-2025 Lactobacillus crispatus+gasseri+je nsenii + Gardnerella vaginalis + Atopobium vaginae rRNA TOMAS+probe Ql (Vag fld) Not detected Normal Not detected [facility] Comment on above: Order Comment: Speci men Type: BLOOD SPECIMEN Ordering Facility: [facility] Address: [address] [place] [address] Performed By: #### G LTGST #### [facility] CLIA [id number] [address] [place] [address] [place] PAKO/TRICHOMONAS NAATon 0 02-17-2025 C. glabrata RNA TOMAS+probe Ql (Vag fld) Not detected Normal Not detected [facility] Comment on above: Order Comment: Speci men Type: BLOOD SPECIMEN Ordering Facility: [facility] Address: [address] [place] [address] Performed By: #### G LTGST #### [facility] CLIA [id number] [address] [place] [address] STATES [facility] Pako sp DNA TOMAS+probe Ql (Vag fld) Not detected Normal Not detected [facility] Comment on above: Order Comment: Speci men Type: BLOOD SPECIMEN Ordering Facility: [facility] Address: [address] [place] [address] Result Comment: The Pako species group target includes C. albicans, C. tropicalis, C. parapsilosis, and C. dubliniensis. Performed By: #### G LTGST #### [facility] CLIA [id number] [address] [place] [address] [place] T. vaginalis DNA TOMAS+probe Ql (Unsp spec) Not detected Normal Not detected [facility] Comment on above: Order Comment: Speci men Type: BLOOD SPECIMEN Ordering Facility: [facility] Address: [address] [place] [address] Performed By: #### G LTGST #### [facility] CLIA [id number] [address] [place] [address] [place] CBC W Auto Differential pane l (Bld)on 02-17-2025 Basophils (Bld) [#/Vol] 10*3/uL Normal <0.11 [facility] Comment on above: Order Comment: Speci men Type: BLOOD SPECIMEN Ordering Facility: [facility] Address: [address] [place] [address] Performed By: #### 5 8410-2 #### [facility] CLIA [id number] [address] [place] [address] [place] Basophils/100 WBC (Bld) 0.3 % Normal [facility] Comment on above: Order Comment: Speci men Type: BLOOD SPECIMEN Ordering Facility: [facility] Address: [address] [place] [address] Performed By: #### 5 8410-2 #### [facility] CLIA [id number] [address] [place] [address] [place] Differential cell count method Nom (Bld) Auto Normal [facility] Comment on above: Order Comment: Speci men Type: BLOOD SPECIMEN Ordering Facility: [facility] Address: [facility] [place] [address] Performed By: #### 5 8410-2 #### [facility] CLIA [id number] [address] [place] [address] [place] Eosinophils (Bld) [#/Vol] 0.05 10*3/uL Normal <0.46 [facility] Comment on above: Order Comment: Speci men Type: BLOOD SPECIMEN Ordering Facility: [facility] Address: [address] [place] [address] Performed By: #### 5 8410-2 #### [facility] CLIA [id number] [address] [place] [address] [place] Eosinophils/100 WBC (Bld) 0.8 % Normal [facility] Comment on above: Order Comment: Speci men Type: BLOOD SPECIMEN Ordering Facility: [facility] Address: [address] [place] [address] Performed By: #### 5 8410-2 #### [facility] CLIA [id number] [address] [place] [address] [place] Erythrocyte distribution width (RBC) [Ratio] 12.2 % Normal 11.5-15.0 [facility] Comment on above: Order Comment: Speci men Type: BLOOD SPECIMEN Ordering Facility: [facility] Address: [address] [place] [address] Performed By: #### 5 8410-2 #### [facility] [id number] [address] [place] [address] [place] Hematocrit (Bld) [Volume fraction] 39.6 % Normal 36.0-46.0 [facility] Comment on above: Order Comment: Speci men Type: BLOOD SPECIMEN Ordering Facility: [facility] Address: [address] [place] [address] Performed By: #### 5 8410-2 #### [facility] CLIA [id number] [address] [place] [address] [place] Hemoglobin (Bld) [Mass/Vol] 13.7 g/dL Normal 11.5-15.5 [facility] Comment on above: Order Comment: Speci men Type: BLOOD SPECIMEN Ordering Facility: [facility] Address: [address] [place] [address] Performed By: #### 5 8410-2 #### [facility] CLIA [id number] [address] [place] [address] [place] Immature granulocytes (Bld) [#/Vol] 10*3/uL Normal <0.10 [facility] Comment on above: Order Comment: Speci men Type: BLOOD SPECIMEN Ordering Facility: [facility] Address: [address] [place] [address] Performed By: #### 5 8410-2 #### [facility] CLIA [id number] [address] [place] [address] [place] Immature granulocytes/100 WBC (Bld) 0.3 % Normal [facility] Comment on above: Order Comment: Speci men Type: BLOOD SPECIMEN Ordering Facility: [facility] Address: [address] [place], [place] [address] Performed By: #### 5 8410-2 #### [facility] CLIA [id number] [address] [place] [address] [place] Lymphocytes (Bld) [#/Vol] 1.17 10*3/uL Normal 1.00-4.00 [facility] Comment on above: Order Comment: Speci men Type: BLOOD SPECIMEN Ordering Facility: [facility] Address: [address] [place], [place] [address] Performed By: #### 5 8410-2 #### [facility] CLIA [id number] [address] [place] [address] [place] Lymphocytes/100 WBC (Bld) 19.3 % Normal [facility] Comment on above: Order Comment: Speci men Type: BLOOD SPECIMEN Ordering Facility: [facility] Address: [address] [place] [address] Performed By: #### 5 8410-2 #### [facility] CLIA [id number] [address] [place] [address] [place] MCH (RBC) [Entitic mass] 30.0 pg Normal 26.0-34.0 [facility] Comment on above: Order Comment: Speci men Type: BLOOD SPECIMEN Ordering Facility: [facility] Address: [address] [place] [address] Performed By: #### 5 8410-2 #### [facility] CLIA [id number] [address] [place] [address] [place] MCHC (RBC) [Mass/Vol] 34.6 g/dL Normal 30.5-36.0 [facility] Comment on above: Order Comment: Speci men Type: BLOOD SPECIMEN Ordering Facility: [facility] Address: [address] [place] [address] Performed By: #### 5 8410-2 #### [facility] CLIA [id number] [address] [place] [address] [place] MCV (RBC) [Entitic vol] 86.8 fL Normal 80.0-100.0 [facility] Comment on above: Order Comment: Speci men Type: BLOOD SPECIMEN Ordering Facility: [facility] Address: [address] [place] [address] Performed By: #### 5 8410-2 #### [facility] CLIA [id number] [address] [place] [address] [place] Monocytes (Bld) [#/Vol] 0.38 10*3/uL Normal <0.87 [facility] Comment on above: Order Comment: Speci men Type: BLOOD SPECIMEN Ordering Facility: [facility] Address: [address] [place] [address] Performed By: #### 5 8410-2 #### [facility] CLIA [id number] [address] [place] [address] [place] Monocytes/100 WBC (Bld) 6.3 % Normal [facility] Comment on above: Order Comment: Speci men Type: BLOOD SPECIMEN Ordering Facility: [facility] Address: [address] [place] [address] Performed By: #### 5 8410-2 #### [facility] CLIA [id number] [address] [place] [address] [place] Neutrophils (Bld) [#/Vol] 4.43 10*3/uL Normal 1.45-7.50 [facility] Comment on above: Order Comment: Speci men Type: BLOOD SPECIMEN Ordering Facility: [facility] Address: [address] [place] [address] Performed By: #### 5 8410-2 #### [facility] CLIA [id number] [address] [place] [address] [place] Neutrophils/100 WBC (Bld) 73.0 % Normal [facility] Comment on above: Order Comment: Speci men Type: BLOOD SPECIMEN Ordering Facility: [facility] Address: [address] [place] [address] Performed By: #### 5 8410-2 #### [facility] CLIA [id number] [address] [place] [address] [place] Nucleated RBC (Bld) [#/Vol] 10*3/uL Normal <0.01 [facility] Comment on above: Order Comment: Speci men Type: BLOOD SPECIMEN Ordering Facility: [facility] Address: [address] [place] [address] Performed By: #### 5 8410-2 #### [facility] CLIA [id number] [address] [place] [address] [place] Nucleated RBC/100 WBC (Bld) [Ratio] 0.0 /100 WBC Normal [facility] Comment on above: Order Comment: Speci men Type: BLOOD SPECIMEN Ordering Facility: [facility] Address: [address] [place] [address] Performed By: #### 5 8410-2 #### [facility] CLIA [id number] [address] [place] [address] [place] Platelet mean volume (Bld) [Entitic vol] 10.0 fL Normal 9.0-12.7 [facility] Comment on above: Order Comment: Speci men Type: BLOOD SPECIMEN Ordering Facility: [facility] Address: [address] [place] [address] Performed By: #### 5 8410-2 #### [facility] CLIA [id number] [address] [place] [address] [place] Platelets (Bld) [#/Vol] 196 10*3/uL Normal 150-400 [facility] Comment on above: Order Comment: Speci men Type: BLOOD SPECIMEN Ordering Facility: [facility] Address: [address] [place] [address] Performed By: #### 5 8410-2 #### [facility] [id number] [address] [place] [address] [place] RBC (Bld) [#/Vol] 4.56 10*6/uL Normal 3.90-5.20 [facility] Comment on above: Order Comment: Speci men Type: BLOOD SPECIMEN Ordering Facility: [facility] Address: [address] [place] [address] Performed By: #### 5 8410-2 #### [facility] CLIA [id number] [address] [place] [address] [place] WBC (Bld) [#/Vol] 6.07 10*3/uL Normal 3.70-11.00 [facility] Comment on above: Order Comment: Speci men Type: BLOOD SPECIMEN Ordering Facility: [facility] Address: [address] [place] [address] Performed By: #### 5 8410-2 #### [facility] CLIA [id number] [address] [place] [id number] [place] [facility] Examination level ultrasound on 02-17-2025 Indication First trimester anatomic survey Impression The patient is referred for a first trimester anatomy scan including nuchal translucency measurement as clinically indicated. - Single, live, intrauterine . - [place] rump length measurement is consistent with the [...] view: normal 4-chamber view with color: normal 6-gylyuu-djrlypf view: normal Abdominal cord insertion: normal Stomach: [...] Tonya Marquez M.D. MATERNAL MEDICINE [facility] Radiology Study observation (narrative) [facility] HBV surface Ag Ser [facility] 02-02 HBV surface Ag Ql (S) Negative Normal Negative [facility] Comment on above: Order Comment: Speci men Type: BLOOD SPECIMEN Ordering Facility: [facility] Address: [address] [place] [address] Performed By: #### G LTGST #### [facility] CLIA [id number] [address] [place] [address] [place] HCV Ab Ser Qlon 02-17-2025 HCV Ab Ql (S) Negative Normal Negative [facility] Comment on above: Order Comment: Speci men Type: FLUID SPECIMEN Ordering Facility: [facility] Address: [address] [place] [address] Result Comment: The result suggests no evidence of infection with Hepatitis C virus. Should recent infection be suspected, repeat testing may be considered 4-6 weeks after this draw. Performed By: #### L [id number] #### [facility] CLIA [id number] [address] [place] [address] [place] HIV 1+2 Ab IA Qlon HIV 1 and 2 Ab IA.rapid Nom (S/P/Bld) Normal [facility] Comment on above: Order Comment: Speci men Type: BLOOD SPECIMEN Ordering Facility: [facility] Address: [address] [place] [address] Result Comment: Test not indicated. Performed By: #### G LTGST #### [facility] CLIA [id number] [address] [place] [address] [place] HIV 1+2 Ab+HIV1 p24 Ag IA Ql Non-Reactive Normal Nonreactive [facility] Comment on above: Order Comment: Speci men Type: BLOOD SPECIMEN Ordering Facility: [facility] Address: [address] [place] [address] Performed By: #### G LTGST #### [facility] [id number] [address] [place] [address] [place] HIV immunoassay testing algorithm interpretation (S/P/Bld) [Interp] Normal [facility] Comment on above: Order Comment: Speci men Type: BLOOD SPECIMEN Ordering Facility: [facility] Address: [address] [place] [address] Result Comment: No e vidence of HIV-1 or HIV-2 infection. Should recent infection be suspected, repeat testing may be considered 2-3 weeks after this draw. [place] Rev. Code 3701.243(E): This information has been [...] diagnoses. Performed By: #### G LTGST #### [facility] [id number] [address] [place] [address] [place] HbA1c (Bld)on 02-17-2025 Average glucose Estimated from glycated hemoglobin (Bld) [Mass/Vol] 85 mg/dL Normal [facility] Comment on above: Order Comment: Speci men Type: BLOOD SPECIMEN Ordering Facility: [facility] Address: [address] [place] [address] Result Comment: eAG: (Estimated average glucose) is a calculated value from HgbA1c and is customer service representative teller of the average blood glucose level in the last 2-3 month period. Performed By: #### 5 8410-2 #### [facility] [id number] [address] [place] [address] [place] HbA1c (Bld) [Mass fraction] 4.6 % Normal 4.3-5.6 [facility] Comment on above: Order Comment: Speci men Type: BLOOD SPECIMEN Ordering Facility: [facility] Address: [address] [place] [address] Result Comment: Amer ican Diabetes Association guidelines indicate that patients with HgbA1c in the range 5.7-6.4% are at increased risk for development of diabetes, and intervention by lifestyle modification may be beneficial. HgbA1c greater or equal to 6.5% is considered diagnostic of diabetes. Performed By: #### 5 8410-2 #### [facility] [id number] [address] [place] [address] [place] [id number] PLUSon 02-17-2025 Cell-free DNA./Cell-free DNA.total Dosage of chromosome-specific cfDNA (cfDNA) [Molar fraction] 18% Normal [facility] Comment on above: Order Comment: Speci men Type: BLOOD SPECIMEN Ordering Facility: [facility] Address: [address] [place] [address] Performed By: #### G LTGST #### [facility] [id number] [address] [place] [address] [place] Chr 13+18+21+X+Y aneuploidy Dosage of chromosome-specific cfDNA Ql (cfDNA) Negative Normal [facility] Comment on above: Order Comment: Speci men Type: BLOOD SPECIMEN Ordering Facility: [facility] Address: [address] [place] [address] Performed By: #### G LTGST #### [facility] CLIA [id number] [address] [place] [address] [place] Chr 21 trisomy Dosage of chromosome-specific cfDNA Ql (cfDNA) Negative Normal [facility] Comment on above: Order Comment: Eric fierro Type: BLOOD SPECIMEN Ordering Facility: [facility] Address: [address] [place] [address] Performed By: #### G LTGST #### [facility] CLIA [id number] [address] [place] [address] [place] Chr X and Y aneuploidy risk Sequencing Ql (cfDNA) [Interp] Not detected Normal [facility] Comment on above: Order Comment: Eric fierro Type: BLOOD SPECIMEN Ordering Facility: [facility] Address: [address] [place] [address] Result Comment: Not Detected Not Detected Performed By: #### G LTGST #### [facility] CLIA [id number] [address] [place] [address] [place] Citation Dustin (Reference lab test) Comment Normal [facility] Comment on above: Order Comment: Eric fierro Type: BLOOD SPECIMEN Ordering Facility: [facility] Address: [address] [place] [address] Result Comment: 1. P aislinn BEAULIEU et al. Jennifer Med. 2012;14(3):296-305. 2. Ronnie RAPP, et al. Prenat Diag. 2013;33(6):591-597. 3. Cristhian C, et al. Clin Chem. 2015 Apr;61(4):608-616. 4. Earlene BEAULIEU, et al. Jennifer Med. 2011;13(11):913-920. 5. ACOG/SMFM Practice Bulletin No. 226, Jul 2020. Performed By: #### G LTGST #### [facility] CLIA [id number] [address] [place] [address] [place] Gestational age Estimated from conception date Mazariegos Normal [facility] Comment on above: Order Comment: Eric fierro Type: BLOOD SPECIMEN Ordering Facility: [facility] Address: [address] [place] [address] Performed By: #### G LTGST #### [facility] CLIA [id number] [address] [place] [address] STATES [facility] GESTATIONALAGE AGE > OR = 9W Yes Normal [facility] Comment on above: Order Comment: Eric fierro Type: BLOOD SPECIMEN Ordering Facility: [facility] Address: [address] [place] [address] Performed By: #### G LTGST #### [facility] CLIA [id number] [address] [place] [address] OF [facility] Laboratory comment Dustin (Report) Comment Normal [facility] Comment on above: Order Comment: Eric fierro Type: BLOOD SPECIMEN Ordering Facility: [facility] Address: [address] [place] [address] Result Comment: The MaterniT(R) 21 PLUS laboratory-developed test (LDT) analyzes circulating cell-free DNA from a maternal blood sample. This test is used for screening purposes and not diagnostic. Clinical correlation is recommended. Validation data on twin pregnancies is limited and the ability of this test to detect aneuploidy in higher multiple gestations has not yet been validated. Performed By: #### G LTGST #### [facility] CLIA [id number] [address] [place] [address] director of student aid name Nom (Provider) Comment Normal [facility] Comment on above: Order Comment: Eric fierro Type: BLOOD SPECIMEN Ordering Facility: [facility] Address: [address] [place] [address] Result Comment: This specimen showed an expected representation of chromosome 21, 18 and 13 material. Clinical correlation is suggested. Comment Osmin Colby MD, PhD, Director, [employer] Performed By: #### G LTGST #### [facility] CLIA [id number] [address] [place] [address] LIMITATIONS OF THE TEST Comment Normal [facility] Comment on above: Order Comment: Eric fierro Type: BLOOD SPECIMEN Ordering Facility: [facility] Address: [address] [place] [address] Result Comment: Clifton becerra the results of [...] Fragmin(R)). Performed By: #### G LTGST #### [facility] CLIA [id number] [address] [place] [address] STATES [facility] Monosomy X risk Dosage of chromosome-specific cfDNA Ql (Plasma cell-free+WBC DNA) [Interp] Not detected Normal [facility] Comment on above: Order Comment: Eric fierro Type: BLOOD SPECIMEN Ordering Facility: [facility] Address: [address] [place] [address] Performed By: #### G LTGST #### [facility] [id number] [address] [place] [address] NEGATIVE PREDICTIVE VALUE Note Normal [facility] Comment on above: Order Comment: Eric fierro Type: BLOOD SPECIMEN Ordering Facility: [facility] Address: [address] [place] [address] Result Comment: The Negative Predictive Value (NPV) for trisomy 21, 18, and 13 is greater than 99%. The NPV for SCA and ESS cannot be calculated as SCA and ESS are only reported when an abnormality is detected. Performed By: #### G LTGST #### [facility] [id number] [address] [place] [address] PERFORMANCE CHARACTERISTICS Note Normal [facility] Comment on above: Order Comment: Eric fierro Type: BLOOD SPECIMEN Ordering Facility: [facility] Address: [address] [place] [address] Result Comment: ! Sex ! Accuracy: 99.4% [...] only. Performed By: #### G LTGST #### [facility] CLIA [id number] [address] [place] [address] [place] POSITIVE PREDICTIVE VALUE N/A Normal [facility] Comment on above: Order Comment: Speci men Type: BLOOD SPECIMEN Ordering Facility: [facility] Address: [address] [place] [address] Performed By: #### G LTGST #### [facility] CLIA [id number] [address] [place] [address] [place] Reference Lab Test Method Comment Normal [facility] Comment on above: Order Comment: Speci men Type: BLOOD SPECIMEN Ordering Facility: [facility] Address: [address] [place] [address] Result Comment: See Notes Circulating cell-free DNA [...] 22. Performed By: #### G LTGST #### [facility] CLIA [id number] [address] [place] [address] [place] Service comment (Unsp spec) [Interp] Comment Normal [facility] Comment on above: Order Comment: Speci men Type: BLOOD SPECIMEN Ordering Facility: [facility] Address: [address] [place] [address] Result Comment: See Notes [employer] is a subsidiary of [employer], using the brand [employer]. This test was developed and its performance characteristics determined by [employer]. It has not been cleared or approved by the Food and Drug Administration. This laboratory is certified under the Clinical Laboratory Improvement Amendments (CLIA) as qualified to perform high complexity clinical laboratory testing and accredited by the [employer] ([employer]). If there is future clinical need for adding MaterniT GENOME testing, this specimen will be available until term. [facility] samples will not be retained beyond 60 days. [facility] patients will have to send a new sample for re-sequencing ([facility] Test Code: [id number]). Performed By: #### G LTGST #### [facility] CLIA [id number] [address] [place] [address] [place] Sex Dosage of chromosome-specific cfDNA Nom (cfDNA) Comment Normal [facility] Comment on above: Order Comment: Speci men Type: BLOOD SPECIMEN Ordering Facility: [facility] Address: [address] [place] [address] Result Comment: Cons istent with Male Performed By: #### G LTGST #### [facility] [id number] [address] [place] [address] [place] Test performance information Dustin (Unsp spec) Comment Normal [facility] Comment on above: Order Comment: Speci men Type: BLOOD SPECIMEN Ordering Facility: [facility] Address: [address] [place] [address] Result Comment: The performance characteristics of the MaterniT(R) 21 PLUS laboratory-developed test (LDT) have been determined in a clinical validation study with women at increased risk for chromosomal aneuploidy.[1-4] Performed By: #### G LTGST #### [facility] [id number] [address] [place] [address] [place] Trisomy 13 risk Dosage of chromosome-specific cfDNA Ql (cfDNA) [Interp] Negative Normal [facility] Comment on above: Order Comment: Speci men Type: BLOOD SPECIMEN Ordering Facility: [facility] Address: [address] [place] [address] Performed By: #### G LTGST #### [facility] CLIA [id number] [address] [place] [address] [place] Trisomy 18 risk Dosage of chromosome-specific cfDNA Ql (Plasma cell-free+WBC DNA) [Interp] Negative Normal [facility] Comment on above: Order Comment: Eric fierro Type: BLOOD SPECIMEN Ordering Facility: [facility] Address: [address] [place] [address] Performed By: #### G LTGST #### [facility] CLIA [id number] [address] [place] [address] [place] RUBELLA IGG ANTIBODYon 02-17 RUBELLA IGG AB, QUAL Positive Normal Positive [facility] Comment on above: Order Comment: Eric fierro Type: BLOOD SPECIMEN Ordering Facility: [facility] Address: [address] [place] [address] Result Comment: The result suggests recent or past exposure to Rubella virus or history of Rubella vaccination. Positive result may also be seen due to presence of passively-transferred antibodies. Please correlate with patient's history. Performed By: #### 5 8410-2 #### [facility] CLIA [id number] [address] [place] [address] [place] Reagin and Treponema pallidu m IgG and IgM [Interp]on 02-17-2025 T. pallidum IgG+IgM IA Ql (S) Non-Reactive Normal Nonreactive [facility] Comment on above: Order Comment: Shielai sri Type: BLOOD SPECIMEN Ordering Facility: [facility] Address: [address] [place] [address] Performed By: #### G LTGST #### [facility] CLIA [id number] [address] [place] [address] [place] Reagin+T pallidum IgG+IgM Se rPl-Impon 02-17-2025 Reagin and Treponema pallidum IgG and IgM [Interp] Cannot exclude recent Treponemal infection if specimen collected within 7-10 days after appearance of suspect lesions or 2-3 weeks after an exposure. Clinical correlation is required. Normal [facility] Comment on above: Order Comment: Speci men Type: BLOOD SPECIMEN Ordering Facility: [facility] Address: [address] [place] [address] Performed By: #### G LTGST #### [facility] CLIA [id number] [address] [place] [address] [place] TYPE + SCREEN PRENATALon ABO A Normal [facility] Comment on above: Order Comment: Speci men Type: BLOOD SPECIMEN Ordering Facility: [facility] Address: [address] [place] [address] Performed By: #### T SPN #### [facility] CLIA [id number] [address] [place] [address] [place] Rh Nom (Bld) Positive Normal [facility] Comment on above: Order Comment: Speci men Type: BLOOD SPECIMEN Ordering Facility: [facility] Address: [address] [place] [address] Performed By: #### T SPN #### [facility] CLIA [id number] [address] [place] [address] [place] TYPE AND SCREEN EXPIRATION 02/20/2025 23:59 Normal [facility] Comment on above: Order Comment: Speci men Type: BLOOD SPECIMEN Ordering Facility: [facility] Address: [address] [place] [address] Performed By: #### T SPN #### [facility] CLIA [id number] [address] [place] [address] [place] Bacteria Ur Culton 5 Bacteria identified Cx Nom (U) ORGANISM ID: 1 10,000 -<50,000 CFU/ml Normal urogenital em Normal [facility] Comment on above: Performed By: #### G LTGST #### [facility] CLIA [id number] [address] [place] [address] [place] C. trachomatis+N. gonorrhoea e DNA TOMAS+probe Ql (Unsp spec)on 01-18-2025 C. trachomatis rRNA TOMAS+probe Ql (Unsp spec) Not detected Normal Not detected [facility] Comment on above: Order Comment: Speci men Type: BLOOD SPECIMEN Ordering Facility: [facility] Address: [address] [place] [address] Performed By: #### 5 8410-2 #### [facility] CLIA [id number] [address] [place] [address] [place] N. gonorrhoeae rRNA TOMAS+probe Ql (Unsp spec) Not detected Normal Not detected [facility] Comment on above: Order Comment: Speci men Type: BLOOD SPECIMEN Ordering Facility: [facility] Address: [address] [place] [address] Performed By: #### 5 8410-2 #### [facility] CLIA [id number] [address] [place] [address] [place] HIGH RISK HUMAN PAPILLOMA RONALD (HPV), PCR FOR DETECTION AND GENOTYPINGon 01-18-2025 HPV 16 Ag Ql (Unsp spec) Not detected Normal Not detected [facility] Comment on above: Order Comment: Speci men Type: BLOOD SPECIMEN Ordering Facility: [facility] Address: [address] [place] [address] Performed By: #### 5 8410-2 #### [facility] CLIA [id number] [address] [place] [address] [place] HPV 18 Ag Ql (Unsp spec) Not detected Normal Not detected [facility] Comment on above: Order Comment: Speci men Type: BLOOD SPECIMEN Ordering Facility: [facility] Address: [address] [place] [address] Performed By: #### 5 8410-2 #### [facility] CLIA [id number] [address] [place] [address] [place] HPV 31+33+35+39+45+51+52 +56+58+59+66+68 DNA TOMAS+probe Ql (Cvx) Not detected Normal Not detected [facility] Comment on above: Order Comment: Speci men Type: BLOOD SPECIMEN Ordering Facility: [facility] Address: [address] [place] [address] Result Comment: High Risk HPV Other Type includes HPV types 31, 33, 35, 39, 45, 51, 52, 56, 58, 59, 66 and 68. Performed By: #### 5 8410-2 #### [facility] CLIA [id number] [address] [place] [address] [place] PAP TESTon 01-18-2025 ADEQUACY Normal [facility] Comment on above: Order Comment: Speci men Type: FLUID SPECIMEN Ordering Facility: [facility] Address: [address] [place] [address] Result Comment: Sati sfactory for interpretation. No endocervical component Performed By: #### L [id number] #### [facility] CLIA [id number] [address] [place] [address] [place] CASE REPORT Normal [facility] Comment on above: Order Comment: Speci men Type: FLUID SPECIMEN Ordering Facility: [facility] Address: [address] [place] [address] Result Comment: Gyne cologic Cytology Report Case: [id number] Authorizing Provider: Lalita Moncada APRN.CNM Collected: 01/18/2025 01:57 PM Ordering Location: OB/Gynecology Received: 01/19/2025 08:19 AM First Screen: Gmitro, Armaan, CT, ASCP Specimen: Pap Test, ThinPrep, Cervix Performed By: #### L [id number] #### [facility] CLIA [id number] [address] [place] [address] [place] CLINICAL HISTORY, CYTOLOGY, BARREL COATER Routine Exam Normal [facility] Comment on above: Order Comment: Speci men Type: FLUID SPECIMEN Ordering Facility: [facility] Address: [address] [place] [address] Performed By: #### L [id number] #### [facility] CLIA [id number] [address] [place], [place] [id number] [place] FINAL PERFORMING LAB Normal [facility] Comment on above: Order Comment: Speci men Type: FLUID SPECIMEN Ordering Facility: [facility] Address: [address] [place] [address] Result Comment: Tech nical component, branch store manager screening performed at [facility], [address] [place] [address] [place] [address] CLIA# [id number] Diagnostic interpretation performed at [facility], [address] [place], [place] [id number] CLIA# [id number] Asphalt Distributor Operator: Joaqium Ramos M.D. Performed By: #### L [id number] #### [facility] CLIA [id number] [address] [place] [address] [place] INTERPRETATION, CYTOLOGY, BARREL COATER Normal [facility] Comment on above: Order Comment: Speci men Type: FLUID SPECIMEN Ordering Facility: [facility] Address: [address] [place] [address] Result Comment: Nega tive for intraepithelial lesion or malignancy. at 1018 EDT Performed By: #### L [id number] #### [facility] CLIA [id number] [address] [place], [place] [id number] [place] LMP 11/23/2024 Normal [facility] Comment on above: Order Comment: Speci men Type: FLUID SPECIMEN Ordering Facility: [facility] Address: [address] [place] [address] Performed By: #### L [id number] #### [facility] CLIA [id number] [address] [place], [place] [id number] [place] PAP DISCLAIMER COMMENT The Pap Smear is a screening test for cervical cancer. False negative results occur with all screening tests, emphasizing the need for rescreening at recommended intervals, and clinical correlation. Normal [facility] Comment on above: Order Comment: Speci men Type: FLUID SPECIMEN Ordering Facility: [facility] Address: [address] [place] [address] Performed By: #### L [id number] #### [facility] CLIA [id number] [address] [place] [address] [place] PAP DISPATCH CLERK COMMENT This specimen has be en analyzed by the ThinPrep Imaging System, an automated imaging and review system, which assists the laboratory in evaluating cells on ThinPrep Pap tests. Following automated imaging, selected zamorano from every slide are reviewed by a branch store manager. Normal [facility] Comment on above: Order Comment: Speci men Type: FLUID SPECIMEN Ordering Facility: [facility] Address: [address] [place] [address] Performed By: #### L [id number] #### [facility] CLIA [id number] [address] [place] [address] [place] TRICHOMONAS VAGINALIS NAATon 01-18-2025 T. vaginalis DNA TOMAS+probe Ql (Unsp spec) Not detected Normal Not detected [facility] Comment on above: Order Comment: Speci men Type: BLOOD SPECIMEN Ordering Facility: [facility] Address: [address] [place] [address] Performed By: #### 5 8410-2 #### [facility] CLIA [id number] [address] [place] [address] [place] Vital Signs Date Time Vital Sign Value Performing Clinician Faci lity 06-19-2025 10:43-0400 Body mass index (BMI) [Ratio] 28.6 kg/m2 Vida Nunn MD Work Phone: [facility] 06-19-2025 10:43-0400 Body weight 81.19 kg Vida Nunn MD Work Phone: [facility] 06-19-2025 10:43-0400 Diastolic blood pressure 72 mm[Hg] Vida Nunn MD Work Phone: [facility] 06-19-2025 10:43-0400 Systolic blood pressure 124 mm[Hg] Vida Nunn MD Work Phone: [facility] 05-30-2025 10:57-0400 Body mass index (BMI) [Ratio] 28.21 kg/m2 Yon Carrero MD Work Phone: [facility] 05-30-2025 10:57-0400 Body weight 80.11 kg Yon Carrero MD Work Phone: [facility] 05-30-2025 10:57-0400 Diastolic blood pressure 74 mm[Hg] Yon Carrero MD Work Phone: [facility] 05-30-2025 10:57-0400 Systolic blood pressure 120 mm[Hg] Yon Carrero MD Work Phone: [facility] 05-16-2025 11:10-0400 Body mass index (BMI) [Ratio] 27.64 kg/m2 Yon Carrero MD Work Phone: [facility] 05-16-2025 11:10-0400 Body weight 78.47 kg Yon Carrero MD Work Phone: [facility] 05-16-2025 11:10-0400 Diastolic blood pressure 70 mm[Hg] Yon Carrero MD Work Phone: [facility] 05-16-2025 11:10-0400 Systolic blood pressure 106 mm[Hg] Yon Carrero MD Work Phone: [facility] 04-04-2025 13:57-0400 Body mass index (BMI) [Ratio] 26.36 kg/m2 Yon Carrero MD Work Phone: [facility] 04-04-2025 13:57-0400 Body weight 74.84 kg Yon Carrero MD Work Phone: [facility] 04-04-2025 13:57-0400 Diastolic blood pressure 70 mm[Hg] Yon Carrero MD Work Phone: [facility] 04-04-2025 13:57-0400 Systolic blood pressure 114 mm[Hg] Yon Carrero MD Work Phone: [facility] 03-17-2025 12:56-0400 Body mass index (BMI) [Ratio] 25.82 kg/m2 Jina Escalera MD Work Phone: [facility] 03-17-2025 12:56-0400 Body weight 73.3 kg Jina Escalera MD Work Phone: [facility] 03-17-2025 12:56-0400 Diastolic blood pressure 80 mm[Hg] Jina Escalera MD Work Phone: [facility] 03-17-2025 12:56-0400 Systolic blood pressure 120 mm[Hg] Jina Escalera MD Work Phone: [facility] 02-17-2025 11:43-0400 Body mass index (BMI) [Ratio] 25.24 kg/m2 Patsy Sapp MD Work Phone: [facility] 02-17-2025 11:43-0400 Body weight 71.67 kg Patsy Sapp MD Work Phone: [facility] 02-17-2025 11:43-0400 Diastolic blood pressure 68 mm[Hg] Patsy Sapp MD Work Phone: [facility] 02-17-2025 11:43-0400 Systolic blood pressure 100 mm[Hg] Patsy Sapp MD Work Phone: [facility] 01-18-2025 13:03-0400 Body height 168.5 cm Lalita Moncada MEDICAID BILLER.CNM Work Phone: [facility] 01-18-2025 13:03-0400 Body mass index (BMI) [Ratio] 25.02 kg/m2 Lalita Moncada MEDICAID BILLER.CNM Work Phone: [facility] 01-18-2025 13:03-0400 Body weight 71.03 kg Lalita oMncada MEDICAID BILLER.CNM Work Phone: [facility] 01-18-2025 13:03-0400 Diastolic blood pressure 62 mm[Hg] Lalita Moncada MEDICAID BILLER.CNM Work Phone: [facility] 01-18-2025 13:030400 Systolic blood pressure 118 mm[Hg] Lalita Moncada MEDICAID BILLER.CNM Work Phone: [facility] Encounters Encounter Date Encounter Type Care Provider Facility Start: 08-30-2025 ambulatory Yon Carrero Facility:[facility] Start: 08-16-2025 End: 08-16-2025 ambulatory WESTLEY JOSE Facility:[facility] Start: 08-10-2025 End: 08-10-2025 ambulatory PINA CHINO Facility:[facility] Start: 08-10-2025 End: 08-10-2025 ambulatory PINA CHINO Facility:[facility] Start: 08-09-2025 End: 08-09-2025 ambulatory LALITA MONCADA Facility:[facility] Start: 08-03-2025 End: 08-03-2025 ambulatory PATSY SAPP Facility:[facility] Start: 07-20-2025 End: 07-20-2025 ambulatory PINA CHINO Facility:[facility] Start: 07-19-2025 End: 07-19-2025 ambulatory VIDA NUNN Facility:[facility] Start: 07-05-2025 End: 07-05-2025 ambulatory PINA CHINO Facility:[facility] Start: 07-05-2025 End: 07-05-2025 ambulatory PINA CHINO Facility:[facility] Start: 06-19-2025 End: 06-19-2025 Patient encounter procedure Vida Nunn MD Work Phone: OB/Gynecology Comment on above: Encounter for superv ision of low-risk first in second trimester (HCC) (Primary Dx); 29 weeks gestation of (HCC); Encounter for supervision of normal first in third trimester (HCC); Need for khabajdcbx-dgvzkyv-zzarzwzmv (Tdap) vaccine; Encounter for supervision of low-risk first in first trimester (HCC); Need for vaccination Start: 06-19-2025 End: 06-19-2025 ambulatory VIDA NUNN Facility:[facility] Start: 05-30-2025 End: 05-30-2025 Patient encounter procedure Yon Carrero MD Work Phone: OB/Gynecology Comment on above: 26 weeks gestation o f (HCC) (Primary Dx); Encounter for supervision of low-risk first in second trimester (HCC) Start: 05-30-2025 End: 05-30-2025 ambulatory SELF Facility:[facility] Start: 05-16-2025 End: 05-16-2025 Patient encounter procedure Yon Carrero MD Work Phone: OB/Gynecology Comment on above: Screening for diabet es mellitus (Primary Dx); 24 weeks gestation of (HCC); Encounter for supervision of low-risk first in second trimester (HCC); Arthralgia of both hands; Rash Start: 05-16-2025 End: 05-16-2025 ambulatory YON CARRERO Facility:[facility] Start: 04-04-2025 End: 04-04-2025 Patient encounter procedure Whi Tech 1 Preparation Plant Supervisor Mfm Wstr Mob Maternal Medicine Comment on above: Encounter for anatomic survey (HCC) (Primary Dx); 18 weeks gestation of (HCC) Encounter for superv ision of low-risk first in second trimester (HCC) (Primary Dx); 18 weeks gestation of (HCC); Constipation, unspecified constipation type Start: 04-04-2025 End: 04-04-2025 ambulatory YON CARRERO Facility:[facility] Start: 03-17-2025 End: 03-17-2025 Patient encounter procedure Jina Escalera MD Work Phone: OB/Gynecology Comment on above: 16 weeks gestation o f (HCC) (Primary Dx); Encounter for supervision of low-risk first in second trimester (HCC) Start: 03-17-2025 End: 03-17-2025 ambulatory JINA ESCALERA Facility:[facility] Start: 02-18-2025 End: 02-21-2025 Follow-up encounter Patsy Sapp MD Work Phone: OB/Gynecology Start: 02-17-2025 End: 02-17-2025 ambulatory LALITA MONCADA Facility:[facility] Start: 02-17-2025 End: 02-17-2025 Patient encounter procedure Patsy Sapp MD Work Phone: OB/Gynecology Comment on above: care, first in first trimester ([facility]) (Primary Dx); 12 weeks gestation of ([facility]); Oral herpes; Vaginal yeast infection Encounter for adela perry screening for malformation using ultrasound ([facility]) (Primary Dx); 12 weeks gestation of ([facility]) Start: 02-17-2025 End: 02-17-2025 ambulatory PATSY SAPP Facility:[facility] Start: 01-26-2025 End: 03-28-2025 Follow-up encounter Lalita Moncada APRN.CNM Work Phone: OB/Gynecology Start: 01-18-2025 End: 01-18-2025 Patient encounter procedure Lalita Moncada APRN.CNM Work Phone: OB/Gynecology Comment on above: with uncer tain dates in first trimester ([facility]) (Primary Dx); care, first in first trimester ([facility]); Screen for STD (sexually transmitted disease); Screening for cervical cancer; Special screening examination for human papillomavirus (HPV); Nausea; Encounter for supervision of low-risk first in first trimester ([facility]); Heart valve disorder Start: 01-18-2025 End: 01-18-2025 ambulatory LALITA MONCADA Facility:[facility] Procedures Date Procedure Procedure Detail Performing Clinician Start: 04-04-2025 Us preg uterus after 1st trimest 10/05 gestation Lalita Moncada APRN.CNM Work Phone: Start: 02-17-2025 Antibody screen PATSY BAUTISTA Comment on above: Order Comment: Speci men Type: BLOOD SPECIMEN Ordering Facility: [facility] Address: [address] [place] [address] Performed By: #### T SPN #### [facility] CLIA [id number] [address] [place] [address] [place] [address] [place] Start: 02-17-2025 Us preg uterus after 1st trimest 10/05 gestation Lalita Moncada APRN.AMELIE Work Phone: Plan of Treatment Date Care Activity Detail Author Start: 01-02-2067 RSV Vaccine (1 - 1-dose 75+ series) RSV Vaccine (1 - 1-dose 75+ series) [facility] Start: 06-19-2035 Urine microalbumin profile DTaP,Tdap,Td Vaccine (2 - Td or Tdap) [facility] Start: 01-18-2030 Screening for malignant neoplasm of cervix Cervical Cancer Screening [facility] Start: 07-19-2025 End: 07-19-2025 Patient encounter procedure 07/19/2025 11:20 AM EDT Routine Office Visit OB/Gynecology [address] [place] [address] Vida Nunn MD [address] [place], [place] [id number] OB OB/Gynecology Comment on above: OB Start: 07-05-2025 RSV Vaccine (1 - Ris k 1-dose series) RSV Vaccine (1 - Risk 1-dose series) [facility] Start: 07-05-2025 End: 07-05-2025 Patient encounter procedure Rheumatology Comment on above: Arthralgia of both h ands [M25.541, M25.542]; Rash [R21] OB Start: 06-19-2025 End: 06-19-2025 Patient encounter procedure 06/19/2025 10:40 AM EDT Routine Office Visit OB/Gynecology [address] [place] [address] Vida Nunn MD [address] [place] [address] OB OB/Gynecology Comment on above: OB Start: 06-05-2025 Influenza vaccination [facility] Start: 05-30-2025 End: 05-30-2025 Patient encounter procedure 05/30/2025 11:10 AM EDT Routine Office Visit OB/Gynecology [address] [place] [address] Yon Carrero MD [address] [place] [address] Glucose Test /OB OB/Gynecology Comment on above: Glucose Test /OB Start: 05-30-2025 End: 05-30-2025 ambulatory 05/30/2025 10:45 AM EDT Results Only [place] [facility] [address] [place] [address] Gl[facility] Comment on above: Glucose Test Start: 05-16-2025 End: 08-14-2025 ANEMIA REFLEX PANEL ANEMIA REFLEX PANEL Lab Routine 24 weeks gestation of ([facility]) Encounter for supervision of low-risk first in second trimester ([facility]) Expected: 05/16/2025, Expires: 08/14/2025 [facility] Comment on above: Expected: 05/16/2025 , Expires: 08/14/2025 Start: 05-16-2025 End: 05-16-2026 GESTATIONAL GLUCOSE SCREEN, 1-HOUR, 50 GRAM, NON-FASTING GESTATIONAL GLUCOSE SCREEN, 1-HOUR, 50 GRAM, NON-FASTING Lab Routine Screening for diabetes mellitus 24 weeks gestation of ([facility]) Encounter for supervision of low-risk first in second trimester ([facility]) Expected: 05/16/2025, Expires: 05/16/2026 [facility] Work Phone: Comment on above: Expected: 05/16/2025 , Expires: 05/16/2026 Start: 05-16-2025 End: 05-16-2026 SYPHILIS TREPONEMAL W/REFLEX SYPHILIS TREPONEMAL W/REFLEX Lab Routine 24 weeks gestation of ([facility]) Encounter for supervision of low-risk first in second trimester ([facility]) Expected: 05/16/2025, Expires: 05/16/2026 [facility] Comment on above: Expected: 05/16/2025 , Expires: 05/16/2026 Start: 05-02-2025 End: 05-02-2025 Patient encounter procedure 05/02/2025 11:10 AM EDT Routine Office Visit OB/Gynecology [address] [place] [address] Jina Escalera MD [address] [place] [address] OB OB/Gynecology Comment on above: OB Start: 04-04-2025 End: 04-04-2025 Patient encounter procedure Maternal Medicine Comment on above: Anatomy/OB Start: 03-17-2025 End: 03-17-2025 Patient encounter procedure 03/17/2025 1:10 PM EDT Routine Office Visit OB/Gynecology [address] [place] [address] Jina Escalera MD [address] [place] [address] OB OB/Gynecology Comment on above: OB Start: 02-17-2025 End: 05-19-2025 Chromosome 21 trisomy [Presence] in Blood or Tissue by Cytogenetics [facility] Work Phone: Comment on above: Expected: 02/17/2025 , Expires: 05/19/2025 Start: 02-17-2025 End: 02-17-2025 Patient encounter procedure Maternal Medicine Comment on above: Nuchal Nuchal/OB Start: 01-18-2025 End: 04-19-2025 ANEMIA REFLEX PANEL ANEMIA REFLEX PANEL Lab Routine with uncertain dates in first trimester (HCC) care, first in first trimester (HCC) Expected: 01/18/2025, Expires: 04/19/2025 [facility] Comment on above: Expected: 01/18/2025 , Expires: 04/19/2025 Start: 01-18-2025 End: 04-19-2025 Hemoglobin A1c in Blood HEMOGLOBIN A1C Lab Routine with uncertain dates in first trimester (HCC) care, first in first trimester (HCC) Expected: 01/18/2025, Expires: 04/19/2025 [facility] Comment on above: Expected: 01/18/2025 , Expires: 04/19/2025 Start: 01-18-2025 End: 04-19-2025 Hepatitis B virus surface Ag [Presence] in Serum HEPATITIS B SURFACE ANTIGEN Lab Routine with uncertain dates in first trimester (HCC) care, first in first trimester (HCC) Expected: 01/18/2025, Expires: 04/19/2025 [facility] Comment on above: Expected: 01/18/2025 , Expires: 04/19/2025 Start: 01-18-2025 End: 04-19-2025 Hepatitis C virus Ab [Presence] in Serum HEPATITIS C ANTIBODY IA WITH CONFIRMATION Lab Routine with uncertain dates in first trimester ([facility]) care, first in first trimester ([facility]) Expected: 01/18/2025, Expires: 04/19/2025 [facility] Comment on above: Expected: 01/18/2025 , Expires: 04/19/2025 Start: 01-18-2025 End: 04-19-2025 HIV 1+2 Ab [Presence] in Serum or Plasma by Immunoassay HIV 1/2 COMBO WITH REFLEX TO DIFFERENTIATION Lab Routine with uncertain dates in first trimester ([facility]) care, first in first trimester ([facility]) Expected: 01/18/2025, Expires: 04/19/2025 [facility] Comment on above: Expected: 01/18/2025 , Expires: 04/19/2025 Start: 01-18-2025 End: 01-18-2026 OBSTETRIC ULTRASOUND WHI OBSTETRIC ULTRASOUND WHI Anc Imaging Routine with uncertain dates in first trimester ([facility]) care, first in first trimester ([facility]) Expected: 01/18/2025, Expires: 01/18/2026 [facility] Comment on above: Expected: 01/18/2025 , Expires: 01/18/2026 Start: 01-18-2025 End: 04-19-2025 RUBELLA IGG ANTIBODY RUBELLA IGG ANTIBODY Lab Routine with uncertain dates in first trimester ([facility]) care, first in first trimester ([facility]) Expected: 01/18/2025, Expires: 04/19/2025 [facility] Comment on above: Expected: 01/18/2025 , Expires: 04/19/2025 Start: 01-18-2025 End: 04-19-2025 SYPHILIS TREPONEMAL W/REFLEX SYPHILIS TREPONEMAL W/REFLEX Lab Routine with uncertain dates in first trimester ([facility]) care, first in first trimester ([facility]) Expected: 01/18/2025, Expires: 04/19/2025 [facility] Comment on above: Expected: 01/18/2025 , Expires: 04/19/2025 Start: 01-18-2025 End: 04-19-2025 TYPE + SCREEN TYPE + SCREEN Blood Bank Routine with uncertain dates in first trimester ([facility]) care, first in first trimester ([facility]) Expected: 01/18/2025, Expires: 04/19/2025 [facility] Comment on above: Expected: 01/18/2025 , Expires: 04/19/2025 Start: 06-05-2024 Covid-19 Vaccine ( season) Covid-19 Vaccine ( season) [facility] Start: 06-05-2024 Influenza vaccination Influenza Vacc ine (#1) [facility] Start: 01-02-2019 HPV Vaccine (1 - 3-dose SCDM series) HPV Vaccine (1 - 3-dose SCDM series) [facility] Start: 01-02-2013 Screening for malignant neoplasm of cervix Cervical Cancer Screening [facility] Start: 01-02-2011 Hepatitis B Vaccine (1 of 3 - 19+ 3-dose series) Hepatitis B Vaccine (1 of 3 - 19+ 3-dose series) [facility] Start: 01-02-2011 Urine microalbumin profile DTaP,Tdap,Td Vaccine (1 - Tdap) [facility] Start: 01-02-2010 Anxiety Screening Anxiety Screening [facility] Start: 01-02-2010 Depression Screening Depression Scre ening [facility] Start: 01-02-2010 Hepatitis C screening Hepatitis C Sc reening [facility] Start: 01-02-2010 HIV screening HIV Screening [facility] Bacteria identified in Urine by Culture BACTERIAL CULTURE, URINE Microbiology Routine with uncertain dates in first trimester (HCC) care, first in first trimester ([facility]) 01/18/2025 1:57 PM EDT [facility] BACTERIAL VAGINOSIS NAAT BACTERIAL VAGINOSIS NAAT Lab Routine Vaginal yeast infection 02/17/2025 12:41 PM EDT [facility] PAKO/TRICHOMONAS NAAT PAKO/TRICHOMONAS NAAT Lab Routine Vaginal yeast infection 02/17/2025 12:41 PM EDT [facility] Chlamydia trachomatis+Neisseria gonorrhoeae DNA [Presence] in Unspecified specimen by TOMAS with probe detection GONORRHEA/CHLAMYDIA NAAT Lab Routine with uncertain dates in first trimester (HCC) care, first in first trimester (HCC) 01/18/2025 1:57 PM EDT [facility] PAP TEST PAP TEST Lab Fito taylor Screening for cervical cancer Special screening examination for human papillomavirus (HPV) Ordered: 01/18/2025 [facility] Comment on above: Ordered: 01/18/2025 POC [employer] WORKER ULTRASOUND POC [employer] WORKER ULTRASO UND Anc Imaging Routine with uncertain dates in first trimester (HCC) Ordered: 01/18/2025 [facility] Work Phone: Comment on above: Ordered: 01/18/2025 TRICHOMONAS VAGINALI S NAAT TRICHOMONAS VAGINALIS NAAT Lab Routine Screen for STD (sexually transmitted disease) 01/18/2025 1:57 PM EDT [facility] Immunizations Immunization Date Immunization Notes Care Provider Tray thrasher 06-19-2025 tetanus toxoid, redu mindy diphtheria toxoid, and acellular pertussis vaccine, adsorbed Vida Nunn MD Work Phone: [facility] Payers Date Payer Category Payer Self-pay 2025 Unknown [id number] 2024 Private Health Insurance [facility] [id number] 2024 Unknown [id number] Unknown [id number] Social History Date Type Detail Facility Start: 01-17-2025 Tobacco smoking stat us NJIS Never smoked tobacco [facility] Start: 01-17-2025 Tobacco use and exposure Smoke less tobacco non-user [facility] Start: 01-18-2025 End: 06-19-2025 Alcoholic beverage intake Ex-drinker (finding) [facility] Start: 01-18-2025 End: 05-30-2025 History of Social function [facility] Start: 01-18-2025 End: 05-30-2025 Tobacco use panel [facility] Start: 01-17-2025 Education 18 [facility] Start: 12-07-2024 [facility] Start: 1990 Sex assigned at Female [facility] Start: 01-17-2025 Gender identity Identifies as female gender (finding) [facility] Start: 01-17-2025 Sexual orientation Heterosexual (fin ding) [facility] Start: 01-09-2025 Sex Female [facility] Goals Date Patient Goal Desired Activity /State Personal health goal Clinical Notes 01-17-2025 to 08-10-2025 Samantha Hernadez LPN - 06/19/2025 10:57 AM EDTPrenatal Quick Notes - Vida Nunn MD - 06/19/2025 10:50 AM EDTPrenatal Tere Notes - Vida Nunn MD - 06/19/2025 10:50 AM EDT Note Date & Type Note Facility 08-10-2025 Note HNO ID: [id number] Author: PINA MAGANA PA-C Service: ? Author Type: Physician Dag Sprayer Type: Progress Notes Filed: 08/10/2025 17:14 Note Text: Rheumatology FOLLOW UP VISIT Date of Service: 08/10/2025 Patient: Chema Barbosa Medical Record: [id number] Primary Care Physician: No primary care provider [...] August 03, prescribed by her ENT at [facility]. She reports significant improvement in joint pain [...] Take 1 tablet by mouth once daily. [id number] ORAL Take 1 tablet by mouth once [...] Rng AND Units (more content not included)... [facility] 07-05-2025 Note HNO ID: [id number] Author: PINA MAGANA PA-C Service: ? Author Type: Physician Dag Sprayer Type: Progress Notes Filed: 07/05/2025 12:44 Note Text: Rheumatology CONSULTATION Date of Service: 07/05/2025 Patient: Chema Barbosa Medical Record: [id number] Primary Care Physician: No primary care provider on file. Last Rheumatology visit: None at [facility] Referring Provider: Y[address] [facility] [id number] Chema Barbosa is here today at request of Dr. Carrero specifically for consultation of my opinion in regards to the chief complaint listed below. Correspondence will be shared today via the [facility] electronic health record or through regular mail, where applicable. Recording using Yatedo software for draft documentation of the visit was discussed with the patient/authorized customer service representative teller; all questions welcomed and answered. Patient/authorized customer service representative teller agreed to proceed History of Present Illness [...] for which she has been using an qtev-htj-fdxwfge brace continuously for 6 weeks without improvement. 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 [facility] 06-19-2025 Note HNO ID: [id number] Author: SAMANTHA HERNADEZ LPN Service: ? Author [...] severely ill: Yes Patient denies history of Guillain-Winona Syndrome (a severe paralytic illness): No Tdap Adacel injection was given without incident. See immunizations for details of immunizations administered today. VIS sheet provided: Yes Provider Dr. Vida Nunn was present in office at time of injection. Samantha Hernadez LPN [facility] 06-19-2025 History of Present illness [...] severely ill: Yes Patient denies history of Guillain-Winona Syndrome (a severe paralytic illness): No Tdap Adacel injection was given without incident. See immunizations for details of immunizations administered today. VIS sheet provided: Yes Provider Dr. Vida Nunn was present in office at time of injection. Samantha Hernadez LPN documented in this encounter [facility] 06-19-2025 Progress note Formatting of [...] supervision of low-risk first in second trimester ([facility]) - ICD9: V22.0, ICD10: Z34.02 (primary diagnosis) 2. 29 weeks gestation of ([facility]) - ICD9: V22.2, ICD10: Z3A.29 3. Encounter for supervision of normal first in third trimester ([facility]) - ICD9: V22.0, ICD10: Z34.03 4. Need for yccpanwibu-bvlnqfc-sycemuqsv (Tdap) vaccine - ICD9: V06.1, ICD10: Z23 breast pump given taking birthing classes Vida Nunn MD [facility] 06-19-2025 Miscellaneous Notes RR- VB No. LOF No. CTXS No. Movement: present. Other c/o: No. Medication list reviewed. SENSITIVE EXAM: Sensitive exam not performed. Physical Exam See Flow Sheet Abd: soft, nontender, gravid Ext: edema: no A/P 29w5d Estimated Date of Delivery: 08/30/25 ASSESSMENT/PLAN: 1. Encounter for supervision of low-risk first in second trimester ([facility]) - ICD9: V22.0, ICD10: Z34.02 (primary diagnosis) 2. 29 weeks gestation of ([facility]) - ICD9: V22.2, ICD10: Z3A.29 3. Encounter for supervision of normal first in third trimester ([facility]) - ICD9: V22.0, ICD10: Z34.03 4. Need for aoodkwiokc-fasrrdz-vnaraaten (Tdap) vaccine - ICD9: V06.1, ICD10: Z23 breast pump given taking birthing classes Vida Nunn MD documented in this encounter [facility] 06-19-2025 Instructions Rubia Israel MA - 06/19/2025 10:44 AM EDT SEQUENTIAL SCREENINGS The [facility] offers sequential screenings for women [...] It will require an appointment with our gastrointestinal technician. This is not an ultrasound performed [...] the above symptoms, contact our office at [phone] and ask to speak with a nurse. After hours, you can call doctors registry at [phone] OR call [facility] at [phone] and ask to have the doctor consolidation accountant paged. If you consider this an emergency, dial 2-8-4 or go to your nearest emergency department. NEED HELP? Are you dealing with a violent or abusive relationship? Are you a victim of rape or sexual assult? Call [facility] ([facility] 24 hour Crisis Hotline: 234.296.3442 or 836-798-2674. MANUAL Your Guide to a Healthy manual is now on-line. Visit [email or web address] to download your free copy documented in this encounter [facility] 05-30-2025 Progress note Formatting of t his note might be different from the original. KJ - S: Chema denies LOF, contractions or vaginal bleeding. Her joint pain is stable. O: 26w6d, see flow sheet SENSITIVE EXAM: Sensitive exam not performed. A/P: Assessment & Plan 26 weeks gestation of ([facility]) Encounter for supervision of low-risk first in second trimester ([facility]) 28wk labs today Tdap next visit Declines LARC Reviewed PTL & FM precautions Yon Carrero MD [facility] 05-30-2025 Miscellaneous Notes KJ - S: Chema denies LOF, contractions or vaginal bleeding. Her joint pain is stable. O: 26w6d, see flow sheet SENSITIVE EXAM: Sensitive exam not performed. A/P: Assessment & Plan 26 weeks gestation of ([facility]) Encounter for supervision of low-risk first in second trimester ([facility]) 28wk labs today Tdap next visit Declines LARC Reviewed PTL & FM precautions Yon Carrero MD documented in this encounter [facility] 05-30-2025 Instructions Roxana Haney MA - 05/30/2025 10:55 AM EDT SEQUENTIAL SCREENINGS The [facility] offers sequential screenings for women [...] It will require an appointment with our gastrointestinal technician. This is not an ultrasound performed [...] the above symptoms, contact our office at [phone] and ask to speak with a nurse. After hours, you can call doctors registry at [phone] OR call [facility] at [phone] and ask to have the doctor consolidation accountant paged. If you consider this an emergency, dial 06-05- or go to your nearest emergency department. NEED HELP? Are you dealing with a violent or abusive relationship? Are you a victim of rape or sexual assult? Call [facility] ([place]) 24 hour Crisis Hotline: 486.724.7608 or 243-768-8599. MANUAL Your Guide to a Healthy manual is now on-line. Visit [email or web address] to download your free copy documented in this encounter [facility] 05-16-2025 Progress note Formatting of [...] DISEASE; Future Yon Carrero MD [facility] 05-16-2025 Miscellaneous Notes KJ - [...] MD documented in this encounter [facility] 05-16-2025 Instructions Roxana Haney MA - 05/16/2025 11:08 AM EDT SEQUENTIAL SCREENINGS The [facility] offers sequential screenings for women [...] It will require an appointment with our gastrointestinal technician. This is not an ultrasound performed [...] the above symptoms, contact our office at [phone] and ask to speak with a nurse. After hours, you can call doctors registry at [phone] OR call [facility] at [phone] and ask to have the doctor consolidation accountant paged. If you consider this an emergency, dial 3-7-3 or go to your nearest emergency department. NEED HELP? Are you dealing with a violent or abusive relationship? Are you a victim of rape or sexual assult? Call [facility] ([place]) 24 hour Crisis Hotline: 528.539.9481 or 359-044-1793. MANUAL Your Guide to a Healthy manual is now on-line. Visit [email or web address] to download your free copy documented in this encounter [facility] 04-04-2025 Progress note Formatting of t his note might be different from the original. KJ - S: Chema denies LOF, contractions or vaginal bleeding. She reports some acid reflux, bloating & constipation. O: 18w6d, see flow sheet SENSITIVE EXAM: Sensitive exam not performed. A/P: Assessment & Plan Encounter for supervision of low-risk first in second trimester (HCC) 18 weeks gestation of ([facility]) Anatomy US today. Constipation, unspecified constipation type Advised on nutrition and hydration. All questions answered. Yon Carrero MD [facility] 04-04-2025 Miscellaneous Notes KJ - S: Chema denies LOF, contractions or vaginal bleeding. She reports some acid reflux, bloating & constipation. O: 18w6d, see flow sheet SENSITIVE EXAM: Sensitive exam not performed. A/P: Assessment & Plan Encounter for supervision of low-risk first in second trimester (HCC) 18 weeks gestation of ([facility]) Anatomy US today. Constipation, unspecified constipation type Advised on nutrition and hydration. All questions answered. Yon Carrero MD documented in this encounter [facility] 04-04-2025 Instructions Roro Rodriguez MA - 04/04/2025 1:24 PM EDT SEQUENTIAL SCREENINGS The [facility] offers sequential screenings for women [...] It will require an appointment with our gastrointestinal technician. This is not an ultrasound performed [...] the above symptoms, contact our office at [phone] and ask to speak with a nurse. After hours, you can call doctors registry at [phone] OR call [facility] at [phone] and ask to have the doctor consolidation accountant paged. If you consider this an emergency, dial 9-1-1 or go to your nearest emergency department. NEED HELP? Are you dealing with a violent or abusive relationship? Are you a victim of rape or sexual assult? Call [facility] ([facility] 24 hour Crisis Hotline: 410.340.2980 or 650-444-7594. MANUAL Your Guide to a Healthy manual is now on-line. Visit [email or web address] to download your free copy documented in this encounter [facility] 03-17-2025 Progress note Formatting of [...] visit ASSESSMENT/PLAN: 1. 16 weeks gestation of ([facility]) - ICD9: V22.2, ICD10: Z3A.16 (primary diagnosis) 2. Encounter for supervision of low-risk first in second trimester ([facility]) - ICD9: V22.0, ICD10: Z34.02 Jina Escalera MD [facility] 03-17-2025 Miscellaneous Notes S: Chema [...] visit ASSESSMENT/PLAN: 1. 16 weeks gestation of ([facility]) - ICD9: V22.2, ICD10: Z3A.16 (primary diagnosis) 2. Encounter for supervision of low-risk first in second trimester ([facility]) - ICD9: V22.0, ICD10: Z34.02 Jina Escalera MD documented in this encounter [facility] 03-17-2025 Instructions Roxana Haney MA - 03/17/2025 12:55 PM EDT SEQUENTIAL SCREENINGS The [facility] offers sequential screenings for women [...] It will require an appointment with our gastrointestinal technician. This is not an ultrasound performed [...] the above symptoms, contact our office at [phone] and ask to speak with a nurse. After hours, you can call doctors registry at [phone] OR call [facility] at [phone] and ask to have the doctor consolidation accountant paged. If you consider this an emergency, dial 4-3-4 or go to your nearest emergency department. NEED HELP? Are you dealing with a violent or abusive relationship? Are you a victim of rape or sexual assult? Call [facility] ([place]) 24 hour Crisis Hotline: 642.755.5211 or 077-189-7439. MANUAL Your Guide to a Healthy manual is now on-line. Visit [email or web address] to download your free copy documented in this encounter [facility] 02-20-2025 Progress note Formatting of t his note might be different from the original. Anatomy ultrasound reviewed. No abnormalities identified. Follow up as clinically indicated. Please place copy in ob chart. Vida Nunn MD [facility] Work Phone: 02-20-2025 Miscellaneous Notes Anatomy ultrasound reviewed. No abnormalities identified. Follow up as clinically indicated. Please place copy in ob chart. Vida Nunn MD documented in this encounter [facility] 02-20-2025 Telephone encounter Note Pharmacy is up to date. Josefina Hurley RN [facility] 02-20-2025 Miscellaneous Notes Pharmacy is up to date. Josefina Hurley RN documented in this encounter [facility] 02-17-2025 Progress note Formatting of [...] 4 wks Patsy Sapp DO [facility] 02-17-2025 Miscellaneous Notes SW- No [...] DO documented in this encounter [facility] 02-17-2025 Instructions Patsy Sapp MD - 02/17/2025 11:42 AM EDT SEQUENTIAL SCREENINGS The [facility] offers sequential screenings for women [...] It will require an appointment with our gastrointestinal technician. This is not an ultrasound performed [...] the above symptoms, contact our office at [phone] and ask to speak with a nurse. After hours, you can call doctors registry at [phone] OR call [facility] at [phone] and ask to have the doctor consolidation accountant paged. If you consider this an emergency, dial 9-1-1 or go to your nearest emergency department. NEED HELP? Are you dealing with a violent or abusive relationship? Are you a victim of rape or sexual assult? Call [facility] ([facility] 24 hour Crisis Hotline: 452.287.8627 or 545-647-3690. MANUAL Your Guide to a Healthy manual is now on-line. Visit [email or web address] to download your free copy [...] night. documented in this encounter [facility] 01-18-2025 Progress note Formatting of t his note might be different from the original. Patient is here for NOB. See progress note. Lalita Moncada APRN.CNM [facility] 01-18-2025 Miscellaneous Notes Patient is here for NOB. See progress note. Lalita Moncada APRN.CNM documented in this encounter [facility] 01-17-2025 Note HNO ID: [id number] Author: LALITA MONCADA APRN.CNM Service: ? Author Type: Assistant Auto Center Manager Type: Progress Notes Filed: 01/18/2025 14:18 Note Text: INITIAL OB ASSESSMENT Patient declined yard jacker. HPI: Chema is a 35 year old [...] all that apply)? 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 As applicable, any other physician, advance practice provider, medical student, or other health professional student that will be observing or involved in the sensitive examination for educational or training purposes was discussed with the Patient or Authorized Clinical Appeals Specialist. The Patient or Authorized Clinical Appeals Specialist has agreed to proceed with the sensitive examination. (Sensitive examination includes inspection and/or palpatio (more content not included)... [facility] 01-17-2025 History of Present illness Narrative INITIAL OB ASSESSMENT Patient declined yard jacker. HPI: Chema is a 35 year old [...] all that apply)? 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 As applicable, any other physician, advance practice provider, medical student, or other health professional student that will be observing or involved in the sensitive examination for educational or training purposes was discussed with the Patient or Authorized Clinical Appeals Specialist. The Patient or Authorized Clinical Appeals Specialist has agreed to proceed with the sensitive [...] Your guide to a health and the Multimedia Services Coordinator. Reviewed midwifery and criminal defense lawyer services that are available. 2) Screening: Hemoglobin [...] APRN.CNM documented in this encounter [facility] 01-17-2025 Instructions Lalita Moncada APRN.CNM - 01/17/2025 12:19 PM EDT MORNING SICKNESS IN by Neena Charles M.D. for adaffix As you may already know, morning sickness can often be more appropriately called evening sickness or vtcqu-mcvcqu-ur-the-day sickness. While there are the scottie few, [...] medication, Doxylamine, is currently marketed as an nofs-wea-qmwlcvh sleeping pill. Ask your practitioner if creating a vitamin B6/Doxylamine combination with igca-rqs-cmzmbdv medications would be safe for you. Prescription [...] following link to access the [facility] Your Guide to a Healthy . [email or web address] Please select the following link to access the [facility] Your Guide to a Healthy . [email or web address] documented in this encounter [facility] Evaluation note Diagnosis with uncertain dates in first trimester (HCC)- Primary care, first in first trimester ([facility]) Screen for STD (sexually transmitted disease) Screening examination for venereal disease Screening for cervical cancer Screening for malignant neoplasm of the cervix Special screening examination for human papillomavirus (HPV) Nausea Nausea alone Encounter for supervision of low-risk first in first trimester (HCC) Heart valve disorder Endocarditis, valve unspecified, unspecified cause documented [facility] this encounter [facility] Diagnosis care, first in first trimester (HCC)- Primary 12 weeks gestation of ([facility]) state, incidental Oral herpes Herpetic gingivostomatitis Vaginal yeast infection Candidiasis of vulva and vagina documented [facility] Diagnosis Encounter for screening for malformation using ultrasound ([facility])- Primary 12 weeks gestation of ([facility]) state, incidental documented [facility] Diagnosis 16 weeks gestation of ([facility])- Primary state, incidental Encounter for supervision of low-risk first in second trimester ([facility]) [facility] Diagnosis Encounter for anatomic survey ([facility])- Primary Encounter for anatomic survey 18 weeks gestation of ([facility]) state, incidental documented [facility] this encounter [facility] Diagnosis Encounter for supervision of low-risk first in second trimester ([facility])- Primary 18 weeks gestation of ([facility]) state, incidental Constipation, unspecified constipation type documented in this encounter [facility] Diagnosis Screening for diabetes mellitus- Primary 24 weeks gestation of ([facility]) state, incidental Encounter for supervision of low-risk first in second trimester ([facility]) Arthralgia of both hands Rash Rash and other nonspecific skin eruption documented [facility] this [facility] Diagnosis 26 weeks gestation of ([facility])- Primary state, incidental Encounter for supervision of low-risk first in second trimester ([facility]) documented in this encounter [facility] Diagnosis Encounter for supervision of low-risk first in second trimester ([facility])- Primary 29 weeks gestation of ([facility]) state, incidental Encounter for supervision of normal first in third trimester ([facility]) Supervision of normal first Need for srbwnaswla-zswkzrq-cplvsbkix (Tdap) vaccine Need for prophylactic vaccination with combined kxtomqgpqr-pqrnnjv-oxjqewnzn (DTP) vaccine Encounter for supervision of low-risk first in first trimester ([facility]) Need for vaccination Need for prophylactic vaccination and inoculation against unspecified single disease documented in this encounter [facility] Summary Purpose Family History No [...] any alcohol or drug abuse patient.[facility] the event this information is protected by the Federal Confidentiality of Alcohol and Drug Abuse Patient Records regulations: The Federal rules restrict any use of the information to criminally investigate or prosecute any alcohol or drug abuse patient.[facility] the event this information is protected by the Federal Confidentiality of Alcohol and Drug Abuse Patient Records regulations: The Federal rules restrict any use of the information to criminally investigate or prosecute any alcohol or drug abuse patient.[facility] the event this information is protected by the Federal Confidentiality of Alcohol and Drug Abuse Patient Records regulations: The Federal rules restrict any use of the information to criminally investigate or prosecute any alcohol or drug abuse patient.[facility] the event this information is protected by the Federal Confidentiality of Alcohol and Drug Abuse Patient Records regulations: The Federal rules restrict any use of the information to criminally investigate or prosecute any alcohol or drug abuse patient.[facility] the event this information is protected by the Federal Confidentiality of Alcohol and Drug Abuse Patient Records regulations: The Federal rules restrict any use of the information to criminally investigate or prosecute any alcohol or drug abuse patient.[facility] Center[facility] the event this information is protected by the Federal Confidentiality of Alcohol and Drug Abuse Patient Records regulations: The Federal rules restrict any use of the information to criminally investigate or prosecute any alcohol or drug abuse patient.[facility] Center[facility] the event this information is protected by the Federal Confidentiality of Alcohol and Drug Abuse Patient Records regulations: The Federal rules restrict any use of the information to criminally investigate or prosecute any alcohol or drug abuse patient.[facility] Center[facility] the event this information is protected by the Federal Confidentiality of Alcohol and Drug Abuse Patient Records regulations: The Federal rules restrict any use of the information to criminally investigate or prosecute any alcohol or drug abuse patient.[facility] Center[facility] the event this information is protected by the Federal Confidentiality of Alcohol and Drug Abuse Patient Records regulations: The Federal rules restrict any use of the information to criminally investigate or prosecute any alcohol or drug abuse patient.[facility] Center[facility] the event this information is protected by the Federal Confidentiality of Alcohol and Drug Abuse Patient Records regulations: The Federal rules restrict any use of the information to criminally investigate or prosecute any alcohol or drug abuse patient.[facility] Reason for Visit (unrecogniz ed section and content) Reason Comments Initial OB Visit Specialty Diagnoses / Procedures Referred By Ramiro t Referred To Contact Travel Registered Nurse Icu / SLATE CUTTER OPERATOR Diagnoses Encounter for gynecological examination (general) (routine) without abnormal findings New OB/ LMP 11/23 Procedures OFFICE/OUTPATIENT NEW HIGH MDM 60 MINUTES NEW I OB 1ST EXAM Self Lalita Moncada APRN.CNLola [address] [place] [address] Phone: tel: fax:[phone] Referral ID Status Reason Start Date Expiration Date V isits Requested Visits Authorized [id number] Authorized 01/18/2025 11/05/2025 99 99 Reason Onset Date Comments Care 02/17/2025 Specialty Diagnoses / Procedures Referred By Contac t Referred To Contact Travel Registered Nurse Icu / SLATE CUTTER OPERATOR Diagnoses care, first in first trimester (HCC) Nuchal/OB Procedures OFFICE/OUTPATIENT ESTABLISHED LOW MDM 20 MIN EST WHI OB Lalita Moncada APRN.CNM [address] [place] [place] [address] Phone: tel: fax: Patsy Sapp MD [address] [place] [address] Phone: tel: fax: Referral ID Status Reason Start Date Expiration Date V isits Requested Visits Authorized [id number] Authorized 01/18/2025 11/05/2025 99 99 Reason Comments US Specialty Diagnoses / Procedures Referred By Contac t Referred To Contact [facility] Diagnoses with uncertain dates in first trimester (HCC) care, first in first trimester (HCC) Procedures OBSTETRIC ULTRASOUND WHI US PREG UTERUS AFTER 1ST TRIMEST GESTATION Lalita Moncada APRN.CN [address] [place] [address] Phone: tel: fax: [facility] [address] [place] [address] Referral ID Status Reason Start Date Expiration Date Visits Requested Visits Authorized [id number] Authorized Auto-Generated Referral Financial Clearance Required - International Insurance 11/05/2025 99 99 Reason Onset Date Comments Care 03/17/2025 Specialty Diagnoses / Procedures Referred By Contac t Referred To Contact Travel Registered Nurse Icu / SLATE CUTTER OPERATOR Diagnoses Encounter for supervision of normal , unspecified, first trimester (HCC) Encounter for supervision of low-risk first in first trimester (HCC) OB Procedures OFFICE/OUTPATIENT ESTABLISHED SF MDM 10 MIN EST WHI OB Self Jina Escalera MD [address] [place] [address] Phone: tel: fax: Referral ID Status Reason Start Date Expiration Date V isits Requested Visits Authorized [id number] Authorized 01/31/2025 11/05/2025 99 99 Referral ID Status Reason Start Date Expiration Date Visits Requested Visits Authorized [id number] Authorized Auto-Generated Referral Financial Clearance Required - International Insurance Patient Cleared - GPS SARAHI Approved 11/05/2025 99 99 Reason Onset Date Comments Care 04/04/2025 Specialty Diagnoses / Procedures Referred By Contac t Referred To Contact Travel Registered Nurse Icu / SLATE CUTTER OPERATOR Diagnoses Encounter for supervision of normal first , first trimester (HCC) Encounter for supervision of normal , unspecified, first trimester (HCC) Anatomy/OB Procedures OFFICE/OUTPATIENT ESTABLISHED SF MDM 10 MIN EST [facility] OB Lalita Moncada APRN.[facility] [address] [place] [address] Phone: tel: fax: Yon Carrero MD [address] [place] [address] Phone: tel: fax: Referral ID Status Reason Start Date Expiration Date Visits Requested Visits Authorized [id number] Authorized Financial Clearance Required - International Insurance Patient Cleared - [employer] SARAHI Approved 11/05/2025 99 99 Reason Onset Date Comments Care 05/16/2025 Specialty Diagnoses / Procedures Referred By Contac t Referred To Contact Travel Registered Nurse Icu / SLATE CUTTER OPERATOR Diagnoses Encounter for supervision of low-risk first in second trimester (HCC) OB Procedures OFFICE/OUTPATIENT ESTABLISHED SF MDM 10 MIN EST [facility] OB Self Jina Escalera MD [address] [place] [address] Phone: tel: fax: Referral ID Status Reason Start Date Expiration Date V isits Requested Visits Authorized [id number] Authorized 01/31/2025 11/05/2025 99 99 Reason Onset Date Comments Care 05/30/2025 Specialty Diagnoses / Procedures Referred By Contac t Referred To Contact Travel Registered Nurse Icu / SLATE CUTTER OPERATOR Diagnoses Encounter for supervision of low-risk first in second trimester (HCC) Glucose Test /OB Procedures OFFICE/OUTPATIENT ESTABLISHED SF MDM 10 MIN EST [facility] OB Self Yon Carrero MD [address] [place] [address] Phone: tel: fax: Referral ID Status Reason Start Date Expiration Date V isits Requested Visits Authorized [id number] Authorized 01/31/2025 11/05/2025 99 99 Reason Onset Date Comments Care 06/19/2025 Specialty Diagnoses / Procedures Referred By Contac t Referred To Contact Travel Registered Nurse Icu / SLATE CUTTER OPERATOR Diagnoses Encounter for supervision of low-risk first in second trimester (HCC) OB Procedures OFFICE/OUTPATIENT ESTABLISHED SF MDM 10 MIN EST I OB Self Vida Nunn MD [address] [place] [address] Phone: tel: fax: Referral ID Status Reason Start Date Expiration Date V isits Requested Visits Authorized [id number] Authorized 01/31/2025 11/05/2025 99 99 INFORMATION SOURCE (unrecogn ized section and content) DATE CREATED AUTHOR 05/30/2025 [facility] DATE CREATED AUTHOR AUTHOR'S REA ATION 08/17/2025 [facility] FOR RECORDS PERTAINING TO PATIENTS [...] BE BASED ON THE PRIMARY CLINICAL RECORDS. [employer] provides no warranty or guarantee of the accuracy or completeness of information in this document.
[2025-09-03 19:33] VITALS: PULSE 116; O2SAT 99
[2025-09-03 19:34] VITALS: RESP 16; TEMP 36.6
[2025-09-03 19:35] VITALS: BP 136/98; PULSE 113
[2025-09-03] MEDS: Lactated Ringers 1,000 ML 50 ML IV (19:40)
[2025-09-03 19:59] LABS: Hematocrit 40.2 % (37-47); Hemoglobin 14.0 g/dL (12.0-15.0); Immature Granulocytes Count 0.030 X10^3/uL (0.0-0.0); Mean Corp Hgb Conc 34.8 g/dL (32-36); Mean Corpuscular Volume 89.1 fL (81-99); Mean Platelet Vol. 12.0 fl (6.2-12.0); NRBC Flagged by Analyzer 0 % (0-5); Platelet Count 129 K/mm3 (150-450); RBC Distribution Width CV 13.9 % (11.6-14.6); RBC Distribution Width SD 45.1 fl (35.1-43.9); Red Blood Count 4.51 M/mm3 (4.2-5.4); White Blood Count 6.6 K/mm3 (4.4-11.0)
[2025-09-03 20:29] LABS: Syphilis Antibodies Nonreactive (Nonreactive)
--- NOTE | 2025-09-03 21:22 | PCM.HP.OB ---
HPI - General General Date of Admission: 09/03/25 Date of Service: 09/03/25 Chief Complaint: induction HPI Narrative CHEMA MCKEON, is a 35 F who presents for induction of labor. GBS negative. 0.5-1 cm. Plan for cytotec and then ramey bulb Maternal Data Information Final STEPHON: 08/30/25 Gestational age: 40+4 PFSH PFSH Medical History Broken arm Oral herpes Polyhydramnios Tricuspid valve disorder Home Medications ?Medication ?Instructions ?Recorded ?Last Taken ?Type aspirin 81 mg tablet,delayed 81 mg PO DAILY 09/03/25 09/03/25 History release folic acid 1 mg tablet 2 mg PO DAILY 09/03/25 09/03/25 History sulfasalazine 500 mg tablet PO arthritis 09/03/25 09/03/25 History Allergy/AdvReac Type Severity Reaction Status Date / Time tetracycline AdvReac Mild Vomiting Verified 09/03/25 19:37 Social History Smoking Status: Former smoker History Elective abortions Hx Para 0 Spontaneous abortions Hx # Term Pregnancies Ectopic pregnancies Hx # Pregnancies Multiple births # of living children NST FHR Rate Baby A Baseline: 145 Variability:: Moderate Accelerations:: 15 x 15 Decelerations:: None NST Reactive:: Yes Vital Signs Vital Signs Vital Signs: 09/03/25 19:33 09/03/25 19:33 09/03/25 19:34 Temperature Temperature Source Temporal Pulse Rate 116 H Respiratory Rate Blood Pressure BP Systolic BP Diastolic Pulse Ox 99 09/03/25 19:34 09/03/25 19:34 09/03/25 19:35 Temperature 97.9 F Temperature Source Pulse Rate Respiratory Rate 16 Blood Pressure 136/98 H BP Systolic 136 BP Diastolic 98 Pulse Ox 09/03/25 19:35 Temperature Temperature Source Pulse Rate 113 H Respiratory Rate Blood Pressure BP Systolic BP Diastolic Pulse Ox Weight Weight: 88.507 kg Body Mass Index (BMI) 31.4 PRE- weight 70.76 kg PRE- Body Mass Index 25.2 (BMI) Physical Exam Const alert and no apparent distress General Appearance: cooperative HEENT normocephalic Resp normal respiratory effort Cardio regular rate GI soft to palpation GI Narrative: gravid, nontender, appropriate for gestational age Extremity no calf tenderness General Extremity: edema Skin no wounds Rashes: No rashes noted Psych activity/motor behavior normal Labs Labs Labs: Blood Type A POSITIVE Antibody Screen NEGATIVE Hct, (37-47) 40.2 % Hgb, (12.0-15.0) 14.0 g/dL Syphilis Total Ab, (Nonreactive) Nonreactive Assessment & Plan (1) Elective induction of labor planned: (2) 40 weeks gestation of : PLAN: Plan Cytotec Ramey AROM prn Pitocin after Ramey Epidural if desires
[2025-09-04] VITALS (97 sets, daily range): BP systolic 110–174; BP diastolic 60–104; PULSE 77–145; RESP 14–20; TEMP 36.6–37.8; O2SAT 92–100
[2025-09-04] MEDS: 0.9% Normal Saline Single 100 ML IV.SOLN. INTRA-UTER (01:48)
--- NOTE | 2025-09-04 01:53 | PCM.PN.OB ---
Subjective Subjective Ramey bulb placed without difficulty. 1.5 cm Cat 1 Objective Data Objective Data Vital Signs: Vital Signs Temp Pulse Resp BP Pulse Ox 97.9 F 77 16 138/91 H 99 09/04/25 01:26 09/04/25 01:26 09/04/25 01:26 09/04/25 01:26 09/03/25 19:33 Weight: 88.507 kg Body Mass Index (BMI) 31.4 Intake & Output: Intake and Output for Last 24 Hours 09/02/25 09/03/25 09/04/25 23:59 23:59 23:59 Intake Total 120 / 120 Balance 120 / 120 Lab / Micro Data 09/03/25 19:40 Labs: Laboratory Results - last 24 hr 09/03/25 19:40: WBC 6.6, RBC 4.51, Hgb 14.0, Hct 40.2, MCV 89.1, MCH 31.0, MCHC 34.8, RDW Std Deviation 45.1 H, RDW Coeff of Gagan 13.9, Plt Count 129 L, MPV 12.0, Immature Gran % (Auto) 0.500, Neut % (Auto) 61.8, Lymph % (Auto) 25.5, Swisher % (Auto) 11.0 H, Eos % (Auto) 0.9, Baso % (Auto) 0.3, Absolute Neuts (auto) 4.1, Absolute Lymphs (auto) 1.69, Nucleated RBC % 0, Syphilis Total Ab Nonreactive, Blood Type A POSITIVE, Antibody Screen NEGATIVE NST FHR Rate Baby A Baseline: 140 FHR Category:: Category I Assessment & Plan (1) 40 weeks gestation of : (2) Elective induction of labor planned: PLAN: Plan Arom/pit after ramey
[2025-09-04] MEDS: fentaNYL 100 MCG/2 ML Ampul IV (02:02)
[2025-09-04] MEDS: 0.9% Saline Lock 10 ML Syringe IV (02:03)
[2025-09-04] MEDS: fentaNYL-bupivacaine (epidural) 100 ML BAG EPIDURAL ×4 (07:01→20:11)
--- NOTE | 2025-09-04 08:29 | PCM.PN.BLA ---
Progress Note Patient is now comfortable with epidural. Assessment & Plan Assessment/Plan (1) 40 weeks gestation of : (2) Elective induction of labor planned: PLAN: Cvx 4/80/-3, unable to perform AROM given station. Contractions palpate strong. Comfortable with epidural. Continue current plan of care. (3) Polyhydramnios: (4) Oral herpes:
[2025-09-04] MEDS: Lactated Ringers 1,000 ML 200 ML IV ×4 (08:39→18:57)
--- NOTE | 2025-09-04 18:34 | PCM.PN.BLA ---
Progress Note Patient comfortable with epidural. Assessment & Plan Assessment/Plan (1) Oral herpes: (2) Polyhydramnios: (3) 40 weeks gestation of : (4) Elective induction of labor planned: PLAN: Cvx 10/100/0. RN at bedside and will begin pushing.
[2025-09-04] MEDS: Oxytocin 15 Units/NS 250ml 15 UNITS/250 ML IV.SOLN 334 UNITS IV (20:24)
[2025-09-04] MEDS: Oxytocin 15 Units/NS 250ml 15 UNITS/250 ML IV.SOLN 83 UNITS IV (20:57)
--- NOTE | 2025-09-04 21:12 | OB.VAGDELI_ITS ---
Assessment & Plan (1) Oral herpes: (2) Polyhydramnios: (3) 40 weeks gestation of : (4) Elective induction of labor planned: (5) Vaginal delivery: (6) Second degree perineal laceration: Vaginal Delivery Maternal Presentation Maternal Presentation: Elective Induction Type of Induction: Narayan Bulb, Amniotomy and Cytotec Vaginal Delivery Information Procedure Performed: Spontaneous Vaginal Delivery Surgeon/Practitioner: Carmel Sapp Date of Procedure: 09/04/25 Pre-Procedure Diagnosis: 40 week gestation, polyhydramnios, elective induction o f labor planned Post-Procedure Diagnosis: As above Type of anesthesia: Epidural Special Medications: None Estimated Blood Loss: 300 mL Findings Description of procedure: Cvx 10/100/0 once the patient began pushing. The patient was complete and pushing with good maternal pushing effort, and good descent. FHT tachycardia with variable decelerations while pushing. Continued to push given great descent with pushing, and progress being made. Patient pushed for about 1.5 hours total, and head of infant delivered in MOO position. A loose nuchal cord x 1 was reduced. The anterior shoulder delivered with gentle downward traction, followed by the posterior shoulder and body without any excessive traction, force or delay. A VMI was placed on maternal abdomen and the cord was clamped and cut immediately to hand the off to the awaiting nursery staff. The placenta delivered spontaneously and was noted to be normal appearing, and intact with a 3 VC. The uterus was boggy and Pitocin was initiated, the uterus was explored x 1, and uterine massage applied. The fundus then firmed up and bleeding was minimal. 3-0 and 2-0 Vicryl were used to repair the second degree perineal laceration in usual sterile fashion. There was a small laceration over the left vaginal side wall that was bleeding and made hemostatic using a figure of eight stitch of 3-0 Vicryl. There was a small laceration over the right vaginal side wall that was bleeding and made hemostatic using a figure of eight stitch of 3-0 Vicryl. Bleeding scant. A vaginal sweep was performed. Sponge and needle counts were correct. Procedure findings: VMI with Apgars 7,8 Meconium stained fluid Presentation: Vertex Amniotic Membrane Rupture Type: Artificial Amniotic Fluid Description: Moderate meconium Placental Delivery Description: Spontaneous Placenta Disposition: Sent to Pathology Cord Vessel Description: 3 Vessels Cord Entanglement: Around neck x 1, loose Nuchal Cord Compression: Without compression Cord Gases: ABG and VBG A Gender: Male (1 minute): 7 (5 minute): 9 Delayed Cord Clamping: No Automotive Design Layout Drafter program developer: No Post Vaginal Deli Medications given after delivery: IV Pitocin Episiotomy Description: None Laceration: 2nd degree Complication Complications: No
--- NOTE | 2025-09-04 21:39 | PLAC_PTH ---
PATIENT: CHEMA MCKEON LOC: [facility] U#:[id number] AGE/SX: 35/F ROOM: WP006 RE09/03/[address]: Dr. Carmel Sapp DO : 1990 BED: 1 DIS: 09/06/2025 SPEC #: [id number] RECD: 09/04/25 22:26 STATUS: TAMMY REBrisa #: [id number] MARY: 09/04/25 21:[address]: Carmel Sapp DEPT: SURGICAL PATHOLOGY RECD BY: Nico Fair ENTERED: 09/05/25 10:48 SP TYPE: PLACENTA OTHR DR: Dr. Jina Escalera MD No Primary Care Phys Tissues: A - Placenta, NOS Procedures: Surgery Specimen Level V HEADER OPERATION: Vaginal delivery PRE-OP DIAGNOSIS: tachycardia TISSUE SUBMITTED: A- Placenta MICROSCOPIC DIAGNOSIS A. Placenta, 3rd trimester, 40 weeks / 4 days gestation, vaginal delivery: - Mature mazariegos placenta, 545.3 grams (approximately 70-75th percentile). - Mild early chorioamnionitis. - Three vessel umbilical cord with tethering and focal early acute umbilical arteritis. - Focal free-floating pigmented macrophages associated with membranes, suggestive of meconium. MICROSCOPIC DESCRIPTION Slides are reviewed. GROSS DESCRIPTION A. Received in formalin labeled with the patient's name and date of is a 545.3 g, 18.3 x 15.5 x 3.7 cm ovoid placental disc and approximately 30 g of clotted blood. The membranes are tethered to the umbilical cord and detached from the remainder of the placental disc; they are yellow-green, translucent and markedly edematous with possible marginal insertion. The tethered, trivascular umbilical cord measures 61.7 cm in length by 1.2-1.5 cm in diameter and inserts eccentrically, 1.9 cm from the disc edge. The surface is blue-purple with focally yellow-green, edematous amnion and focal subchorionic fibrin (<10%). The maternal surface is red-brown and grossly complete. Sectioning reveals red spongy parenchyma with focal hemorrhage and fibrin (<10%). Battery Mechanic sections are submitted as follows: A1: Membrane rollA2: Umbilical cordA3: PlacentaA4: Placenta SC 09/05/2025 CPT:[id number]
[2025-09-04 22:41] LABS: Pathology Specimen OB SEE PATHOLOGY REPORT
[2025-09-05] VITALS (7 sets, daily range): BP systolic 123–136; BP diastolic 74–96; PULSE 84–108; RESP 16–18; TEMP 36.1–36.8; O2SAT 97–98
[2025-09-05] MEDS: 0.9% Saline Lock 10 ML Syringe IV ×4 (00:09→16:34)
[2025-09-05] MEDS: Gentamicin IV 300 MG in Dextrose 5%-Water (50mL Bag) 50 ML 100 MG IVPB (00:09)
[2025-09-05 00:17] LABS: Hematocrit 38.0 % (37-47); Hemoglobin 12.8 g/dL (12.0-15.0); Immature Granulocytes Count 0.060 X10^3/uL (0.0-0.0); Mean Corp Hgb Conc 33.7 g/dL (32-36); Mean Corpuscular Volume 91.6 fL (81-99); Mean Platelet Vol. 12.2 fl (6.2-12.0); NRBC Flagged by Analyzer 0 % (0-5); POSITIVE DIFFERENTIAL YES; POSITIVE MORPHOLOGY YES; Platelet Count 108 K/mm3 (150-450); RBC Distribution Width CV 14.1 % (11.6-14.6); RBC Distribution Width SD 47.1 fl (35.1-43.9); Red Blood Count 4.15 M/mm3 (4.2-5.4); White Blood Count 16.1 K/mm3 (4.4-11.0)
[2025-09-05 00:44] LABS: Differential Indicated SCAN CRITERIA MET
[2025-09-05] MEDS: Clindamycin 900 MG/50 ML BAG 75 MG IV ×2 (00:56→08:27)
[2025-09-05 00:59] LABS: Differential Comment SCANNED
--- NOTE | 2025-09-05 06:15 | PCM.RX.CS ---
Consult Antibiotic Management Pharmacy has been consulted to manage selected antibiotic: Gentamicin Type of Intervention Type of Consult: New start Dosing Weight Weight used for dosin.5 kg Pharmacy Plan for Drug Dosing Pharmacy Plan for Drug Dosing: Pharmacy Service will continue to monitor and adjust dosing as required. INITIAL DOSE 300MG GIVEN 09/05 @ 0009. START 300MG Q24H AND DRAW RANDOM LEVEL 10 HOURS AFTER INITIAL DOSE Follow-Up Labs Follow-Up Labs: Trough: Gentamicin Date/Time Labs Ordered Labs to be done on [date and time ordered]: 09/05 @ 1000
[2025-09-05] MEDS: Benzocaine/Lanolin/Aloe Vera 85 GM Spray 1 SPRAY TOPICAL ×2 (08:16→23:35)
[2025-09-05] MEDS: GLYCERIN/WITCH HAZEL (TUCKS) MED..PAD 1 EACH TOPICAL (08:16)
[2025-09-05] MEDS: SELF ADMINISTRATION OF MEDS 1 EACH NOTE ×2 (10:23→23:33)
--- NOTE | 2025-09-05 11:41 | PN.OBGYN_ITS ---
Subjective Subjective Doing well per patient and nursing staff. Ambulating and taking PO without difficulty. Voiding and passing flatus. Pain controlled. , services for assistance. Denies headache, visual changes, chest pain, shortness of breath, leg pain or increased bleeding. Lochia normal. Objective Data Objective Data Vital Signs: Vital Signs Temp Pulse Resp BP Pulse Ox O2 Del Method 97.8 F 92 16 123/74 H 97 Room Air 09/05/25 08:00 09/05/25 08:00 09/05/25 08:00 09/05/25 08:00 09/05/25 08:00 09/05/25 08:00 Oxygen Delivery Method Room Air Weight: 195 lb 2 oz Body Mass Index (BMI) 31.4 Intake & Output: Intake and Output for Last 24 Hours 09/03/25 09/04/25 09/05/25 23:59 23:59 23:59 Intake Total 120.83 / 120.83 4189.17 / 4189.17 157.5 / 157.5 Output Total 800 / 800 1050 / 1050 Balance 120.83 / 120.83 3389.17 / 3389.17 -892.5 / -892.5 Lab / Micro Data 09/04/25 23:22 Labs: Laboratory Results - last 24 hr 09/04/25 23:22: WBC 16.1 H, RBC 4.15 L, Hgb 12.8, Hct 38.0, MCV 91.6, MCH 30.8, MCHC 33.7, RDW Std Deviation 47.1 H, RDW Coeff of Gagan 14.1, Plt Count 108 L, MPV 12.2 H, Immature Gran % (Auto) 0.400, Neut % (Auto) 67.0, Lymph % (Auto) 6.1 L, Mckinley % (Auto) 5.5, Eos % (Auto) 20.6 H, Baso % (Auto) 0.4, Absolute Neuts (auto) 10.8 H, Absolute Lymphs (auto) 0.98, Nucleated RBC % 0, Differential Comment SCANNED ROS Constitutional Constitutional: Reports systems reviewed and no addt'l complaints, except as documented; Denies headache(s) Eyes Eyes: Denies acute decrease in peripheral vision, blurry vision or change in vision ENT HEENT: Reports systems reviewed and no addt'l complaints, except as documented Cardiovascular Cardiovascular: Denies chest pain or dizziness Respiratory/Chest Respiratory/Chest: Denies cough, dyspnea, dyspnea on exertion, shortness of breath at rest or shortness of breath with exertion Gastrointestinal Gastrointestinal: Denies abdominal pain, diarrhea, nausea or vomiting Genitourinary Genitourinary: Denies abdominal discomfort or movement Musculoskeletal Musculoskeletal: Denies limited range of motion Integumentary Integumentary: Reports systems reviewed and no addt'l complaints, except as documented Neurologic Neurologic: Reports systems reviewed and no addt'l complaints, except as documented Psychiatric Psychiatric: Reports systems reviewed and no addt'l complaints, except as documented Endocrine Endocrinology: Reports systems reviewed and no addt'l complaints, except as documented Hematologic/Lymphatic Hematologic/Lymphatic: Reports systems reviewed and no addt'l complaints, except as documented Allergic/Immunologic Allergic/Immunologic: Reports systems reviewed and no addt'l complaints, except as documented Physical Exam Const alert and oriented x3 General Appearance: cooperative Orientation / Consciousness: awake, oriented to person, oriented to place and oriented to time Exam Limitations: no limitations HEENT normocephalic Head and Scalp: normal to inspection, normocephalic and atraumatic Face and Sinus: normal facial exam Eyes General Eye: normal appearance of both eyes Neck full ROM Chest Chest: symmetrical chest wall rise Resp normal respiratory effort and normal air movement Auscultation: clear to auscultation bilaterally Cardio regular rate, regular rhythm, S1 normal heart sound, S2 normal heart sound, no murmurs, no rub, no gallops and no clicks GI normal to inspection, nondistended, normoactive bowel sounds and non-tender appearance of the vagina normal Narrative: normal lochia rubra. Laceration well approximated Bladder / Kidney Exam: no CVA tenderness Back/Spine normal ROM Extremity normal to inspection and full ROM Skin no rashes or lesions noted Neuro oriented x3, CN's II-XII intact bilaterally and moves all extremities Sensorium / Orientation: awake, alert and oriented to person Motor Exam: clonus absent Deep Tendon Reflexes: Rt Patellar (L4): 2+ and Lt Patellar (L4): 2+ Assessment & Plan (1) Second degree perineal laceration: (2) Vaginal delivery: PLAN: Plan 1) Routine PPD#1 2) BP with mild elevation, repeat normal. Will continue to monitor but discussed with patient possible medication management if needed 3) Temperature during labor and antibiotics started for 24 hours 4) Pain management 5) services PRN 6) Planning D/C home tomorrow
[2025-09-05] MEDS: Senna/Docusate Sodium 1 Tablet PO (20:49)
[2025-09-06 00:30] VITALS: BP 137/92; PULSE 91; RESP 16; TEMP 36.4; O2SAT 98
[2025-09-06 01:25] VITALS: BP 137/83; PULSE 80; RESP 16; TEMP 36.4; O2SAT 97
[2025-09-06 03:40] VITALS: BP 131/98; PULSE 89; RESP 16; TEMP 36.7; O2SAT 98
[2025-09-06 08:49] VITALS: BP 131/91; PULSE 86; RESP 16; TEMP 36.4
--- NOTE | 2025-09-06 09:00 | DS.PCM_ITS ---
Providers Date of Admission: 09/03/25 Date of Discharge: 09/06/25 Primary Care Physician: Sarah Primary Care Phys Reason For Visit: Vaginal delivery Diagnosis Discharge Diagnosis (1) Second degree perineal laceration: Status: Acute Code(s): O70.1 - Second degree perineal laceration during delivery (2) Vaginal delivery: Status: Acute Code(s): O80 - Encounter for full-term uncomplicated delivery Medications at Discharge Home Medications folic acid 1 mg tablet 2 mg PO DAILY 09/03/25 sulfasalazine 500 mg tablet PO arthritis 09/03/25 Hospital Course Operations None Procedures None Summary of Care Provided Minutes Spent on Discharge: 11 Hospital Course: 35-year-old female with polyhydramnios admitted for elective induction of labor. She was admitted on 09/04/2025. She had a vaginal delivery without complication. By day #2 she was doing well with routine care. She desired discharge home. was doing well. Weight / BMI Weight Weight: 88.507 kg Body Mass Index (BMI) 31.4 PRE- weight 70.76 kg PRE- Body Mass Index 25.2 (BMI) ABG / Lab / Microbiology Data 09/04/25 23:22 D/C Instructions May resume sexual activity in: 6 weeks Call your doctor if your incision/area has: Continuous Slow Oozing, Sudden Increased Bleeding, Foul Smelling Discharge and Swelling at the incision site Call your doctor if you observe: Fever of 101 or Higher and Inability to urinate DC O2, CPAP, BIPAP Needs Home O2 Discharge instructions: No Please Follow Up With: Carmel Sapp DO When: Follow up with our office in 1-2 and 6 weeks or as needed. [phone] Call or send a [employer] message as needed. Meaningful Use Info Meaningful Use Meaningful Use Diagnoses (Choose all that apply): None applicable Discharge Plan Admission Admit Date/Time: 09/03/25 19:24 Primary Reason for Your Visit: Vaginal delivery Attending Provider: Carmel Sapp Primary Care Provider: Sarah Ferguson Primary Discharge Orders/Prescriptions Prescriptions: Discontinued aspirin 81 mg tablet,delayed release (DR/EC) 81 mg PO DAILY No Action sulfasalazine 500 mg tablet PO folic acid 1 mg tablet 2 mg PO DAILY Referrals / Follow Up: [facility] PhysicianSarah Primary [Primary Care Provider, Medical] Disposition Disposition (needs filled in before D/C Order can be placed): Home, Self Care
[2025-09-06] MEDS: Senna/Docusate Sodium 1 Tablet PO (10:45)
[2025-09-06] MEDS: Benzocaine/Lanolin/Aloe Vera 85 GM Spray 1 SPRAY TOPICAL (13:45)
[2025-09-06] MEDS: SELF ADMINISTRATION OF MEDS 1 EACH NOTE (13:45)
== END 2025-09-06 14:45 | disposition home or self-care (01) | DRG 806 ==
PROVIDERS: Admitting Provider Obstetrics & Gynecology; Referring Provider Obstetrics & Gynecology; Visit Provider Obstetrics & Gynecology
DX: O40.3XX0 Polyhydramnios, third trimester, not applicable or unspecified (principal); Z37.0 Single live birth; O75.2 Pyrexia during labor, not elsewhere classified; O69.81X0 Labor and delivery complicated by cord around neck, without compression, not applicable or unspecified; O70.1 Second degree perineal laceration during delivery; O77.0 Labor and delivery complicated by meconium in amniotic fluid; O76 Abnormality in fetal heart rate and rhythm complicating labor and delivery; Z79.82 Long term (current) use of aspirin; Z87.891 Personal history of nicotine dependence; Z3A.40 40 weeks gestation of pregnancy; Z86.19 Personal history of other infectious and parasitic diseases
CPT/HCPCS: 59025; 59050; 85025; 86780; 86850; 86900; 86901; 88307; 99221; A4216; G0378; J2405